=== PATIENT | female | born 1975 | race Two or more races ===

== ENCOUNTER 2020-07-09 15:04 | Outpatient (REF) | payer OTHER, SELFPAY ==
[2020-07-10 10:19] LABS: CT PCR NOT DETECTED (Not Detect.); NG PCR NOT DETECTED (Not Detect.)
[2020-07-10 13:56] LABS: BV Int Neg Control Negative (Negative); BV Int Pos Control Positive (Positive)
== END 2020-07-09 15:05 | disposition home or self-care (01) ==
LOC: HO.LAB 15:04
PROVIDERS: Visit Provider Advanced Practice Midwife
DX: Z01.419 Encounter for gynecological examination (general) (routine) without abnormal findings (principal); N89.8 Other specified noninflammatory disorders of vagina; Z20.2 Contact with and (suspected) exposure to infections with a predominantly sexual mode of transmission; N92.0 Excessive and frequent menstruation with regular cycle; R10.2 Pelvic and perineal pain
CPT/HCPCS: 87480; 87491; 87510; 87591; 87660

== ENCOUNTER 2020-07-10 17:04 | Outpatient (REF) | payer OTHER, SELFPAY ==
[2020-07-11 08:01] LABS: HBc Num1 0.08 S/CO (0.00-0.79); HIV AB/AG Nonreactive (Nonreactive); HIV Num 1 0.08 S/CO (0.00-0.99); Hepatitis B Core Antibody Nonreactive (Nonreactive); ~HepC Num1 0.09 S/CO (0.00-0.79); ~Hepatitis C Antibody Nonreactive (Nonreactive)
[2020-07-11 08:38] LABS: Syphilis Screen Nonreactive (Nonreactive)
== END 2020-07-10 17:05 | disposition home or self-care (01) ==
LOC: HO.LAB 17:04
PROVIDERS: PCP Internal Medicine; Visit Provider Advanced Practice Midwife
DX: Z20.2 Contact with and (suspected) exposure to infections with a predominantly sexual mode of transmission (principal)
CPT/HCPCS: 86704; 86780; 86803; 87389

== ENCOUNTER 2020-08-02 12:37 | Outpatient (REF) | payer OTHER, SELFPAY ==
--- NOTE | 2020-08-02 12:41 | XR_ITS ---
EXAMINATION: XR CHEST CLINICAL INFORMATION: 44-year-old female with history of other infectious and parasitic disease. COMPARISON: None TECHNIQUE: 2 views of the chest were obtained. FINDINGS: Lungs are well-inflated and clear. Trachea is midline in position. No evidence of interstitial disease, consolidation or pulmonary nodule. No pleural effusion or pneumothorax. Cardiac silhouette and pulmonary vessels are normal in size. The mediastinum and rafael have normal contour. The visualized bones, and upper abdomen, are unremarkable. XR/XR chest 2V IMPRESSION: Normal chest. No acute cardiopulmonary abnormality.
== END 2020-08-02 12:38 | disposition home or self-care (01) ==
LOC: HO.XRAY 12:37
PROVIDERS: PCP Internal Medicine; Visit Provider Hospitalist
DX: Z86.19 Personal history of other infectious and parasitic diseases (principal)
CPT/HCPCS: 71046

== ENCOUNTER 2020-09-13 15:42 | Outpatient (REF) | payer OTHER, SELFPAY ==
--- NOTE | 2020-09-13 15:45 | US_ITS ---
EXAMINATION: US PELVIC COMPLETE CLINICAL INFORMATION: Pelvic and perineal pain. COMPARISON: Pelvic ultrasound 03/19/2010. TECHNIQUE: Transabdominal and transvaginal ultrasound pelvis is performed FINDINGS: The uterus is retroverted and retroflexed measuring 7.9 cm in length, 3.9 cm in AP and 4.6 cm in transverse dimension. There is a hypoechoic lesion in the anterior body of the uterus measuring 0.6 x 0.9 x 0.6 cm. It is likely a fibroid. No additional lesions seen. Endometrial thickness is 1.0 cm. Right ovary measures 3.1 x 1.5 x 1.2 cm and volume 2.9 mL. There is an echogenic corpus luteal cyst measuring 1.7 x 0.8 x 1.3 cm. Previously right ovary measured 2.2 x 2.9 x 1.8 cm. Left ovary measures 2.6 x 1.7 x 1.4 cm and volume 3.2 mL. There is an anechoic cyst measuring 1.4 x 1.1 x 1.2 cm. Previously left ovary measured 1.9 x 2.9 x 0.8 cm. There is no free fluid in the cul-de-sac. US/US transvaginal IMPRESSION: There is retroverted and retroflexed uterus with a small uterine fibroid. There is a corpus luteal cyst right ovary and a simple cyst left ovary. No free fluid seen in the cul-de-sac.
--- NOTE | 2020-09-13 15:45 | US_ITS ---
EXAMINATION: US PELVIC COMPLETE CLINICAL INFORMATION: Pelvic and perineal pain. COMPARISON: Pelvic ultrasound 03/19/2010. TECHNIQUE: Transabdominal and transvaginal ultrasound pelvis is performed FINDINGS: The uterus is retroverted and retroflexed measuring 7.9 cm in length, 3.9 cm in AP and 4.6 cm in transverse dimension. There is a hypoechoic lesion in the anterior body of the uterus measuring 0.6 x 0.9 x 0.6 cm. It is likely a fibroid. No additional lesions seen. Endometrial thickness is 1.0 cm. Right ovary measures 3.1 x 1.5 x 1.2 cm and volume 2.9 mL. There is an echogenic corpus luteal cyst measuring 1.7 x 0.8 x 1.3 cm. Previously right ovary measured 2.2 x 2.9 x 1.8 cm. Left ovary measures 2.6 x 1.7 x 1.4 cm and volume 3.2 mL. There is an anechoic cyst measuring 1.4 x 1.1 x 1.2 cm. Previously left ovary measured 1.9 x 2.9 x 0.8 cm. There is no free fluid in the cul-de-sac. US/US pelvic complete IMPRESSION: There is retroverted and retroflexed uterus with a small uterine fibroid. There is a corpus luteal cyst right ovary and a simple cyst left ovary. No free fluid seen in the cul-de-sac.
== END 2020-09-13 15:43 | disposition home or self-care (01) ==
LOC: HO.US 15:42
PROVIDERS: Visit Provider Advanced Practice Midwife
DX: R10.2 Pelvic and perineal pain (principal)
CPT/HCPCS: 76830; 76856

== ENCOUNTER → 2020-09-24 11:58 | Outpatient (BNVA) | payer OTHER, SELFPAY | PROVIDERS: Visit Provider Advanced Practice Midwife ==

== ENCOUNTER 2020-09-28 08:41 | Outpatient (REF) | payer OTHER, SELFPAY ==
[2020-09-28 09:00] LABS: COVID-19 Test Negative (Negative); IDNOW Serial# 55D5AD1C
== END 2020-09-28 08:42 | disposition home or self-care (01) ==
LOC: HO.EMPCOV 08:41
PROVIDERS: Visit Provider Internal Medicine
DX: Z20.822 Contact with and (suspected) exposure to COVID-19 (principal)
CPT/HCPCS: 36415; 87635; C9803

== ENCOUNTER 2020-10-18 07:47 | Outpatient (REF) | payer OTHER, SELFPAY ==
[2020-10-19 08:58] LABS: BV Int Neg Control Negative (Negative); BV Int Pos Control Positive (Positive)
[2020-10-19 14:01] LABS: C. trachomatis RNA TMA NOT DETECTED (NOT DETECTED); N. gonorrhoeae RNA TMA NOT DETECTED (NOT DETECTED)
== END 2020-10-18 07:48 | disposition home or self-care (01) ==
LOC: HO.LAB 07:47
PROVIDERS: PCP Internal Medicine; Visit Provider Advanced Practice Midwife
DX: N76.0 Acute vaginitis (principal); R10.2 Pelvic and perineal pain; B96.89 Other specified bacterial agents as the cause of diseases classified elsewhere; Z20.2 Contact with and (suspected) exposure to infections with a predominantly sexual mode of transmission; Z30.09 Encounter for other general counseling and advice on contraception
CPT/HCPCS: 36415; 81003; 87480; 87491; 87510; 87591; 87660

== ENCOUNTER 2020-11-16 17:05 | Outpatient (REF) | payer OTHER, SELFPAY ==
[2020-11-18 05:53] LABS: Rubella IgG Antibody 3.89 Index; Rubeola IgG (Measles) <13.50 AU/mL
[2020-11-19 08:17] LABS: HBS Num1 > 1000.00 mIU/mL (0-7.99); ~Hepatitis B Surface Antibody REACTIVE (Nonreactive)
== END 2020-11-16 17:06 | disposition home or self-care (01) ==
LOC: HO.LAB 17:05
PROVIDERS: PCP Internal Medicine; Visit Provider Internal Medicine
DX: Z01.84 Encounter for antibody response examination (principal)
CPT/HCPCS: 36415; 86706; 86735; 86762; 86765; 86787

== ENCOUNTER 2020-12-01 10:54 | Outpatient (REF) | payer OTHER, SELFPAY ==
--- NOTE | ~2020-12-01 | MM_ITS ---
EXAMINATION: MM SCREENING DIGITAL BREAST TOMOSYNTHESIS, BILATERAL CLINICAL INFORMATION: Screening. Asymptomatic. The lifetime risk of breast cancer based on the Tyrer-Cuzick Model is 7%. COMPARISON: Mammography: 04/01/2019, 01/01/2018 TECHNIQUE: Digital breast tomosynthesis is performed in both the craniocaudal and mediolateral oblique views along with computer-aided detection (CAD). Synthesized 2D images are generated from the tomosynthesis. FINDINGS: There are scattered areas of fibroglandular density (ACR BI-RADS breast composition Category b). There are no significant masses, abnormal calcifications, or other abnormalities. Parenchymal pattern is similar to prior studies. The axilla and skin contours are unremarkable. MM/MM tomosynthesis screening BI IMPRESSION: No mammographic evidence of malignancy. ASSESSMENT: BI-RADS 1: Negative RECOMMENDATION: Routine annual mammography screening. This patient's information was entered into a reminder system with a target due date for their next mammogram.
== END 2020-12-01 10:55 | disposition home or self-care (01) ==
LOC: HO.MAMMO 10:54
PROVIDERS: Visit Provider Advanced Practice Midwife
DX: Z12.31 Encounter for screening mammogram for malignant neoplasm of breast (principal)
CPT/HCPCS: 77063; 77067

== ENCOUNTER 2021-04-18 18:19 | Outpatient (REF) | payer OTHER, SELFPAY ==
--- NOTE | ~2021-04-18 | MR_ITS ---
EXAMINATION: MRI SHOULDER WITHOUT CONTRAST, LEFT CLINICAL INFORMATION: Shoulder pain. COMPARISON: None. TECHNIQUE: MRI of the shoulder without contrast is performed in a 1.5 Nalini high-field scanner. FINDINGS: CORACOACROMIAL ARCH: Mild acromioclavicular arthritis. Trace edema/ fluid in the subacromial-subdeltoid space. Undersurface of the acromion is flat. ROTATOR CUFF: Mild supraspinatus tendinosis. There is a low T1/T2 signal focus in the posterior fibers measuring approximately 0.8 x 0.6 cm (AP, ML), raising concern for calcific tendinitis. Recommend correlation x-ray. There is additional relative low signal in the supraspinatus fibers, which could be related to fibers spared from the tendinosis versus additional areas of calcific tendinitis. No measurable tear. Mild infraspinatus tendinosis. Teres minor is intact. Mild subscapularis tendinosis. ROTATOR CUFF MUSCLES: No muscle atrophy or fatty infiltration. BICEPS TENDON: Intact. LABRUM/CAPSULE: No focal labral tear is seen. Inferior capsule is intact. GLENOHUMERAL JOINT/MARROW: There is a 1 cm T2 bright focus with scattered foci of internal low signal, well-defined margins in the posterior aspect of the lateral humeral head/greater tuberosity. This has a nonaggressive appearance. This could represent degenerative changes or a low-grade chondroid lesion. No evidence of fracture. No significant effusion. MR/MR shoulder LT wo con IMPRESSION: 1. Mild supraspinatus tendinosis. Findings suggest focus of calcific tendinitis measuring 0.8 x 0.6 cm. Additional areas of low signal could be related to fibers spared from tendinosis versus additional calcific tendinitis. Recommend correlation with x-ray. No measurable tear of full-thickness defect is seen. 2. Mild infraspinatus and subscapularis tendinosis. 3. Mild acromioclavicular arthritis. 4. There is a 1 cm focus in the posterolateral humeral head/greater tuberosity has a nonaggressive appearance, could be related to degenerative changes, low-grade chondroid lesion.
== END 2021-04-18 18:20 | disposition home or self-care (01) ==
LOC: HO.MRI 18:19
PROVIDERS: PCP Internal Medicine; Visit Provider Nurse Practitioner Family
DX: M25.512 Pain in left shoulder (principal)
CPT/HCPCS: 73221

== ENCOUNTER 2021-11-07 11:55 | Outpatient (REF) | payer OTHER, SELFPAY ==
[2021-11-08 09:18] LABS: CT PCR NOT DETECTED (Not Detect.); NG PCR NOT DETECTED (Not Detect.)
[2021-11-08 09:43] LABS: BV Int Neg Control Negative (Negative); BV Int Pos Control Positive (Positive)
== END 2021-11-07 11:56 | disposition home or self-care (01) ==
LOC: HO.LNP 11:55
PROVIDERS: Visit Provider Internal Medicine
DX: N89.8 Other specified noninflammatory disorders of vagina (principal)
CPT/HCPCS: 87480; 87491; 87510; 87591; 87660

== ENCOUNTER 2023-01-29 13:08 | Outpatient (REF) | payer OTHER, SELFPAY ==
[2023-01-30 10:26] LABS: CT PCR NOT DETECTED (Not Detect.); NG PCR NOT DETECTED (Not Detect.)
[2023-01-30 11:13] LABS: BV Int Neg Control Negative (Negative); BV Int Pos Control Positive (Positive)
== END 2023-01-29 13:09 | disposition home or self-care (01) ==
LOC: HO.LAB 13:08
PROVIDERS: PCP Internal Medicine; Visit Provider Advanced Practice Midwife
DX: Z01.419 Encounter for gynecological examination (general) (routine) without abnormal findings (principal); N92.1 Excessive and frequent menstruation with irregular cycle; Z20.2 Contact with and (suspected) exposure to infections with a predominantly sexual mode of transmission
CPT/HCPCS: 0353U; 81025; 87480; 87510; 87660

== ENCOUNTER 2023-01-29 13:51 | Outpatient (REF) | payer OTHER, SELFPAY ==
[2023-02-03 22:08] LABS: HPV mRNA E6/E7 rflx Not Detected (Not Detected)
== END 2023-01-29 13:52 | disposition home or self-care (01) ==
LOC: HO.LNP 13:51
PROVIDERS: Visit Provider Advanced Practice Midwife
DX: Z01.419 Encounter for gynecological examination (general) (routine) without abnormal findings (principal); N92.1 Excessive and frequent menstruation with irregular cycle; Z20.2 Contact with and (suspected) exposure to infections with a predominantly sexual mode of transmission
CPT/HCPCS: 87624; 88142

== ENCOUNTER 2023-03-13 12:41 | Outpatient (REF) | payer OTHER, SELFPAY ==
--- NOTE | ~2023-03-13 | US_ITS ---
EXAMINATION: US PELVIS CLINICAL INFORMATION: Excessive and frequent menstruation. Last menstrual period 03/09/2023. COMPARISON: Pelvic ultrasound 09/13/2020, 03/19/2010. TECHNIQUE: Transabdominal and transvaginal ultrasound pelvis is performed. FINDINGS: The uterus is retroverted, retroflexed, heterogeneous and measures 9.5 x 4.9 x 6.9 cm, volume 168.18 mL. There is a 0.9 x 1.0 x 1.1 cm echogenic mass at the junction of the uterus and endometrium, previously measured 0.6 x 0.9 x 0.6 cm. Differential considerations include submucosal fibroid and less likely polyp. Endometrial thickness is 0.4 cm. Right ovary measures 2.8 x 1.2 x 1.0 cm, volume 1.8 mL, and was seen only on transvaginal ultrasound. Right ovary is grossly unremarkable. Left ovary measures 2.9 x 1.6 x 2.2 cm, volume 5.3 mL. Left ovarian 1.9 x 1.2 x 1.8 cm simple cyst is likely physiologic. There is no indication at this time for further followup. There is no significant free fluid. Prominent vasculature in the bilateral adnexal regions raises the possibility of pelvic congestion syndrome. US/US pelvic and transvaginal IMPRESSION: 1.1 cm echogenic mass at the junction of the uterus and endometrium, has increased in size. Differential considerations include submucosal fibroid and less likely polyp. Gynecologic consultation recommended to determine further management for this patient with abnormal uterine bleeding. Endometrial thickness is 0.4 cm. Unremarkable bilateral ovaries. Prominent vasculature in the bilateral adnexal regions raises the possibility of pelvic congestion syndrome.
== END 2023-03-13 12:42 | disposition home or self-care (01) ==
LOC: HO.US 12:41
PROVIDERS: Visit Provider Advanced Practice Midwife
DX: N92.0 Excessive and frequent menstruation with regular cycle (principal)
CPT/HCPCS: 76830; 76856

== ENCOUNTER 2023-03-25 11:33 | Outpatient (AMB) | payer OTHER, SELFPAY ==
--- NOTE | 2023-03-25 11:34 | MHC.OFFVIS ---
Intake Vital Signs 03/25/23 11:35 Height 5 ft 3.5 in Weight 148 lb BMI 25.8 BP 96/60 Intake Visit Reasons: US follow up Intake Note: The patient agreed to use of a emergency medical technician/driver during this encounter. Scribed for RAJAN Mcdonough by Angélica Zamora emergency medical technician/driver, on 03/25/2023 at 11:46 am EST. Allergies diphenhydramine [From Benadryl] Adverse Reaction (Verified 03/25/23 11:35) Anxiety, legs getting numb Is last menstrual period known: Yes Last menstrual period: 03/09/23 HPI HPI Comments History of Present Illness Details She is here to discuss US results regarding heavy menstrual bleeding. Reports she has uncomfortable intimacy due to her retroverted uterus. [facility] Medical History Anemia Endometrial polyp Hx of anxiety disorder Hx of breast lump Hx of gastroesophageal reflux (GERD) Hx of migraine headaches Hx of seasonal allergies Migraine without aura Surgical History History of surgical removal of ganglion cyst Hx of tubal ligation Family History Father Hx of anxiety disorder Hx of human immunodeficiency virus I infection Mother Diabetes mellitus Hypertension Maternal Grandfather Diabetes mellitus Hypertension CVD (cardiovascular disease) Paternal Grandmother Hx of glaucoma Hx of acute arthritis Paternal Grandfather Myocardial infarction Social History Housing: Apartment Alcohol intake: current Alcohol intake frequency: a few times a month Patient Tobacco Use Status: Never used Tobacco e-Cigarette/Vaping Use: Never Used Second Hand Smoke Exposure: No Current occupational status: employed Sexual orientation: Straight/Heterosexual Gender identity: Female Female Reproductive History Menstrual Age of Menarche: 13 Date of last menstrual period: 03/09/23 Physical Exam Vital Signs: Last Vital Signs BP 96/60 03/25/23 11:35 BMI result Body Mass Index 25.8 Const General: cooperative, healthy appearing, comfortable, no acute distress, well developed, alert and awake Results Reviewed Results Reviewed: EXAMINATION:? US PELVIS CLINICAL INFORMATION:? Excessive and frequent menstruation. Last menstrual period 03/09/2023. COMPARISON: Pelvic ultrasound 09/13/2020, 03/19/2010. TECHNIQUE: Transabdominal and transvaginal ultrasound pelvis is performed.? FINDINGS: The uterus is retroverted, retroflexed, heterogeneous and measures 9.5 x 4.9 x 6.9 cm, volume 168.18 mL. There is a 0.9 x 1.0 x 1.1 cm echogenic mass at the junction of the uterus and endometrium, previously measured 0.6 x 0.9 x 0.6 cm. Differential considerations include submucosal fibroid and less likely polyp. Endometrial thickness is 0.4 cm. Right ovary measures 2.8 x 1.2 x 1.0 cm, volume 1.8 mL, and was seen only on transvaginal ultrasound. Right ovary is grossly unremarkable. Left ovary measures 2.9 x 1.6 x 2.2 cm, volume 5.3 mL. Left ovarian 1.9 x 1.2 x 1.8 cm simple cyst is likely physiologic. There is no indication at this time for further followup. There is no significant free fluid. Prominent vasculature in the bilateral adnexal regions raises the possibility of pelvic congestion syndrome. US/US pelvic and transvaginal IMPRESSION: 1.1 cm echogenic mass at the junction of the uterus and endometrium, has increased in size. Differential considerations include submucosal fibroid and less likely polyp. ? Gynecologic consultation recommended to determine further management for this patient with abnormal uterine bleeding. ? Endometrial thickness is 0.4 cm. ? Unremarkable bilateral ovaries. ? Prominent vasculature in the bilateral adnexal regions raises the possibility of pelvic congestion syndrome. Assessment & Plan Assessment & Plan (1) Heavy menstrual bleeding: Code(s): N92.0 - Excessive and frequent menstruation with regular cycle Plan: Discussed: US findings of: 1.1 cm echogenic mass at the junction of the uterus and endometrium, has increased in size. Differential considerations include submucosal fibroid and less likely polyp. Gynecologic consultation recommended to determine further management for this patient with abnormal uterine bleeding. Endometrial thickness is 0.4 cm. Unremarkable bilateral ovaries. Prominent vasculature in the bilateral adnexal regions raises the possibility of pelvic congestion syndrome. Repositioning for intimacy and depth of penetration, self help measures. Schedule consult with Dr. Levy regarding endometrial ?polyp/fibroid mass for hysteropscopy evaluation. Encouraged labs today as she forgot to have them done. Reviewed different BC options for cycle control including IUD in the future. Encouraged patient to sign up for patient portal. All of her questions and concerns were addressed to the best of my ability and shared decision making. She is agreeable to plan of care. (2) Encounter to discuss test results: Code(s): Z71.2 - Person consulting for explanation of examination or test findings (3) Endometrial polyp: Code(s): N84.0 - Polyp of corpus uteri Coding Level of Care Code Est Pt Level 3 (64239) Diagnoses Heavy menstrual bleeding N92.0 Encounter to discuss test results Z71.2 Endometrial polyp N84.0
[2023-03-25 11:35] VITALS: BP 96/60; BMI 25.8
== END 2023-03-25 11:52 | disposition home or self-care (01) ==
LOC: HO.HWS 11:33
PROVIDERS: PCP Internal Medicine; Visit Provider Advanced Practice Midwife
DX: N92.0 Excessive and frequent menstruation with regular cycle (principal); Z71.2 Person consulting for explanation of examination or test findings; N84.0 Polyp of corpus uteri
CPT/HCPCS: 99213

== ENCOUNTER → 2023-03-25 11:33 | Outpatient (BNVA) | payer OTHER, SELFPAY | PROVIDERS: PCP Internal Medicine; Visit Provider Advanced Practice Midwife ==

== ENCOUNTER 2023-03-25 12:01 | Outpatient (REF) | payer OTHER, SELFPAY ==
[2023-03-25 13:36] LABS: Hematocrit 39.3 % (37.0-47.0); Hemoglobin 12.5 g/dl (12.0-16.0); Mean Corpuscular HGB Conc 31.8 g/dl (31.0-35.0); Mean Corpuscular Hemoglobin 28.2 pg (27.0-33.0); Mean Corpuscular Volume 88.7 fL (80.0-98.0); Mean Platelet Volume 12.1 fL (9.4-12.3); Platelet Count 281 X10*3/uL (160-400); Red Blood Count 4.43 X10*6/uL (4.20-5.50); Red Cell Distribution Width 13.8 % (11.0-16.0); White Blood Count 4.8 X10*3/uL (4.8-10.8)
[2023-03-25 14:16] LABS: Thyroid Stimulating Hormone 0.61 uIU/mL (0.32-4.0)
[2023-03-25 14:48] LABS: Syphilis Screen Nonreactive (Nonreactive)
[2023-03-26 05:47] LABS: HIV AB/AG Nonreactive (Nonreactive); HIV Num 1 0.06 S/CO (0.00-0.99); Hepatitis B Core Antibody Nonreactive (Nonreactive); ~HepC Num1 0.08 S/CO (0.00-0.79); ~Hepatitis C Antibody Nonreactive (Nonreactive)
== END 2023-03-25 12:02 | disposition home or self-care (01) ==
LOC: HO.10HDL 12:01
PROVIDERS: Visit Provider Advanced Practice Midwife
DX: Z11.4 Encounter for screening for human immunodeficiency virus [HIV] (principal); N92.1 Excessive and frequent menstruation with irregular cycle; Z20.2 Contact with and (suspected) exposure to infections with a predominantly sexual mode of transmission
CPT/HCPCS: 36415; 84443; 85027; 86704; 86780; 86803; 87389

== ENCOUNTER 2023-04-02 11:31 | Outpatient (AMB) | payer OTHER, SELFPAY ==
[2023-04-02 11:34] VITALS: BP 110/76; BMI 25.8
--- NOTE | 2023-04-02 11:34 | MHC.OFFVIS ---
Intake Vital Signs 04/02/23 11:34 Height 5 ft 3.5 in Weight 148 lb BMI 25.8 BP 110/76 Intake Visit Reasons: pre op Calibration Specialist Required: No Machine Programmer: Machine Programmer Present Allergies diphenhydramine [From Benadryl] Adverse Reaction (Verified 04/02/23 11:34) Anxiety, legs getting numb Is last menstrual period known: Yes Last menstrual period: 06/21/20 Post menopausal: No Patient : No Do you need a note to return to daycare/school/sports/work: Yes (for surgery on thursday) HPI HPI Comments History of Present Illness Details Presenting referred from them Precious Olivera CNM regarding abnormal pelvic ultrasound. The patient was seen for abnormal uterine bleeding , the following workup was done.: H&H= 12.5/39.3 TSH, GC and chlamydia were negative. Co testing was done was negative. Last Mammogram was done in 02/11 was BI-RADS 1 Pelvic ultrasound showed the following: The uterus is retroverted, retroflexed, heterogeneous and measures 9.5 x 4.9 x 6.9 cm, volume 168.18 mL. There is a 0.9 x 1.0 x 1.1 cm echogenic mass at the junction of the uterus and endometrium, previously measured 0.6 x 0.9 x 0.6 cm. Differential considerations include submucosal fibroid and less likely polyp. Endometrial thickness is 0.4 cm. Right ovary measures 2.8 x 1.2 x 1.0 cm, volume 1.8 mL, and was seen only on transvaginal ultrasound. Right ovary is grossly unremarkable. Left ovary measures 2.9 x 1.6 x 2.2 cm, volume 5.3 mL. Left ovarian 1.9 x 1.2 x 1.8 cm simple cyst is likely physiologic. There is no indication at this time for further followup. There is no significant free fluid. Prominent vasculature in the bilateral adnexal regions raises the possibility of pelvic congestion syndrome. PFSH Medical History Anemia Endometrial polyp Hx of anxiety disorder Hx of breast lump Hx of gastroesophageal reflux (GERD) Hx of migraine headaches Hx of seasonal allergies Migraine without aura Surgical History History of surgical removal of ganglion cyst Hx of tubal ligation Family History Father Hx of anxiety disorder Hx of human immunodeficiency virus I infection Mother Diabetes mellitus Hypertension Maternal Grandfather Diabetes mellitus Hypertension CVD (cardiovascular disease) Paternal Grandmother Hx of glaucoma Hx of acute arthritis Paternal Grandfather Myocardial infarction Social History Housing: Apartment Alcohol intake: current Alcohol intake frequency: a few times a month Patient Tobacco Use Status: Never used Tobacco e-Cigarette/Vaping Use: Never Used Second Hand Smoke Exposure: No Current occupational status: employed Sexual orientation: Straight/Heterosexual Gender identity: Female Female Reproductive History Menstrual Age of Menarche: 13 Date of last menstrual period: 06/21/20 Total pregnancies: 2 Full term: 2 Date of last pap smear: 02/02/23 (negative) Review of Systems Card Reports as per HPI and Reports no additional complaints Resp Reports as per HPI and Reports no additional complaints GI Reports as per HPI and Reports no additional complaints Reports as per HPI Physical Exam Vital Signs: Last Vital Signs BP 110/76 04/02/23 11:34 BMI result Body Mass Index 25.8 Const General: cooperative, healthy appearing and comfortable Chest Chest palpation & inspection: normal inspection of the chest and normal palpation of entire chest wall Breast/axilla inspection: normal inspection of the breasts and normal inspection of the axillae Breast/axilla palpation: normal palpation of the breasts, normal palpation of the axillae and no axillary lymphadenopathy Resp Effort & Inspection: normal respiratory effort Auscultation: clear to auscultation bilaterally Percussion: percussion normal Cardio Palpation: normal PMI Rate: regular rate Rhythm: regular rhythm Heart sounds: no murmurs and no rubs Peripheral pulses: Peripheral pulses 2+ throughout GI Inspection: Yes normal to inspection Palpation (GI): Soft to palpation, nontender, no guarding, not rigid and No hepatosplenomegaly present Percussion: Yes normal to percussion Auscultation: normal bowel sounds Rectal Exam - Female: deferred Assessment & Plan Assessment & Plan (1) Abnormal ultrasound of endometrium: Comment: Submucosal myoma versus polyp Code(s): R93.5 - Abnormal findings on diagnostic imaging of other abdominal regions, including retroperitoneum Plan: Mammogram ordered. Discussed with the patient the finding on ultrasound showing possible submucosal myoma versus polyp. Recommended hysteroscopy D&C possible polypectomy/myomectomy. Discussed with the patient the procedure , all benefits and risks including but not limited to inability to complete the procedure , bleeding, infection, possible need for blood transfusion with all its risk ( HIV,syphilis, Hepatitis, anaphylaxis shock, others..), injury to bladder, rectum, possible need for laparoscopy/laparotomy or hysterectomy. The patient verbalized understanding and signed the consent. Instructions given the patient to schedule a 2 week postoperative appointment Orders: Orders MM screening mammo BI Today Z12.31 - Encounter for screening mammogram for malignant neoplasm of breast Coding Level of Care Code Est Pt Level 3 (11914) Diagnoses Abnormal ultrasound of endometrium R93.5
== END 2023-04-02 13:38 | disposition home or self-care (01) ==
LOC: HO.HWS 11:31
PROVIDERS: PCP Internal Medicine; Visit Provider Obstetrics & Gynecology
DX: R93.5 Abnormal findings on diagnostic imaging of other abdominal regions, including retroperitoneum (principal)
CPT/HCPCS: 99213

== ENCOUNTER → 2023-04-02 11:31 | Outpatient (BNVA) | payer OTHER, SELFPAY | PROVIDERS: PCP Internal Medicine; Visit Provider Obstetrics & Gynecology ==

== ENCOUNTER 2023-05-01 06:03 | Day surgery (SDC) | payer OTHER, SELFPAY ==
[2023-04-29 10:03] VITALS: BMI 25.8
--- NOTE | 2023-04-30 08:47 | P.CONAN_ITS ---
Documented by User: Ana Baird NP 04/30/23 08:48 HPI - Anesthesia Eval Consult details Narrative: 47yo F for D&C Hysteroscopy poss myomectomy/polypectomy s/p tubal PMFSH Active Problems Active Problems: All Active Problems (Updated 04/02/23 @ 11:39 by Srinivasa Levy MD) Abnormal ultrasound of endometrium (Acute) Endometrial polyp (Acute) Migraine without aura (Acute) Left shoulder pain (Acute) IBS (irritable bowel syndrome) (Acute) Abdominal pain (Acute) Dyslipidemia (Acute) Vaginal candidiasis (Acute) History of 2019 novel coronavirus disease (COVID-19) (Acute) Pelvic pain in female (Acute) Vaginal odor (Acute) Heavy menstrual bleeding (Acute) Past Medical History Medical History (Updated 05/01/23 @ 06:13 by Kanwal Alston RN) Borderline high cholesterol IBS (irritable bowel syndrome) Endometrial polyp Migraine without aura Anemia Hx of breast lump Hx of anxiety disorder Hx of seasonal allergies Hx of migraine headaches Hx of gastroesophageal reflux (GERD) Family History Family History Father Hx of anxiety disorder Hx of human immunodeficiency virus I infection Mother Diabetes mellitus Hypertension Maternal Grandfather Diabetes mellitus Hypertension CVD (cardiovascular disease) Paternal Grandmother Hx of glaucoma Hx of acute arthritis Paternal Grandfather Myocardial infarction Surgical History Surgical History (Updated 05/01/23 @ 06:14 by Kanwal Alston RN) History of lumpectomy of right breast Hx of tubal ligation History of surgical removal of ganglion cyst Social History Social History Housing: Apartment Alcohol intake: current Alcohol intake frequency: a few times a month Patient Tobacco Use Status: Never used Tobacco e-Cigarette/Vaping Use: Never Used Second Hand Smoke Exposure: No Current occupational status: employed Sexual orientation: Straight/Heterosexual Gender identity: Female Meds Allergies Allergy/AdvReac Type Severity Reaction Status Date / Time diphenhydramine AdvReac Anxiety, Verified 05/01/23 06:14 [From Benadryl] legs getting numb Home Medications Medication Instructions Recorded Confirmed Last Taken Type eletriptan 40 mg tablet (Relpax) 40 mg PO BID PRN Migraine Headache 07/09/20 05/01/23 Unknown History topiramate 25 mg tablet (Topamax) 25 mg PO DAILY 07/09/20 05/01/23 Unknown Histo ry cetirizine 10 mg tablet (Zyrtec) 10 mg PO DAILY 01/29/21 05/01/23 Unknown History Exam Exam Date and Time: April 30, 2023 0847 Height,Weight and Vital Signs: Height 5 ft 3.5 in Weight 67.132 kg Assessment and Plan Assessment Anesthesia Assessment: Chart Reviewed Documented by User: Daljit Grimes MD 05/01/23 07:29 [facility] Past Medical History Medical History (Updated 05/01/23 @ 06:13 by Kanwal Alston RN) Borderline high cholesterol IBS (irritable bowel syndrome) Endometrial polyp Migraine without aura Anemia Hx of breast lump Hx of anxiety disorder Hx of seasonal allergies Hx of migraine headaches Hx of gastroesophageal reflux (GERD) Patient : No Family History Family History Father Hx of anxiety disorder Hx of human immunodeficiency virus I infection Mother Diabetes mellitus Hypertension Maternal Grandfather Diabetes mellitus Hypertension CVD (cardiovascular disease) Paternal Grandmother Hx of glaucoma Hx of acute arthritis Paternal Grandfather Myocardial infarction Family history of problems with anesthesia: No Surgical History Surgical History (Updated 05/01/23 @ 06:14 by Kanwal Alston RN) History of lumpectomy of right breast Hx of tubal ligation History of surgical removal of ganglion cyst History of Problems with Anesthesia: No Social History Social History Housing: Apartment Alcohol intake: current Alcohol intake frequency: a few times a month Patient Tobacco Use Status: Never used Tobacco e-Cigarette/Vaping Use: Never Used Second Hand Smoke Exposure: No Current occupational status: employed Sexual orientation: Straight/Heterosexual Gender identity: Female Meds Allergies Allergy/AdvReac Type Severity Reaction Status Date / Time diphenhydramine AdvReac Anxiety, Verified 05/01/23 06:14 [From Arben] legs getting numb Home Medications Medication Instructions Recorded Confirmed Last Taken Type eletriptan 40 mg tablet (Relpax) 40 mg PO BID PRN Migraine Headache 07/09/20 05/01/23 Unknown History topiramate 25 mg tablet (Topamax) 25 mg PO DAILY 07/09/20 05/01/23 Unknown History cetirizine 10 mg tablet (Zyrtec) 10 mg PO DAILY 01/29/21 05/01/23 Unknown History Exam Airway Mallampati Class: II TM Dist: >3cm Neck ROM: Full Loose/Missing/Broken Teeth: No Heart: ok Lungs: ok Assessment and Plan Assessment Anesthesia Assessment: Anesthesia Plan Discussed Final Anesthetic Review Family History of Problems with Anesthesia: No History of Problems with Anesthesia: No NPO: Yes ASA Class: II Final Preanesthetic Review: No Changes in Pt Med Stat, Meds/Allgs Chart Reviewed, Consent Obtained/Reviewed and Anes Risks/Benef Reviewed Patient Risk: Low Procedure Risk: Low Anesthetic Plan Anesthetic Plan: GA and Agree w/ Assess. and Plan Disposition: Standard PACU
[2023-05-01 06:20] VITALS: BP 108/71; PULSE 69; RESP 15; TEMP 36.4; O2SAT 100
[2023-05-01 06:22] LABS: UPreg QC Valid YES; Urine Pregnancy NEGATIVE (NEGATIVE)
[2023-05-01] MEDS: Lactated Ringers 1,000 ML 100 ML IVCONT (06:34)
--- NOTE | 2023-05-01 07:33 | MHC.SHP ---
Pre-Procedural Eval Section A Date of Service: 05/01/23 The patient is an INPATIENT: No Changes since office visit: No Cold of Flu in the past 2 weeks, No New Medical Problems, No Changes in Medication and No Patient answered all questions The History & Physical has been completed within 30 days and I have reviewed it.: Yes Section B Chief Complaint: Abnormal findings on diagnostic imaging of other a Allergies: Allergies Allergy/AdvReac Type Severity Reaction Status Date / Time diphenhydramine AdvReac Anxiety, Verified 05/01/23 06:14 [From Benadryl] legs getting numb Plan Diagnosis/Plan: Unchanged I have reviewed the history and physical and performed a pertinent physical examination on my patient. No changes have occurred unless specified. Time Spent With Patient Time: Total time managing care of this patient today ____ minutes.
--- NOTE | 2023-05-01 08:08 | PM.OP ---
Brief Operative Note Date of Service: 05/01/23 Pre-op diagnosis: AUB, abnormal endometrium by US Post-op diagnosis: same (normal endometrial cavity no evidence of pathology) Procedure: Hysteroscopy D&C Surgeon: Srinivasa Levy MD Anesthesia: GLMA Was an Elevator Installer used for this Procedure?: No Estimated blood loss (mL): 0 Pathology: other (Endometrial Scrapping.) Condition: stable Disposition: PACU
[2023-05-01 08:12] VITALS: BP 109/73; PULSE 77; RESP 16; TEMP 36.5; O2SAT 96
[2023-05-01 08:17] VITALS: BP 110/72; PULSE 72; RESP 16; O2SAT 99
--- NOTE | 2023-05-01 08:17 | PM.OP ---
Brief Operative Note Surgeon: Srinivasa Levy MD Was an Wet Crown Blocking Operator used for this Procedure?: No
--- NOTE | 2023-05-01 08:19 | W.PM.OPN ---
Operative Note Operative Note Date of Service: 05/01/23 Narrative: Preop Diagnosis: Abnormal uterine bleeding, abnormal endometrium by US Operation: Diagnostic Hysteroscopy, Dilataion & Curettage Post Op Diagnosis: Normal endometrial cavity with no evidence of pathology QBL: Minimal Anesthesia: GLMA Surgeon: Srinivasa Levy MD Building Equipment Operator: None Complication: None Pathology: Endometrial Scrapings Procedure: The patient was put in the dorsal lithotomy position, scrubbed, and draped in the usual manner. A sterile speculum was inserted in the patient's vagina. The anterior lip of the cervix was grasped with a single tooth tenaculum. The cervix was dilated up to 5 mm, then the scope was inserted in the patient's uterus. Inspection revealed normal endometrial cavity with no evidence of pathology. The scope was then taken out from the uterine cavity, sharp curettings was carried on with minimal to moderate amount of tissues retrieved. At the end of the procedure, all instruments were taken out of the patient uterine and vaginal cavity. The single tooth tenaculum was removed and homeostasis was assured using pressure and Monsel solution. The patient tolerated the procedure well and was transferred to the PACU in a stable condition.
[2023-05-01 08:27] VITALS: BP 110/72; PULSE 64; RESP 16; O2SAT 100
[2023-05-01 08:42] VITALS: BP 109/73; PULSE 61; RESP 16; O2SAT 100
[2023-05-01 08:54] VITALS: BP 102/67; PULSE 63; RESP 16; TEMP 36.6; O2SAT 100
== END 2023-05-01 09:30 | disposition home or self-care (01) ==
PROVIDERS: PCP Internal Medicine; Visit Provider Obstetrics & Gynecology
PROC: 0UDB8ZZ Extraction of Endometrium, Via Natural or Artificial Opening Endoscopic (ICD-10-PCS; CPT 58558; principal; 2023-05-01 07:30)
DX: N93.9 Abnormal uterine and vaginal bleeding, unspecified (principal); D64.9 Anemia, unspecified; G43.009 Migraine without aura, not intractable, without status migrainosus; Z98.51 Tubal ligation status; Z79.899 Other long term (current) drug therapy; Z88.1 Allergy status to other antibiotic agents
CPT/HCPCS: 58558; 81025; 88305; J1885; J2405; J3010

== ENCOUNTER → 2023-05-01 06:03 | Outpatient (BNV) | payer OTHER, SELFPAY | PROVIDERS: PCP Internal Medicine; Visit Provider Obstetrics & Gynecology | DX: R93.5 Abnormal findings on diagnostic imaging of other abdominal regions, including retroperitoneum (principal) | CPT/HCPCS: 58558 ==

== ENCOUNTER → 2023-05-08 11:14 | Outpatient (BNVA) | payer OTHER, SELFPAY | PROVIDERS: PCP Internal Medicine | DX: Z13.89 Encounter for screening for other disorder (principal) | CPT/HCPCS: 99204 ==

== ENCOUNTER 2023-05-10 12:52 | Emergency (ER) | payer OTHER, SELFPAY ==
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
--- NOTE | ~2023-05-10 | XR_ITS ---
EXAMINATION: XR LUMBOSACRAL SPINE CLINICAL INFORMATION: Back pain COMPARISON: 11/10/2017 TECHNIQUE: Three views of the lumbosacral spine. FINDINGS: The vertebral bodies and posterior elements are normal. The disc spaces are preserved and the vertebral alignment is normal. The paraspinal soft tissues are normal. Bowel gas pattern is unremarkable. XR/XR lumbar spine 2-3V IMPRESSION: Unremarkable examination.
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
[2023-05-10 13:48] VITALS: BP 121/80; PULSE 80; RESP 18; TEMP 36.6; O2SAT 100; BMI 27.1
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
[2023-05-10] MEDS: 0.9 % Sodium Chloride 1,000 ML 999 ML IV (15:33)
[2023-05-10] MEDS: Ketorolac Tromethamine 15 MG/ML VIAL IVPUSH (15:33)
[2023-05-10 15:47] VITALS: BP 116/80; RESP 14; O2SAT 100
[2023-05-10 15:53] LABS: MANUAL DIFF FLAG NO
[2023-05-10 15:56] LABS: Basophils Percent Auto 0.7 % (0-2); Eosinophils Absolute Auto 0.3 X10*3/uL (0.0-0.4); Eosinophils Percent Auto 5.5 % (0-4); Hematocrit 34.6 % (37.0-47.0); Hemoglobin 11.3 g/dl (12.0-16.0); Imm Gran Abs Auto 0.02 X10*3/uL (0.00-0.03); Imm Gran Pct Auto 0.4 % (0.0-0.4); Lymphocytes Absolute Auto 1.5 X10*3/uL (1.2-4.9); Lymphocytes Percent Auto 26.1 % (20-40); Mean Corpuscular HGB Conc 32.7 g/dl (31.0-35.0); Mean Corpuscular Hemoglobin 28.9 pg (27.0-33.0); Mean Corpuscular Volume 88.5 fL (80.0-98.0); Mean Platelet Volume 10.5 fL (9.4-12.3); Monocytes Absolute Auto 0.5 X10*3/uL (0.1-1.2); Monocytes Percent Auto 9.2 % (2-11); Neutrophils Absolute Auto 3.3 x10*3/uL (2.0-8.3); Neutrophils Percent Auto 58.1 % (45-73); Platelet Count 238 X10*3/uL (160-400); Red Blood Count 3.91 X10*6/uL (4.20-5.50); Red Cell Distribution Width 14.1 % (11.0-16.0); White Blood Count 5.6 X10*3/uL (4.8-10.8)
[2023-05-10 16:29] LABS: Alanine Aminotransferase 10 U/L (0-31); Albumin Level 3.8 g/dL (3.5-5.0); Alkaline Phosphatase 54 U/L (39-117); Anion Gap 10 (12-20); Aspartate Amino Transferase 14 U/L (5-31); Bilirubin Total 0.4 mg/dL (0.0-1.0); Blood Urea Nitrogen 13 mg/dL (9-16); Calcium 8.1 mg/dL (8.4-10.2); Carbon Dioxide 21 mmol/L (22-29); Chloride 111 mmol/L (96-108); Creatinine Clr Calc Pharmacy 95.2; Estimated Glomerular Filt Rate > 60; Glucose Random 91 mg/dL (60-115); HCG Quantitative < 2 mIU/mL; Potassium 3.7 mmol/L (3.3-5.1); Sodium 138 mmol/L (135-145); Total Protein 6.8 g/dL (6.5-8.0)
--- NOTE | 2023-05-10 16:49 | PC.NURSE ---
pt requesting to leave after CT scan and get called with results. pt sts she gets anxious in hospitals and hasn't eaten all day.
[2023-05-10] MEDS: iohexoL 350 MG/ML 100 ML INFUS..BTL 85 ML IV (17:11)
== END 2023-05-10 17:55 | disposition left against medical advice (07) ==
PROVIDERS: Nurse Practitioner Family; Emergency Provider Student in an Organized Health Care Education/Training Program; PCP Internal Medicine
DX: S16.1XXA Strain of muscle, fascia and tendon at neck level, initial encounter (principal); M54.50 Low back pain, unspecified; R51.9 Headache, unspecified; M54.6 Pain in thoracic spine; R10.2 Pelvic and perineal pain; X58.XXXA Exposure to other specified factors, initial encounter; Y93.9 Activity, unspecified; Y92.9 Unspecified place or not applicable; Y99.9 Unspecified external cause status; Z79.899 Other long term (current) drug therapy
CPT/HCPCS: 36415; 70450; 71260; 72100; 72125; 74177; 80053; 84702; 85025; 99284; 99285; J1885; Q9967

== ENCOUNTER 2023-05-11 14:55 | Outpatient (AMB) | payer OTHER, SELFPAY ==
[2023-05-11 15:17] VITALS: BP 116/70; PULSE 85; TEMP 36.7; O2SAT 98; BMI 27.8
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
== END 2023-05-11 16:21 | disposition home or self-care (01) ==
PROVIDERS: PCP Internal Medicine; Visit Provider Physician Assistant
DX: M54.6 Pain in thoracic spine (principal); M54.2 Cervicalgia; R10.2 Pelvic and perineal pain
CPT/HCPCS: 99213

== ENCOUNTER 2023-05-13 10:31 | Outpatient (AMB) | payer OTHER, SELFPAY ==
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
[2023-05-13 10:36] VITALS: BP 110/64; PULSE 80; O2SAT 97; BMI 27.2
== END 2023-05-13 12:06 | disposition home or self-care (01) ==
PROVIDERS: PCP Internal Medicine; Visit Provider Internal Medicine
DX: S13.4XXA Sprain of ligaments of cervical spine, initial encounter (principal); M54.50 Low back pain, unspecified; Z87.828 Personal history of other (healed) physical injury and trauma
CPT/HCPCS: 99213

== ENCOUNTER 2023-05-14 12:01 | Outpatient (AMB) | payer OTHER, SELFPAY ==
--- NOTE | 2023-05-14 12:10 | MHC.OFFVIS ---
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 The pathology showed the following: Endometrium, curettage: Early secretory endometrium with stromal breakdown; negative for atypia, hyperplasia or malignancy. The following workup was done for AUB: H&H= 12.5/39.3 TSH, GC and chlamydia were negative. Co testing was done was negative. Last Mammogram was done in 02/11 was BI-RADS 1 Pelvic ultrasound showed the following: The uterus is retroverted, retroflexed, heterogeneous and measures 9.5 x 4.9 x 6.9 cm, volume 168.18 mL. There is a 0.9 x 1.0 x 1.1 cm echogenic mass at the junction of the uterus and endometrium, previously measured 0.6 x 0.9 x 0.6 cm. Differential considerations include submucosal fibroid and less likely polyp. Endometrial thickness is 0.4 cm. Right ovary measures 2.8 x 1.2 x 1.0 cm, volume 1.8 mL, and was seen only on transvaginal ultrasound. Right ovary is grossly unremarkable. Left ovary measures 2.9 x 1.6 x 2.2 cm, volume 5.3 mL. Left ovarian 1.9 x 1.2 x 1.8 cm simple cyst is likely physiologic. There is no indication at this time for further followup. There is no significant free fluid. Prominent vasculature in the bilateral adnexal regions raises the possibility of pelvic congestion syndrome. [facility] Medical History Borderline high cholesterol IBS (irritable bowel syndrome) Endometrial polyp Migraine without aura Anemia Hx of breast lump Hx of anxiety disorder Hx of seasonal allergies Hx of migraine headaches Hx of gastroesophageal reflux (GERD) Surgical History History of lumpectomy of right breast Hx of tubal ligation History of surgical removal of ganglion cyst Family History Father Hx of anxiety disorder Hx of human immunodeficiency virus I infection Mother Diabetes mellitus Hypertension Maternal Grandfather Diabetes mellitus Hypertension CVD (cardiovascular disease) Paternal Grandmother Hx of glaucoma Hx of acute arthritis Paternal Grandfather Myocardial infarction Social History Housing: Apartment Alcohol intake: current Alcohol intake frequency: a few times a week Patient Tobacco Use Status: Never used Tobacco e-Cigarette/Vaping Use: Never Used Second Hand Smoke Exposure: No Current occupational status: employed Sexual orientation: Straight/Heterosexual Gender identity: Female Cognitive needs: No Hearing needs: No Vision needs: Yes Female Reproductive History Menstrual Age of Menarche: 13 Review of Systems Const All systems reviewed & are unremarkable except as noted in HPI and below Reports as per HPI and Reports no additional complaints GI Reports no additional complaints Reports no additional complaints Physical Exam Vital Signs: Last Vital Signs BP 114/66 05/14/23 12:13 BMI result Body Mass Index 27.0 Assessment & Plan Assessment & Plan (1) Abnormal ultrasound of endometrium: Comment: Submucosal myoma versus polyp Code(s): R93.5 - Abnormal findings on diagnostic imaging of other abdominal regions, including retroperitoneum Plan: Discussed with the patient the results of the work up done and options of treatment including Lysteda, control pills, Mirena IUD, endometrial ablation and hysterectomy. All pros, cons, risks and benefits if each option was discussed with the patient and the patient decided to go ahead with Mirena IUD so a more detailed discussion about it was conducted including mechanism of action, risks (uterine perforation, infection, injury to bladder, bowel, displacement, and others) benefits (hypo menorrhea, amenorrhea, ...). GC/CT were taken and the patient was instructed to The patient was instructed to schedule Mirena IUD insertion on day 1-5 of next cycle . Coding Level of Care Code Est Pt Level 3 (88659) Diagnoses Abnormal ultrasound of endometrium R93.5
[2023-05-14 12:13] VITALS: BP 114/66; BMI 27.0
== END 2023-05-14 12:39 | disposition home or self-care (01) ==
PROVIDERS: PCP Internal Medicine; Visit Provider Obstetrics & Gynecology
DX: R93.5 Abnormal findings on diagnostic imaging of other abdominal regions, including retroperitoneum (principal)
CPT/HCPCS: 99213

== ENCOUNTER → 2023-05-14 12:01 | Outpatient (BNVA) | payer OTHER, SELFPAY | PROVIDERS: PCP Internal Medicine; Visit Provider Obstetrics & Gynecology ==

== ENCOUNTER 2023-06-11 11:10 | Outpatient (REF) | payer OTHER, SELFPAY ==
[2023-06-11 16:51] LABS: CT PCR NOT DETECTED (Not Detect.); NG PCR NOT DETECTED (Not Detect.)
[2023-06-12 11:14] LABS: BV Int Neg Control Negative (Negative); BV Int Pos Control Positive (Positive)
== END 2023-06-11 11:11 | disposition home or self-care (01) ==
LOC: HO.LNP 11:10
PROVIDERS: PCP Internal Medicine; Visit Provider Obstetrics & Gynecology
DX: N76.0 Acute vaginitis (principal); B96.89 Other specified bacterial agents as the cause of diseases classified elsewhere
CPT/HCPCS: 0353U; 87480; 87510; 87660

== ENCOUNTER 2023-06-11 11:10 | Outpatient (AMB) | payer OTHER, SELFPAY ==
--- NOTE | 2023-06-11 11:17 | MHC.OFFVIS ---
Intake Vital Signs 06/11/23 11:21 Height 5 ft 2 in Weight 147 lb 11.355 oz BMI 27.0 BP 116/70 Intake Visit Reasons: ? 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 Information Interpreted: non-clinical & clinical Elevator Operator Service: Elevator Operator Service Present (Sylvia PRESCOTT) Accompanied by: Self / Same As Patient Allergies diphenhydramine [From Benadryl] Adverse Reaction (Verified 06/11/23 11:24) Anxiety, legs getting numb HPI HPI Comments History of Present Illness Details The patient is presenting complaining of vaginal discharge associated with foul odor, no other associated symptoms, vaginal itching or any other complaint PFSH Medical History Borderline high cholesterol IBS (irritable bowel syndrome) Endometrial polyp Migraine without aura Anemia Hx of breast lump Hx of anxiety disorder Hx of seasonal allergies Hx of migraine headaches Hx of gastroesophageal reflux (GERD) Surgical History History of lumpectomy of right breast Hx of tubal ligation History of surgical removal of ganglion cyst Family History Father Hx of anxiety disorder Hx of human immunodeficiency virus I infection Mother Diabetes mellitus Hypertension Maternal Grandfather Diabetes mellitus Hypertension CVD (cardiovascular disease) Paternal Grandmother Hx of glaucoma Hx of acute arthritis Paternal Grandfather Myocardial infarction Social History Housing: Apartment Alcohol intake: current Alcohol intake frequency: a few times a week Patient Tobacco Use Status: Never used Tobacco e-Cigarette/Vaping Use: Never Used Second Hand Smoke Exposure: No Current occupational status: employed Sexual orientation: Straight/Heterosexual Gender identity: Female Cognitive needs: No Hearing needs: No Vision needs: Yes Female Reproductive History Menstrual Age of Menarche: 13 Review of Systems Const All systems reviewed & are unremarkable except as noted in HPI and below Physical Exam General: Yes no CVA tenderness External Female Exam: normal external appearance and normal appearance of the urethra Speculum Exam - Vagina: normal appearance of the vagina, normal palpation, no lesions and no masses Speculum Exam - Cervix: normal appearance of the cervix, normal palpation, no lesions, no masses and nontender Bimanual exam- vagina & uterus: normal bimanual exam, normal palpation, uterine size normal, normal palpation, uterine shape normal, No Cervical tenderness present and non-tender Bimanual Exam- Adnexa, other: normal adnexae Back/Spine/Pelvis Back: no CVA tenderness Assessment & Plan Assessment & Plan (1) Bacterial vaginosis: Code(s): N76.0 - Acute vaginitis; B96.89 - Other specified bacterial agents as the cause of diseases classified elsewhere Plan: GC and chlamydia cultures with BV panel taken. Per CDC recommendation, will screen for STI, HepBs Ag, HIV, RPR, Hep C Ab ordered. Will treat with Flagyl 500 mg p.o. b.i.d. x 7 days, Instructions given to the patient to refrain from sexual activity or to use condoms consistently and correctly during the BV treatment regimen, not to douch, it might increase the risk for relapse, and to call if symptoms persist or recur. Orders: Orders Hepatitis C Antibody Today Z20.2 - Contact with and (suspected) exposure to infections with a predominantly sexual mode of transmission Hepatitis B Surface Antigen Today Z20.2 - Contact with and (suspected) exposure to infections with a predominantly sexual mode of transmission HIV Ab/Ag Today Z20.2 - Contact with and (suspected) exposure to infections with a predominantly sexual mode of transmission Syphilis Screen Today Z20.2 - Contact with and (suspected) exposure to infections with a predominantly sexual mode of transmission Medications: New metronidazole 500 mg PO BID 14 tabs 0RF 7 days Coding Level of Care Code Est Pt Level 3 (83600) Diagnoses Bacterial vaginosis N76.0; B96.89
[2023-06-11 11:21] VITALS: BP 116/70; BMI 27.0
== END 2023-06-11 13:01 | disposition home or self-care (01) ==
PROVIDERS: PCP Internal Medicine; Visit Provider Obstetrics & Gynecology
DX: N76.0 Acute vaginitis (principal); B96.89 Other specified bacterial agents as the cause of diseases classified elsewhere
CPT/HCPCS: 99213

== ENCOUNTER 2023-08-21 12:32 | Outpatient (AMB) | payer OTHER, SELFPAY ==
--- NOTE | 2023-08-21 12:48 | MHC.OFFVIS ---
Intake Vital Signs 08/21/23 12:57 Height 5 ft 2 in Weight 147 lb 11.355 oz BMI 27.0 BP 118/66 Intake Visit Reasons: IUD Insertion/OK per David Advertising Sales Associate Required: No Information Interpreted: non-clinical & clinical Vessel Traffic Officer: Vessel Traffic Officer Present (Sylvia Hassan GENIE) Accompanied by: Self / Same As Patient Allergies diphenhydramine [From Benadryl] Adverse Reaction (Verified 08/21/23 12:58) Anxiety, legs getting numb Is last menstrual period known: Yes Last menstrual period: 08/20/23 HPI HPI Comments History of Present Illness Details Patient is here for an Mirena IUD insertion for HMB. She currently started her menstrual cycle yesterday. Additionally has a history of a tubal ligation. [facility] Medical History Borderline high cholesterol IBS (irritable bowel syndrome) Endometrial polyp Migraine without aura Anemia Hx of breast lump Hx of anxiety disorder Hx of seasonal allergies Hx of migraine headaches Hx of gastroesophageal reflux (GERD) Surgical History History of lumpectomy of right breast Hx of tubal ligation History of surgical removal of ganglion cyst Family History Father Hx of anxiety disorder Hx of human immunodeficiency virus I infection Mother Diabetes mellitus Hypertension Maternal Grandfather Diabetes mellitus Hypertension CVD (cardiovascular disease) Paternal Grandmother Hx of glaucoma Hx of acute arthritis Paternal Grandfather Myocardial infarction Social History Housing: Apartment Alcohol intake: current Alcohol intake frequency: a few times a week Patient Tobacco Use Status: Never used Tobacco e-Cigarette/Vaping Use: Never Used Second Hand Smoke Exposure: No Current occupational status: employed Sexual orientation: Straight/Heterosexual Gender identity: Female Cognitive needs: No Hearing needs: No Vision needs: Yes Female Reproductive History Menstrual Age of Menarche: 13 Date of last menstrual period: 08/20/23 control method: progestin IUCD (Mirena 08/21/23) Physical Exam Vital Signs: Last Vital Signs BP 118/66 08/21/23 12:57 BMI result Body Mass Index 27.0 Office Procedures Contraception Insert/Removal Details Details: The patient is here today for a Mirena IUD insertion. She was counseled on the side effects including: menstrual cycle changes, pain, infection, bleeding, or expulsion. Risks of injury to the vagina, cervix, uterus, tubes, ovaries, bowel, bladder, and any adjacent tissue, resulting in nerve damage, scarring, and pain. Risks complications for the procedure that may require other test including ultrasounds, Xray, CT or MRI scan, surgery, anesthesia, blood transfusion. A urine test was completed and was negative. She was consented for the IUD insertion and has signed the consent form. All questions were answered. IUD Insertion: The patient was placed in the dorsal lithotomy position and a sterile speculum was inserted. The procedure was completed under aseptic technique. The cervix was cleansed with a Betadine solution x 3 swabs. A single toothed tenaculum was applied to the cervix for stabilization, and the uterus was sounded to 7.5cm. The device was inserted and released with a gentle motion. Bleeding from the tenaculum sites and the procedure were minimal. The strings were trimmed to 3cm. All of the equipment was removed and the bimanual was normal, no tip was palpable at the cervical os. The patient tolerated the procedure well and left the office in good condition. Post IUD Insertion Care: There may be some post insertion bleeding for several days that is usually light and can turn to a light brown or pink in color. Mild cramping may occur. Nothing in the vagina including: tampons, douching or intimacy for several days. You may take an over the counter mild analgesia like Tylenol or Advil (if no allergies), per the manufacturers recommendations on dosing and frequency. Follow the directions completely. Call the office if any: fever (over 100.4), flu like symptoms, abdominal pain, worsening cramping not resolved with over the counter medications, foul smelling vaginal odor, signs of infected appearing discharge, or heavy bleeding. Use a condom for a back up method if indicated for 7 days. Always use a condom for STI prevention; IUD's are not protective against STD's. Return to the office in 4-6 weeks for IUD recheck. This note is constructed using voice recognition software. While every effort has been made to ensure accuracy, livestock nutrition territory manager errors may have been included. Assessment & Plan Assessment & Plan (1) Encounter for insertion of mirena IUD: Code(s): Z30.430 - Encounter for insertion of intrauterine contraceptive device Plan See procedure notes. Additionally discussed retroverted position of her uterus and she was interested in the reason for discomfort with intimacy. Encouraged her to try different positions to alleviate discomfort. Coding Level of Care Code Procedure Only Diagnoses Encounter for insertion of mirena IUD Z30.333
[2023-08-21 12:57] VITALS: BP 118/66; BMI 27.0
== END 2023-08-21 14:32 | disposition home or self-care (01) ==
LOC: HO.HWS 12:32
PROVIDERS: PCP Internal Medicine; Visit Provider Advanced Practice Midwife
DX: Z30.430 Encounter for insertion of intrauterine contraceptive device (principal); Z32.02 Encounter for pregnancy test, result negative
CPT/HCPCS: 58300

== ENCOUNTER → 2023-08-21 12:32 | Outpatient (BNVA) | payer OTHER, SELFPAY | PROVIDERS: PCP Internal Medicine; Visit Provider Advanced Practice Midwife | DX: Z30.430 Encounter for insertion of intrauterine contraceptive device (principal) | CPT/HCPCS: 58300; 81025; J7298 ==

== ENCOUNTER 2023-09-08 12:41 | Outpatient (AMB) | payer OTHER, SELFPAY ==
--- NOTE | 2023-09-08 12:44 | MHC.OFFVIS ---
Intake Vital Signs 09/08/23 12:47 Height 5 ft 2 in Weight 152 lb BMI 27.8 Intake Visit Reasons: cramping pain Intake Note: c/o of cramping x 1 week after IUD insertion Brim Curler Required: No Information Interpreted: non-clinical & clinical National Accounts Sales: National Accounts Sales Present (Sylvia PRESCOTT) Accompanied by: Self / Same As Patient Allergies diphenhydramine [From Benadryl] Adverse Reaction (Verified 09/08/23 12:49) Anxiety, legs getting numb HPI HPI Comments History of Present Illness Details Patient is here with complaints of pelvic pain change she reports the onset about a week to a week and a half after her IUD was inserted on 08/21/2023. She reports most daily light spotting bleeding dark brown in color. She denies any fever, flu-like symptoms, chills, nausea, vomiting, diarrhea, or constipation. She denies any urinary symptoms. [facility] Medical History Borderline high cholesterol IBS (irritable bowel syndrome) Endometrial polyp Migraine without aura Anemia Hx of breast lump Hx of anxiety disorder Hx of seasonal allergies Hx of migraine headaches Hx of gastroesophageal reflux (GERD) Surgical History History of lumpectomy of right breast Hx of tubal ligation History of surgical removal of ganglion cyst Family History Father Hx of anxiety disorder Hx of human immunodeficiency virus I infection Mother Diabetes mellitus Hypertension Maternal Grandfather Diabetes mellitus Hypertension CVD (cardiovascular disease) Paternal Grandmother Hx of glaucoma Hx of acute arthritis Paternal Grandfather Myocardial infarction Social History Housing: Apartment Alcohol intake: current Alcohol intake frequency: a few times a week Patient Tobacco Use Status: Never used Tobacco e-Cigarette/Vaping Use: Never Used Second Hand Smoke Exposure: No Current occupational status: employed Sexual orientation: Straight/Heterosexual Gender identity: Female Cognitive needs: No Hearing needs: No Vision needs: Yes Female Reproductive History Menstrual Age of Menarche: 13 Review of Systems Const All systems reviewed & are unremarkable except as noted in HPI and below Physical Exam Vital Signs: BMI result Body Mass Index 27.8 Const General: cooperative, healthy appearing and no acute distress Orientation/consciousness: patient oriented x3 GI Inspection: Yes normal to inspection Palpation (GI): Soft to palpation and Other GI palpation findings present (Nontender) Rectal Exam - Female: visual inspection normal General: Yes bladder normal to palpation External Female Exam: normal appearance of the urethra Speculum Exam - Vagina: normal appearance of the vagina, normal palpation, normal vaginal discharge and vaginal bleeding (Small amount dark brown) Speculum Exam - Cervix: normal appearance of the cervix, normal palpation and Other cervical findings present (IUD strings present) Bimanual exam- vagina & uterus: normal bimanual exam, normal palpation, uterine size normal, bladder normal to palpation, normal palpation, uterine shape normal and Uterine tenderness Bimanual Exam- Adnexa, other: normal adnexae OB/external & speculum: vaginal bleeding (Small amount dark brown) Neuro General: patient oriented x3 Office Meds ceftriaxone 500 mg solution for injection Performing Provider: Precious Olivera CNM Performing Location: [facility] [place] [facility] Administered by: Alicja Gallegos LPN on 09/08/23 14:50 Dose Route Admin Location Dispensed Lot Number Expiration Date [facility] Shop Coordinator 500 mg IM rt. gluteus 500 mg [id number] 12/21/24 7403-1044-12 [facility] Results AMB Test Urine AMB Test Urine Negative Last Edit by GENIE Schaeffer on 09/08/23 13:24 AMB Urinalysis, Automated UA Leukoctes 0 Deshawn/uL Last Edit by GENIE Schaeffer on 09/08/23 13:24 UA Nitrite Negative Last Edit by GENIE Schaeffer on 09/08/23 13:24 UA Urobilinogen 0 mg/dL Last Edit by GENIE Schaeffer on 09/08/23 13:24 UA Protein 0 mg/dL Last Edit by GENIE Schaeffer on 09/08/23 13:24 UA pH 8.0 Last Edit by GENIE Schaeffer on 09/08/23 13:24 UA Blood 0 Dawood/uL Last Edit by GENIE Schaeffer on 09/08/23 13:24 UA Specific [place] 1.015 Last Edit by GENIE Schaeffer on 09/08/23 13:24 UA Ketone Negative Last Edit by GENIE Schaeffer on 09/08/23 13:24 UA Bilirubin 0 mg/dL Last Edit by GENIE Schaeffer on 09/08/23 13:24 UA Glucose 0 mg/dL Last Edit by GENIE Schaeffer on 09/08/23 13:24 Results Reviewed Results Reviewed: Laboratory Last Values Urine pH (Auto) 8.0 09/08/23 13:05 Specific [place] (Auto) 1.015 09/08/23 13:05 Urine Protein (Auto) 0 mg/dL 09/08/23 13:05 Glucose (UA)(Auto) 0 mg/dL 09/08/23 13:05 Urine Ketones (Auto) Negative 09/08/23 13:05 Urine Blood (Auto) 0 Dawood/uL 09/08/23 13:05 Urine Nitrite (Auto) Negative 09/08/23 13:05 Urine Bilirubin (Auto) 0 mg/dL 09/08/23 13:05 Urine Urobilinogen (Auto) 0 mg/dL 09/08/23 13:05 Leukocyte Esterase (Auto) 0 Deshawn/uL 09/08/23 13:05 Tst Clinic Negative 09/08/23 13:05 Assessment & Plan Assessment & Plan (1) Pelvic pain: Code(s): R10.2 - Pelvic and perineal pain (2) IUD surveillance: Code(s): Z30.431 - Encounter for routine checking of intrauterine contraceptive device (3) Pelvic inflammatory disease (PID): Code(s): N73.9 - Female pelvic inflammatory disease, unspecified Plan Discussed: Plan of care/treatment. Cultures obtained. CBC. Ultrasound findings including possible low-lying IUD discussed keeping the IUD in place until we reassess in 2 days, then in 2 weeks. If replacement needs to be done at that point will consider it. IUD currently is used for cycle control not contraception. Treatment protocol for Pelvic Inflammatory Disease (PID) per CC guidelines including; Ceftriaxone IM in office and additional oral meds: Doxycycline and Flagyl for two week. Or alternative if allergies. Advised to call if any worsening symptoms, increased pain, fever over 100.4, flu like symptoms, chills, lightheadedness, dizziness, report immediately to the ED. Medication instructions reviewed, take as directed and complete all medications. Flagyl med use and warnings provided. Pelvic Rest: nothing in the vagina, no intimacy. You may take OTC mild analgesic as directed for discomforts. Pelvic recheck appointment 2-3 days. All questions and concerns answered to the best of my ability. She is agreeable to the plan of care. This note is constructed using voice recognition software. While every effort has been made to ensure accuracy, first calender worker errors may have been included. Orders: Orders US pelvic and transvaginal Today R10.2 - Pelvic and perineal pain, Z30.431 - Encounter for routine checking of intrauterine contraceptive device Bacterial Vaginosis Panel Today N73.9 - Female pelvic inflammatory disease, unspecified, R10.2 - Pelvic and perineal pain CT NG by PCR Today N73.9 - Female pelvic inflammatory disease, unspecified, R10.2 - Pelvic and perineal pain Complete Blood Count Auto Diff Today R10.2 - Pelvic and perineal pain AMB HCG Urine Test Today R10.2 - Pelvic and perineal pain AMB Urinalysis Automated Today R10.2 - Pelvic and perineal pain AMB Ceftriaxone Injection Today N73.9 - Female pelvic inflammatory disease, unspecified Medications: New metronidazole 500 mg PO BID 28 tabs 0RF 14 days doxycycline hyclate 100 mg PO BID 28 caps 0RF 14 days Coding Level of Care Code Est Pt Level 4 (94750) Diagnoses Pelvic pain R10.2 IUD surveillance Z30.431 Pelvic inflammatory disease (PID) N73.9
[2023-09-08 12:47] VITALS: BMI 27.8
== END 2023-09-08 13:20 | disposition home or self-care (01) ==
LOC: HO.HWS 12:41
PROVIDERS: PCP Internal Medicine; Visit Provider Advanced Practice Midwife
DX: R10.2 Pelvic and perineal pain (principal); Z30.431 Encounter for routine checking of intrauterine contraceptive device; N73.9 Female pelvic inflammatory disease, unspecified
CPT/HCPCS: 99214

== ENCOUNTER 2023-09-08 12:41 | Outpatient (REF) | payer OTHER, SELFPAY | END 2023-09-08 12:42 | disposition home or self-care (01) | LOC: HO.LAB 12:41 | PROVIDERS: PCP Internal Medicine; Visit Provider Advanced Practice Midwife | DX: Z30.431 Encounter for routine checking of intrauterine contraceptive device (principal); R10.2 Pelvic and perineal pain; N73.9 Female pelvic inflammatory disease, unspecified | CPT/HCPCS: 81003; 81025; 96372; J0696 ==

== ENCOUNTER 2023-09-08 13:05 | Outpatient (REF) | payer OTHER, SELFPAY ==
[2023-09-08 18:28] LABS: CT PCR NOT DETECTED (Not Detect.); NG PCR NOT DETECTED (Not Detect.)
[2023-09-09 13:23] LABS: BV Int Neg Control Negative (Negative); BV Int Pos Control Positive (Positive)
== END 2023-09-08 13:06 | disposition home or self-care (01) ==
LOC: HO.LNP 13:05
PROVIDERS: Visit Provider Advanced Practice Midwife
DX: R10.2 Pelvic and perineal pain (principal); N73.9 Female pelvic inflammatory disease, unspecified
CPT/HCPCS: 0353U; 87480; 87510; 87660

== ENCOUNTER 2023-09-08 13:13 | Outpatient (REF) | payer OTHER, SELFPAY ==
--- NOTE | ~2023-09-08 | US_ITS ---
EXAMINATION: US PELVIS CLINICAL INFORMATION: Pelvic and perineal pain. IUD placed 08/21/2023 LMP 08/20/2023 COMPARISON: Pelvic ultrasound sound 03/13/2023, CT scan abdomen and pelvis 05/10/2023 TECHNIQUE: Ultrasound of the pelvis is performed using both transabdominal and transvaginal transducers along with Doppler. Transvaginal imaging is performed due to inadequate visualization transabdominally. FINDINGS: Uterus: The uterus is retroverted and measures 8.7 x 4.2 x 5.2 cm. 1.3 x 1.1 x 1.2 cm submucosal fibroid is seen at the junction of the fundus and body of the uterus. The endometrial thickness is 0.2 cm The IUD appears low, 1.2 cm from the fundus,? Unable to advance IUD due to submucosal fibroid Adnexa: Both ovaries are visualized. There is normal color flow to the adnexa. There is no ovarian torsion. Right ovary measures 3.4 x 1.0 x 1.7 cm. Volume 3.0 mL. The right ovary is normal in appearance. Left ovary measures 4.6 x 1.5 x 2.4 cm. Volume 8.7 mL. There is question of a 2.6 x 2.0 x 2.4 cm multicystic versus septated cyst. There is a small amount of free fluid within the cul-de-sac. US/US pelvic and transvaginal IMPRESSION: 1. The IUD appears low, 1.2 cm from the fundus,? Unable to advance IUD due to submucosal fibroid. 2. Retroverted uterus with 1.3 cm submucosal fibroid at the junction of the body of the uterus. 3. Normal right ovary. 4. 2.6 cm multicystic versus septated cyst in the left ovary is of doubtful clinical significance.
== END 2023-09-08 13:14 | disposition home or self-care (01) ==
LOC: HO.US 13:13
PROVIDERS: Visit Provider Advanced Practice Midwife
DX: Z30.431 Encounter for routine checking of intrauterine contraceptive device (principal); R10.2 Pelvic and perineal pain
CPT/HCPCS: 76830; 76856

== ENCOUNTER 2023-09-08 13:44 | Outpatient (REF) | payer OTHER, SELFPAY ==
[2023-09-08 13:58] LABS: MANUAL DIFF FLAG NO
[2023-09-08 14:16] LABS: Basophils Percent Auto 0.5 % (0-2); Eosinophils Absolute Auto 0.3 X10*3/uL (0.0-0.4); Eosinophils Percent Auto 4.4 % (0-4); Hematocrit 38.1 % (37.0-47.0); Hemoglobin 12.2 g/dl (12.0-16.0); Imm Gran Abs Auto 0.02 X10*3/uL (0.00-0.03); Imm Gran Pct Auto 0.3 % (0.0-0.4); Lymphocytes Absolute Auto 1.8 X10*3/uL (1.2-4.9); Lymphocytes Percent Auto 29.9 % (20-40); Mean Corpuscular Hemoglobin 28.1 pg (27.0-33.0); Mean Corpuscular Volume 87.8 fL (80.0-98.0); Mean Platelet Volume 10.7 fL (9.4-12.3); Monocytes Absolute Auto 0.5 X10*3/uL (0.1-1.2); Monocytes Percent Auto 8.5 % (2-11); Neutrophils Absolute Auto 3.3 x10*3/uL (2.0-8.3); Neutrophils Percent Auto 56.4 % (45-73); Platelet Count 304 X10*3/uL (160-400); Red Blood Count 4.34 X10*6/uL (4.20-5.50); Red Cell Distribution Width 13.2 % (11.0-16.0); White Blood Count 5.9 X10*3/uL (4.8-10.8)
== END 2023-09-08 13:45 | disposition home or self-care (01) ==
LOC: HO.LAB 13:44
PROVIDERS: PCP Internal Medicine; Visit Provider Advanced Practice Midwife
DX: R10.2 Pelvic and perineal pain (principal)
CPT/HCPCS: 85025

== ENCOUNTER 2023-09-10 11:46 | Outpatient (AMB) | payer OTHER, SELFPAY ==
[2023-09-10 11:48] VITALS: BP 100/60
--- NOTE | 2023-09-10 11:48 | MHC.OFFVIS ---
Intake Vital Signs 09/10/23 11:48 BP 100/60 Intake Visit Reasons: Pelvic re check Blueprint Reader: Blueprint Reader Present (Claudia) Allergies diphenhydramine [From Benadryl] Adverse Reaction (Verified 09/10/23 11:51) Anxiety, legs getting numb HPI HPI Comments History of Present Illness Details Patient is here for a pelvic recheck after initial treatment this week for PID with ceftriaxone. It is feeling well and the pelvic pain is resolved. She is continuing to take her antibiotics. And she is strongly considering removing the IUD. [facility] Medical History Borderline high cholesterol IBS (irritable bowel syndrome) Endometrial polyp Migraine without aura Anemia Hx of breast lump Hx of anxiety disorder Hx of seasonal allergies Hx of migraine headaches Hx of gastroesophageal reflux (GERD) Surgical History History of lumpectomy of right breast Hx of tubal ligation History of surgical removal of ganglion cyst Family History Father Hx of anxiety disorder Hx of human immunodeficiency virus I infection Mother Diabetes mellitus Hypertension Maternal Grandfather Diabetes mellitus Hypertension CVD (cardiovascular disease) Paternal Grandmother Hx of glaucoma Hx of acute arthritis Paternal Grandfather Myocardial infarction Social History Housing: Apartment Alcohol intake: current Alcohol intake frequency: a few times a week Patient Tobacco Use Status: Never used Tobacco e-Cigarette/Vaping Use: Never Used Second Hand Smoke Exposure: No Current occupational status: employed Sexual orientation: Straight/Heterosexual Gender identity: Female Cognitive needs: No Hearing needs: No Vision needs: Yes Female Reproductive History Menstrual Age of Menarche: 13 Review of Systems Const All systems reviewed & are unremarkable except as noted in HPI and below Physical Exam Vital Signs: Last Vital Signs BP 100/60 09/10/23 11:48 Const General: cooperative, healthy appearing and no acute distress Orientation/consciousness: patient oriented x3 GI Inspection: Yes normal to inspection Palpation (GI): Soft to palpation and Other GI palpation findings present (Nontender) Rectal Exam - Female: visual inspection normal General: Yes bladder normal to palpation External Female Exam: normal appearance of the urethra Speculum Exam - Vagina: normal appearance of the vagina, normal palpation, normal vaginal discharge and vaginal bleeding (Small amount of dark red/brown blood) Speculum Exam - Cervix: normal appearance of the cervix, normal palpation and Other cervical findings present (IUD strings present) Bimanual exam- vagina & uterus: normal bimanual exam, normal palpation, uterine size normal, bladder normal to palpation, normal palpation, uterine shape normal and non-tender Bimanual Exam- Adnexa, other: normal adnexae OB/external & speculum: vaginal bleeding (Small amount of dark red/brown blood) Neuro General: patient oriented x3 Assessment & Plan Assessment & Plan (1) PID (pelvic inflammatory disease) contact, treated: Code(s): Z20.2 - Contact with and (suspected) exposure to infections with a predominantly sexual mode of transmission Plan Discussed: The risks benefits of keeping the IUD in at this point. Anticipatory guidance for improvement of reduction of menstrual bleeding and cycle control. The goal of very light to no periods. If there was an indication to remove the IUD at this point we would consider it otherwise since she is doing overall really well I have encouraged her to keep it in at least for 2 more weeks unless there is any other changes, with the goal of seeing the benefits from the use of the IUD. All of her questions and concerns were addressed to the best of my ability and shared decision making. She is agreeable to the plan of care. Return to the office in a week and a half or p.r.n. plan discussion of the IUD removal at that point as she agrees to keep it in for now because of the benefits and the overall improvement. Coding Level of Care Code Est Pt Level 3 (04762) Diagnoses PID (pelvic inflammatory disease) contact, treated Z20.2
== END 2023-09-10 12:03 | disposition home or self-care (01) ==
PROVIDERS: PCP Internal Medicine; Visit Provider Advanced Practice Midwife
DX: Z20.2 Contact with and (suspected) exposure to infections with a predominantly sexual mode of transmission (principal)
CPT/HCPCS: 99213

== ENCOUNTER → 2023-09-10 11:46 | Outpatient (BNVA) | payer OTHER, SELFPAY | PROVIDERS: PCP Internal Medicine; Visit Provider Advanced Practice Midwife ==

== ENCOUNTER 2023-09-23 11:28 | Outpatient (AMB) | payer OTHER, SELFPAY ==
--- NOTE | 2023-09-23 11:30 | MHC.OFFVIS ---
Intake Vital Signs 09/23/23 11:31 Height 5 ft 2 in Weight 152 lb BMI 27.8 BP 96/60 Intake Visit Reasons: pelvic recheck per David Chemistry Manager: Chemistry Manager Present (Claudia) Allergies diphenhydramine [From Benadryl] Adverse Reaction (Verified 09/10/23 11:51) Anxiety, legs getting numb HPI HPI Comments History of Present Illness Details Patient is here today for 2 week follow-up after treatment for PID. She reports she is starting to have pains in the lower pelvic area, and admit she never started her Flagyl or doxycycline because she saw her reports and they were all negative for cultures. She denies any fever flu-like symptoms or chills, admits to having a low dull headache not her typical migraine. She also reports intermittent bleeding seems to be increasing and request her IUD to be removed today. Previous ultrasound revealed a low lying position. [facility] Medical History Borderline high cholesterol IBS (irritable bowel syndrome) Endometrial polyp Migraine without aura Anemia Hx of breast lump Hx of anxiety disorder Hx of seasonal allergies Hx of migraine headaches Hx of gastroesophageal reflux (GERD) Surgical History History of lumpectomy of right breast Hx of tubal ligation History of surgical removal of ganglion cyst Family History Father Hx of anxiety disorder Hx of human immunodeficiency virus I infection Mother Diabetes mellitus Hypertension Maternal Grandfather Diabetes mellitus Hypertension CVD (cardiovascular disease) Paternal Grandmother Hx of glaucoma Hx of acute arthritis Paternal Grandfather Myocardial infarction Social History Housing: Apartment Alcohol intake: current Alcohol intake frequency: a few times a week Patient Tobacco Use Status: Never used Tobacco e-Cigarette/Vaping Use: Never Used Second Hand Smoke Exposure: No Current occupational status: employed Sexual orientation: Straight/Heterosexual Gender identity: Female Cognitive needs: No Hearing needs: No Vision needs: Yes Female Reproductive History Menstrual Age of Menarche: 13 Review of Systems Const All systems reviewed & are unremarkable except as noted in HPI and below Physical Exam Vital Signs: Last Vital Signs BP 96/60 09/23/23 11:31 BMI result Body Mass Index 27.8 Const General: cooperative, healthy appearing and no acute distress Orientation/consciousness: patient oriented x3 GI Inspection: Yes normal to inspection Palpation (GI): Soft to palpation and Other GI palpation findings present (Nontender) Rectal Exam - Female: visual inspection normal General: Yes bladder normal to palpation External Female Exam: normal appearance of the urethra Speculum Exam - Vagina: normal appearance of the vagina, normal palpation, normal vaginal discharge and vaginal bleeding Speculum Exam - Cervix: normal appearance of the cervix, normal palpation and Other cervical findings present (IUD strings present) Bimanual exam- vagina & uterus: normal bimanual exam, normal palpation, uterine size normal, bladder normal to palpation, normal palpation, uterine shape normal and Uterine tenderness Bimanual Exam- Adnexa, other: normal adnexae OB/external & speculum: vaginal bleeding Neuro General: patient oriented x3 Office Procedures Contraception Insert/Removal Details Details: IUD Removal Procedure: The patient was placed in the dorsal lithotomy position. A speculum was inserted vaginally and the cervix and strings were visualized at the os. A ring forcep was utilized, and the strings were grasped and gently tugged out, tip was close to the external os, removing the IUD device intact. Minimal bleeding was observed. All of the equipment was removed. The patient tolerated the procedure well and left the office in good condition. [address]4490 - Removal Office Meds ceftriaxone 500 mg solution for injection Performing Provider: Precious Olivera CNM Performing Location: [facility] Administered by: Julia Barron on 09/23/23 15:29 Dose Route Admin Location Dispensed Lot Number Expiration Date [facility] [place] [employer] 500 mg IM RGM 500 mg [id number] 08/23/25 4732-6794-42 HOSPIRA/PFIZER Results Reviewed Results Reviewed: [address] [address] Ultrasound Report Signed Patient: Mary Ann Serrano MR#: [id number] : 1975 Acct:[id number] Age/Sex: 48 / F ADM Date: 09/23/23 Loc: HO.US Attending Dr: Precious Olivera CNM Ordering Physician: Precious Olivera CNM Date of Service: 09/23/23 Procedure(s): US pelvic and transvaginal Accession Number(s): [id number] cc: Precious Olivera CNRonit~ EXAMINATION: US PELVIS CLINICAL INFORMATION: Pelvic inflammatory disease. COMPARISON: 09/08/2023 and 03/13/2023 TECHNIQUE: Ultrasound of the pelvis is performed using both transabdominal and transvaginal transducers along with Doppler. Transvaginal imaging is performed due to inadequate visualization transabdominally. FINDINGS: Uterus: The uterus is retroverted. Uterine echotexture is heterogeneous. The uterus measures 7.2 x 4.1 x 5.8 cm. Echogenic rounded lesion centered within the endometrium measures 1.0 x 1.3 x 1.4 cm with possible color Doppler flow. The endometrial stripe measures 4 mm in thickness. Adnexa: The left ovary measures 1.1 x 2.0 x 0.9 cm for a volume of 1.0 mL. The right ovary measures 2.4 x 1.8 x 1.4 cm for a volume of 3.2 mL. There is no pelvic ascites or fluid collection. US/US pelvic and transvaginal IMPRESSION: No significant interval change in submucosal fibroid measuring 1.0 x 1.3 x 1.4 cm. Dictated By: Delonte Ac MD Signed By: <Electronically signed by Delonte Ac MD in OV> 09/23/23 1441 DD/ 1430 TD/TT: Top Cutter: Assessment & Plan Assessment & Plan (1) Pelvic inflammatory disease (PID): Code(s): N73.9 - Female pelvic inflammatory disease, unspecified (2) Encounter for IUD removal: Code(s): Z30.432 - Encounter for removal of intrauterine contraceptive device Plan Discussed: Stat ultrasound now. Plan of care/treatment. BV panel obtained. Treatment protocol for Pelvic Inflammatory Disease (PID) per CC guidelines including; Ceftriaxone IM in office and additional oral meds: Doxycycline and Flagyl for two week. Or alternative if allergies. Advised to call if any worsening symptoms, increased pain, fever over 100.4, flu like symptoms, chills, lightheadedness, dizziness, report immediately to the ED. Medication instructions reviewed, take as directed and complete all medications was emphasize on importance to complete all meds, and if any vomiting to notify the office so that additional medications could be administered to help. Flagyl med use and warnings provided. Pelvic Rest: nothing in the vagina, no intimacy. You may take OTC mild analgesic as directed for discomforts. Pelvic recheck appointment 2-3 days. All questions and concerns answered to the best of my ability. She is agreeable to the plan of care. This note is constructed using voice recognition software. While every effort has been made to ensure accuracy, commissioned sales associate errors may have been included. Orders: Orders Bacterial Vaginosis Panel Today N73.9 - Female pelvic inflammatory disease, unspecified, N89.8 - Other specified noninflammatory disorders of vagina US pelvic and transvaginal Today N73.9 - Female pelvic inflammatory disease, unspecified, R10.2 - Pelvic and perineal pain AMB Ceftriaxone Injection Today N73.9 - Female pelvic inflammatory disease, unspecified Coding Level of Care Code Est Pt Level 4 (94237) Procedure Only Diagnoses Pelvic inflammatory disease (PID) N73.9 Encounter for IUD removal Z30.432 CPT Codes Details - Contraception: 43317 - Removal ([id number]) Comment PID diagnosis in additional IUD removal added modify
[2023-09-23 11:31] VITALS: BP 96/60; BMI 27.8
== END 2023-09-23 16:23 | disposition home or self-care (01) ==
LOC: HO.HWS 11:29
PROVIDERS: PCP Internal Medicine; Visit Provider Advanced Practice Midwife
DX: N73.9 Female pelvic inflammatory disease, unspecified (principal); Z30.432 Encounter for removal of intrauterine contraceptive device
CPT/HCPCS: 11982; 99214

== ENCOUNTER 2023-09-23 11:28 | Outpatient (REF) | payer OTHER, SELFPAY ==
[2023-09-24 14:07] LABS: BV Int Neg Control Negative (Negative); BV Int Pos Control Positive (Positive)
== END 2023-09-23 11:29 | disposition home or self-care (01) ==
LOC: HO.LAB 11:28
PROVIDERS: PCP Internal Medicine; Visit Provider Advanced Practice Midwife
DX: Z30.432 Encounter for removal of intrauterine contraceptive device (principal); N73.9 Female pelvic inflammatory disease, unspecified; N89.8 Other specified noninflammatory disorders of vagina
CPT/HCPCS: 11982; 87480; 87510; 87660; 96372; J0696

== ENCOUNTER 2023-09-23 13:21 | Outpatient (REF) | payer OTHER, SELFPAY ==
--- NOTE | ~2023-09-23 | US_ITS ---
EXAMINATION: US PELVIS CLINICAL INFORMATION: Pelvic inflammatory disease. COMPARISON: 09/08/2023 and 03/13/2023 TECHNIQUE: Ultrasound of the pelvis is performed using both transabdominal and transvaginal transducers along with Doppler. Transvaginal imaging is performed due to inadequate visualization transabdominally. FINDINGS: Uterus: The uterus is retroverted. Uterine echotexture is heterogeneous. The uterus measures 7.2 x 4.1 x 5.8 cm. Echogenic rounded lesion centered within the endometrium measures 1.0 x 1.3 x 1.4 cm with possible color Doppler flow. The endometrial stripe measures 4 mm in thickness. Adnexa: The left ovary measures 1.1 x 2.0 x 0.9 cm for a volume of 1.0 mL. The right ovary measures 2.4 x 1.8 x 1.4 cm for a volume of 3.2 mL. There is no pelvic ascites or fluid collection. US/US pelvic and transvaginal IMPRESSION: No significant interval change in submucosal fibroid measuring 1.0 x 1.3 x 1.4 cm.
== END 2023-09-23 13:22 | disposition home or self-care (01) ==
LOC: HO.US 13:21
PROVIDERS: Visit Provider Advanced Practice Midwife
DX: R10.2 Pelvic and perineal pain (principal); N73.9 Female pelvic inflammatory disease, unspecified
CPT/HCPCS: 76830; 76856

== ENCOUNTER 2023-12-29 12:11 | Outpatient (REF) | payer OTHER, SELFPAY ==
[2023-12-30 05:29] LABS: CT PCR NOT DETECTED (Not Detect.); NG PCR NOT DETECTED (Not Detect.)
[2023-12-30 09:27] LABS: BV Int Neg Control Negative (Negative); BV Int Pos Control Positive (Positive)
== END 2023-12-29 12:12 | disposition home or self-care (01) ==
LOC: HO.LNP 12:11
PROVIDERS: PCP Internal Medicine; Visit Provider Obstetrics & Gynecology
DX: N76.0 Acute vaginitis (principal); B96.89 Other specified bacterial agents as the cause of diseases classified elsewhere
CPT/HCPCS: 0353U; 87480; 87510; 87660

== ENCOUNTER 2023-12-29 12:11 | Outpatient (AMB) | payer OTHER, SELFPAY ==
[2023-12-29 12:18] VITALS: BP 96/70; BMI 27.8
--- NOTE | 2023-12-29 12:18 | MHC.OFFVIS ---
Vital Signs 12/29/23 12:18 Height 5 ft 2 in Weight 152 lb BMI 27.8 BP 96/70 Intake Visit Reasons: ? yeast infection Club Manager Required: No Information Interpreted: non-clinical & clinical Second Hand Paper Machine: Second Hand Paper Machine Present (Aidyn) Allergies diphenhydramine [From Benadryl] Adverse Reaction (Verified 12/29/23 12:22) Anxiety, legs getting numb Is last menstrual period known: Yes Last menstrual period: 12/13/23 Post menopausal: No HPI Comments Details: Presenting complaining of vaginal discharge associated with foul odor and vulvovaginal itching PFSH Medical History Borderline high cholesterol IBS (irritable bowel syndrome) Endometrial polyp Migraine without aura Anemia Hx of breast lump Hx of anxiety disorder Hx of seasonal allergies Hx of migraine headaches Hx of gastroesophageal reflux (GERD) Surgical History History of lumpectomy of right breast Hx of tubal ligation History of surgical removal of ganglion cyst Family History Father Hx of anxiety disorder Hx of human immunodeficiency virus I infection Mother Diabetes mellitus Hypertension Maternal Grandfather Diabetes mellitus Hypertension CVD (cardiovascular disease) Paternal Grandmother Hx of glaucoma Hx of acute arthritis Paternal Grandfather Myocardial infarction Social History Housing: Apartment Alcohol intake: current Alcohol intake frequency: a few times a week Patient Tobacco Use Status: Never used Tobacco e-Cigarette/Vaping Use: Never Used Second Hand Smoke Exposure: No Current occupational status: employed Sexual orientation: Straight/Heterosexual Gender identity: Female Cognitive needs: No Hearing needs: No Vision needs: Yes Female Reproductive History Menstrual Age of Menarche: 13 Date of last menstrual period: 12/13/23 control method: permanent sterilization Date of last pap smear: 02/02/23 (negative) Review of Systems Const All systems reviewed & are unremarkable except as noted in HPI and below Physical Exam Vital Signs: Last Vital Signs BP 96/70 12/29/23 12:18 BMI result Body Mass Index 27.8 General: Yes no CVA tenderness External Female Exam: normal external appearance and normal appearance of the urethra Speculum Exam - Vagina: normal appearance of the vagina, normal palpation, no lesions and no masses Speculum Exam - Cervix: normal appearance of the cervix, normal palpation, no lesions, no masses and nontender Bimanual exam- vagina & uterus: normal bimanual exam, normal palpation, uterine size normal, normal palpation, uterine shape normal, No Cervical tenderness present and non-tender Bimanual Exam- Adnexa, other: normal adnexae Back/Spine/Pelvis Back: no CVA tenderness Assessment & Plan Assessment & Plan (1) Vulvovaginitis: Comment: Mixed VVC +BV Code(s): N76.0 - Acute vaginitis Category: Medical Plan: GC and chlamydia cultures with BV panel taken. Terconazole 0.8% q.h.s. for 3 days sent to patient's pharmacy. Per CDC recommendation, will screen for STI, HepBs Ag, HIV, RPR, Hep C Ab ordered. Will treat with Flagyl 500 mg p.o. b.i.d. x 7 days, Instructions given to the patient to refrain from sexual activity or to use condoms consistently and correctly during the BV treatment regimen, not to douch, it might increase the risk for relapse, and to call if symptoms persist or recur. Orders: Orders Hepatitis B Surface Antigen Today B96.89 - Other specified bacterial agents as the cause of diseases classified elsewhere, N76.0 - Acute vaginitis HIV Ab/Ag Today B96.89 - Other specified bacterial agents as the cause of diseases classified elsewhere, N76.0 - Acute vaginitis Syphilis Screen Today B96.89 - Other specified bacterial agents as the cause of diseases classified elsewhere, N76.0 - Acute vaginitis Medications: New metronidazole 500 mg PO BID 7 days 14 tabs 0RF terconazole 0.8% 1 appful vaginal BEDTIME 3 days 20 grams 0RF Coding Level of Care Code Est Pt Level 3 (52965) Diagnoses Vulvovaginitis N76.0
== END 2023-12-29 13:52 | disposition home or self-care (01) ==
LOC: HO.HWS 12:11
PROVIDERS: PCP Internal Medicine; Visit Provider Obstetrics & Gynecology
DX: N76.0 Acute vaginitis (principal)
CPT/HCPCS: 99213

== ENCOUNTER 2024-07-15 13:02 | Outpatient (AMB) | payer OTHER, SELFPAY ==
[2024-07-15 13:09] VITALS: BP 124/80; O2SAT 98
--- NOTE | 2024-07-15 13:09 | A.OFFPC_ITS ---
Vital Signs 07/15/24 13:09 BP 124/80 Blood Pressure Location Rt brachial Position Sitting Pulse Oximetry (%) 98 Oxygen Delivery Method Room Air Intake Visit Reasons: Sinus infection Allergies diphenhydramine [From Benadryl] Adverse Reaction (Verified 12/29/23 12:22) Anxiety, legs getting numb Medication List - Last Reconciled 07/15/24 by Meme Santos PA-C cetirizine (Zyrtec) 10 mg PO DAILY eletriptan (Relpax) 40 mg PO BID PRN fluconazole Take PO once, then repeat dose in 72 hours 1 dose levonorgestrel (Mirena) intrauterine methocarbamol 750 mg PO Q8H naproxen (Naprosyn) 500 mg PO BID scopolamine base 1 patch transdermal Q3D PRN topiramate (Topamax) 25 mg PO DAILY Tobacco use date assessed: 05/13/23 Dental Screening Dental Screen Date: 05/13/23 HPI Sinus infection HPI Details 48-year-old female with past medical his tory of IBS and migraine coming to the office for acute concern. Patient states her symptoms began primarily this week however she did have a runny nose and stuffy nose last week. Over the last week she has been having worsening cough, chills and fatigue. She has been using Afrin as well as cold and flu medications with mild improvement. She does have a cough primarily worse at night. [facility] Medical History Borderline high cholesterol IBS (irritable bowel syndrome) Endometrial polyp Migraine without aura Anemia Hx of breast lump Hx of anxiety disorder Hx of seasonal allergies Hx of migraine headaches Hx of gastroesophageal reflux (GERD) Surgical History History of lumpectomy of right breast Hx of tubal ligation History of surgical removal of ganglion cyst Family History Father Hx of anxiety disorder Hx of human immunodeficiency virus I infection Mother Diabetes mellitus Hypertension Maternal Grandfather Diabetes mellitus Hypertension CVD (cardiovascular disease) Paternal Grandmother Hx of glaucoma Hx of acute arthritis Paternal Grandfather Myocardial infarction Social History Housing: Apartment Alcohol intake: current Alcohol intake frequency: a few times a week Patient Tobacco Use Status: Never used Tobacco e-Cigarette/Vaping Use: Never Used Second Hand Smoke Exposure: No Current occupational status: employed Sexual orientation: Straight/Heterosexual Gender identity: Female Cognitive needs: No Hearing needs: No Vision needs: Yes Female Reproductive History Menstrual Age of Menarche: 13 Questionnaire Thrive Questionnaire Date Thrive assessed: 04/09/21 Review of Systems Const Reports body aches, Reports chills, Reports fatigue, Reports fever(s), Denies headache(s) and Denies poor appetite Eyes Reports no additional complaints ENT Denies dysphagia, Denies dizziness, Denies otalgia, Reports facial pain, Denies headache(s), Reports nasal congestion, Reports nasal discharge, Denies odynophagia, Reports sinus pain and Denies sore throat Card Denies chest pain and Denies dyspnea Resp Reports cough, Denies hemoptysis, Denies excessive phlegm production and Denies dyspnea GI Denies abdominal pain, Denies constipation, Denies dysphagia, Denies diarrhea, Denies nausea, Denies odynophagia and Denies vomiting Reports no additional complaints Musc Reports no additional complaints and Denies abnormal gait Skin/Breast Reports system reviewed and no additional complaints, except as documented Neuro Denies abnormal gait, Denies dizziness and Denies headache(s) Psych Reports no additional complaints Endo Reports fatigue Physical exam (Primary Care) Tobacco/Smoking Status: Tobacco use Status Tobacco use date assessed 05/13/23 07/15/24 10:19 Patient Tobacco Use Status Never used Tobacco 07/15/24 10:19 e-Cigarette/Vaping Use Never Used 07/15/24 10:19 Thrive Assessment: Date of Thrive Assessment Date Thrive assessed 04/09/21 07/15/24 10:19 Const General: cooperative, healthy appearing, comfortable and no acute distress Orientation/consciousness: patient oriented x3 HENMT Head: Yes normocephalic Ears: hearing grossly normal bilaterally, TM's normal bilaterally and EAC's normal General nose exam: Normal external nose present Face and sinus: Yes sinus tenderness Eyes General: appearance normal, both eyes and all related structures Conjunctivae: conjunctivae normal Neck Neck: Yes full ROM and Yes no lymphadenopathy Resp Effort & Inspection: normal respiratory effort Auscultation: clear to auscultation bilaterally, no crackles, no rales, no rhonchi and no wheezes Cardio Rate: regular rate Rhythm: regular rhythm Skin General skin exam: no rashes or lesions noted Neuro General: patient oriented x3 Gait exam (Neuro): Normal gait present Extrem General: Yes normal to inspection, Yes full ROM and No edema Psych Affect: normal affect Attitude: cooperative Insight: Good insight present (Psych) Judgement: Good judgement present (Psych) Coding Level of Care Code Est Pt Level 3 (65089) Diagnoses Sinusitis J32.9 Assessment & Plan Assessment & Plan (1) Sinusitis: Code(s): J32.9 - Chronic sinusitis, unspecified Category: Medical Plan: Patient complaining of runny nose starting last week and symptoms worsening over this week. Patient has been having chills, sinus pressure and pain and thick nasal discharge. We will trial azithromycin 500 mg for 3 days for treatment of acute sinusitis. Advised patient to continue with conservative measures such as Mucinex for productive cough, fluids and Tylenol as needed for fever. If symptoms persist or worsen please reach out to the office. Plan This note was constructed using voice recognition software. While every effort has been made to ensure accuracy and electromatic typist, still areas may have been included sometimes these areas may affect the content or meeting of the given symptoms. Total time spent caring for the patient today was 20 minutes. This includes time spent before the visit reviewing the chart, time spent during the visit, and time spent after the visit and documentation. Medications: New azithromycin For 500 mg dose pack: take 500 mg once daily for 3 days PO. Do not take with fluconazole 3 tabs 0RF
== END 2024-07-15 13:22 | disposition home or self-care (01) ==
PROVIDERS: PCP Internal Medicine
DX: J32.9 Chronic sinusitis, unspecified (principal)

== ENCOUNTER → 2024-07-15 13:02 | Outpatient (BNVA) | payer OTHER, SELFPAY | PROVIDERS: PCP Internal Medicine ==

== ENCOUNTER 2024-09-08 13:37 | Outpatient (REF) | payer OTHER, SELFPAY ==
--- NOTE | ~2024-09-08 | XR_ITS ---
CLINICAL HISTORY: RIGHT HIP PAIN. 2 view, pelvis and right hip Comparison: None Findings: No acute fracture or dislocation. No significant arthritic change. The soft tissues are unremarkable. IMPRESSION: No acute findings. This document has been electronically signed by: Kerry Rodrigues MD on 09/10/2024 05:49:24
--- NOTE | ~2024-09-08 | XR_ITS ---
CLINICAL HISTORY: Left hip pain. 2 view left hip Comparison: None Findings: No acute fracture or dislocation. No significant arthritic change. The soft tissues are unremarkable. IMPRESSION: No acute findings. This document has been electronically signed by: Kerry Rodrigues MD on 09/10/2024 05:48:22
[2024-09-08 16:32] LABS: Rheumatoid Factor < 13.0 IU/mL (<15.0)
[2024-09-08 16:48] LABS: Erythrocyte Sedimentation Rate 12 MM/HR (0-20)
[2024-09-09 18:43] LABS: CRP High Sensitivity 1.2 mg/L
== END 2024-09-08 13:38 | disposition home or self-care (01) ==
LOC: HO.HMGCX 13:37
PROVIDERS: PCP Internal Medicine; Visit Provider Internal Medicine
DX: M25.559 Pain in unspecified hip (principal); G89.29 Other chronic pain; M25.50 Pain in unspecified joint
CPT/HCPCS: 36415; 73502; 85652; 86141; 86431

== ENCOUNTER → 2024-09-08 13:37 | Outpatient (AMB) | payer OTHER, SELFPAY ==
[2024-09-08 13:46] VITALS: BP 100/72; PULSE 78; O2SAT 97; BMI 27.2
--- NOTE | 2024-09-08 13:46 | MHC.PC.OV ---
Vital Signs 09/08/24 13:46 Height 5 ft 2 in Weight 149 lb BMI 27.2 BP 100/72 Blood Pressure Location Lt brachial Position Sitting Pulse 78 Pulse Source Pulse Oximeter Pulse Oximetry (%) 97 Oxygen Delivery Method Room Air Intake Visit Reasons: Left hip pain Intake Note: Pt is here today c/o Lt hip pain Allergies diphenhydramine [From Benadryl] Adverse Reaction (Verified 09/08/24 14:25) Anxiety, legs getting numb Medication List - Last Reconciled 09/08/24 by Mandi Haines MD celecoxib 200 mg PO DAILY PRN eletriptan (Relpax) 40 mg PO BID PRN naproxen (Naprosyn) 500 mg PO BID topiramate (Topamax) 25 mg PO DAILY Tobacco use date assessed: 09/08/24 Dental Screening Dental Screen Date: 09/08/24 Did you have a dental visit in the last 12 months?: Yes Did you have a dental problem in the last 6 months where you did not have access to dental care?: No Was dental information given to patient?: Patient has dentist HPI Left hip pain HPI Details 48-year-old lady here today complaining of progressive pain in her left hip joint. Patient states that it feels like there is a stabbing sensation inside her left hip and left groin area whenever she twists or trunk ordered tries to get up from lying or sitting position. This has been present now for the last 8 days. No history of trauma has had on and off hip pain in the past, for which he takes ibuprofen affording only temporary relief. Denies any numbness tingling going down extremities, no leg weakness associated. Patient states she has tried taking naproxen which has not helped and has taken an 800 mg ibuprofen tablet which affords only temporary relief. [facility] Medical History Hip pain, chronic Borderline high cholesterol IBS (irritable bowel syndrome) Endometrial polyp Migraine without aura Anemia Hx of breast lump Hx of anxiety disorder Hx of seasonal allergies Hx of migraine headaches Hx of gastroesophageal reflux (GERD) Surgical History History of lumpectomy of right breast Hx of tubal ligation History of surgical removal of ganglion cyst Family History Father Hx of anxiety disorder Hx of human immunodeficiency virus I infection Mother Diabetes mellitus Hypertension Maternal Grandfather Diabetes mellitus Hypertension CVD (cardiovascular disease) Paternal Grandmother Hx of glaucoma Hx of acute arthritis Paternal Grandfather Myocardial infarction Social History Housing: Apartment Alcohol intake: current Alcohol intake frequency: a few times a week Patient Tobacco Use Status: Never used Tobacco e-Cigarette/Vaping Use: Never Used Second Hand Smoke Exposure: No Current occupational status: employed Sexual orientation: Straight/Heterosexual Gender identity: Female Cognitive needs: No Hearing needs: No Vision needs: Yes Female Reproductive History Menstrual Age of Menarche: 13 Questionnaire Thrive Questionnaire Date Thrive assessed: 09/08/24 I am a: Patient What is your living situation today?: I have a steady place to live Within the past 12 months, did the food you bought not last and you didn't have the money to get more?: Never true Within the past 12 months, did you worry whether your food would run out before you got money to buy more?: Never true Do you have trouble paying for medicines?: No Do you have trouble getting transportation to medical appointments?: No Do you have trouble paying your heating and electricity bill?: No Do you have trouble taking care of your child, family member or friend?: No Do you have trouble with day-to-day activities such as bathing, preparing meals, shopping, managing finances, etc.?: No Are you currently unemployed and looking for a job?: No Are you interested in more education?: No Please select the resources that you would like help with: None Currently or been in a relationship where the following occur: No concerns reported THRIVE Score: 0 AUDIT C Alcohol Use Questionnaire (AUDIT-C) 1. How often do you have a drink containing alcohol?: Monthly or less 2. How many drinks containing alcohol do you have on a typical day when you are drinking?: 1 or 2 3. How often do you have six or more drinks on one occasion?: Less than monthly Total Score: 2 LEONARD-7 AMB Questionnaire LEONARD-7 Date LEONARD - 7 assessed: 09/08/24 Feeling nervous, anxious, or on edge: 1 = Several days Not being able to stop or control worryin = Several days Worrying too much about different things: 1 = Several days Trouble relaxin = Several days Being so restless that it is hard to sit still: 0 = Not at all Becoming easily annoyed or irritable: 0 = Not at all Feeling afraid as if something awful might happen: 0 = Not at all Total LEONARD-7 score (0-4 normal; 5-9 mild; 10-14 moderate; 15-21 severe): 4 Source: Developed by Drs. Jeff Coker, Rae Jorgensen, Marco Antonio Guadarrama and colleagues, with an educational darby from [employer]. Review of Systems Const Reports no additional complaints GI Reports no additional complaints Reports no additional complaints Musc Reports as per HPI and Denies abnormal gait Neuro Reports no additional complaints and Denies abnormal gait Physical exam (Primary Care) Vital Signs: Last Vital Signs Pulse 78 09/08/24 13:46 BP 100/72 09/08/24 13:46 Pulse Ox 97 09/08/24 13:46 Oxygen Delivery Method Room Air 09/08/24 13:46 BMI result Body Mass Index 27.2 Tobacco/Smoking Status: Tobacco use Status Tobacco use date assessed 09/08/24 09/08/24 13:53 Patient Tobacco Use Status Never used Tobacco 09/08/24 13:53 e-Cigarette/Vaping Use Never Used 09/08/24 13:53 Thrive Assessment: Date of Thrive Assessment Date Thrive assessed 09/08/24 09/08/24 13:53 Currently or been in a relationship where the following occur: No concerns reported Const Other: Alert oriented x3, no acute distress noted slight limping gait seen favoring left leg Nutritional Appearance: average body habitus Orientation/consciousness: patient oriented x3 Neck Neck: Yes full ROM, Yes no lymphadenopathy and Yes supple General: Yes no CVA tenderness Back/Spine/Pelvis Other: Tenderness on palpation over left inguinal area and left greater trochanter, no inguinal lymphadenopathy Back: no CVA tenderness and back tenderness (Slight tenderness over lumbosacral area) Skin General skin exam: no rashes or lesions noted Neuro General: patient oriented x3, moves all extremities, Normal light touch and pain sensation and no focal motor deficits Extrem Other: Pain elicited on flexion abduction of left hip joint General: Yes full ROM Coding Level of Care Code Est Pt Level 4 (23768) Diagnoses Hip pain, chronic M25.559; G89.29 Assessment & Plan Assessment & Plan (1) Hip pain, chronic: Code(s): M25.559 - Pain in unspecified hip; G89.29 - Other chronic pain Category: Medical Plan: X-ray of bilateral hip joint ordered, referred for physical therapy. Will check sed rate, CRP, rheumatoid factor. Prescription sent for celecoxib 200 mg per capsule to take 1 or 2 capsules once a day as needed for pain. Alternate with Tylenol arthritis 650 mg daily. Call if no improvement of symptoms after physical therapy Orders: Orders CRP High Sensitivity Today G89.29 - Other chronic pain, M25.50 - Pain in unspecified joint, M25.559 - Pain in unspecified hip Rheumatoid Factor Today G89.29 - Other chronic pain, M25.50 - Pain in unspecified joint, M25.559 - Pain in unspecified hip PT Evaluation and Treatment Today G89.29 - Other chronic pain, M25.559 - Pain in unspecified hip XR hip CLAUDIA min 3V Today G89.29 - Other chronic pain, M25.559 - Pain in unspecified hip Erythrocyte Sedimentation Rate Today G89.29 - Other chronic pain, M25.50 - Pain in unspecified joint, M25.559 - Pain in unspecified hip Medications: New celecoxib 200 mg PO DAILY PRN 30 caps 0RF pain
== END ==
PROVIDERS: PCP Internal Medicine; Visit Provider Internal Medicine
DX: M25.559 Pain in unspecified hip (principal); G89.29 Other chronic pain

== ENCOUNTER → 2024-09-08 14:32 | Outpatient (BNV) | payer OTHER, SELFPAY | PROVIDERS: PCP Internal Medicine; Visit Provider Radiology Diagnostic Radiology | DX: M25.552 Pain in left hip (principal); M25.551 Pain in right hip | CPT/HCPCS: 73502 ==

== ENCOUNTER 2024-09-15 08:30 | Outpatient (AMB) | payer OTHER, SELFPAY ==
--- NOTE | 2024-09-15 08:32 | A.OFFVIS_ITS ---
Vital Signs 09/15/24 08:36 Height 5 ft 2 in Weight 148 lb 8 oz BMI 27.2 BP 119/67 Blood Pressure Location Rt brachial Position Sitting Pulse 74 Pulse Source Pulse Oximeter Intake Visit Reasons: Pain in unspecified hip Intake Note: Pain today 8/10 Silver Lap Machine Tender Required: No Accompanied by: Self / Same As Patient Allergies diphenhydramine [From Benadryl] Adverse Reaction (Verified 09/15/24 08:37) Anxiety, legs getting numb HPI Comments Details: Mary Ann is a very pleasant 48-year-old female who presents to the office today for evaluation and management of her left hip pain Endorses 3 weeks of pain over left anterior lateral iliac crest. Worse with walking, movement and slightly tender to palpation Denies fall, injury, trauma. Denies radiation of the pain down either lower extremity Denies numbness, tingling, weakness of either lower extremity Bilateral hip imaging recently performed, results as per below She has been evaluated by PCP, PT is starting 09/28/24 Denies previous attempts at chiropractor, acupuncture, massage or injections She has been taking nonsteroidal anti-inflammatory medications with no improvement. PCP recently prescribed Celebrex but patient has yet to start it. She states she is nervous so continues taking naproxen. Pain today is rated as an 8/10, constant throughout the day and night Denies red flag symptoms including new loss of bowel, bladder or saddle anesthesia In terms of muscle damage condition is described as burning, aching Pain is negatively impacting patient's enjoyment of life, general activity, sleep, ability to function normally, work Denies current use of anticoagulants Denies implantable device, pacemaker or defibrillator Denies current use of nicotine, tobacco or illicit substances. Endorses social EtOH use Status post tubal ligation [facility] Medical History (Updated 09/15/24 @ 12:42 by Elina Kiran, FITNESS MANAGER, AVIATION WARFARE SYSTEMS OPERATOR) History of 2019 novel coronavirus disease (COVID-19) Hip pain, chronic Borderline high cholesterol IBS (irritable bowel syndrome) Endometrial polyp Migraine without aura Anemia Hx of breast lump Hx of anxiety disorder Hx of seasonal allergies Hx of migraine headaches Hx of gastroesophageal reflux (GERD) Surgical History History of lumpectomy of right breast Hx of tubal ligation History of surgical removal of ganglion cyst Family History Father Hx of anxiety disorder Hx of human immunodeficiency virus I infection Mother Diabetes mellitus Hypertension Maternal Grandfather Diabetes mellitus Hypertension CVD (cardiovascular disease) Paternal Grandmother Hx of glaucoma Hx of acute arthritis Paternal Grandfather Myocardial infarction Social History Housing: Apartment Alcohol intake: current Alcohol intake frequency: a few times a week Patient Tobacco Use Status: Never used Tobacco e-Cigarette/Vaping Use: Never Used Second Hand Smoke Exposure: No Current occupational status: employed Sexual orientation: Straight/Heterosexual Gender identity: Female Cognitive needs: No Hearing needs: No Vision needs: Yes Female Reproductive History Menstrual Age of Menarche: 13 Review of Systems Const All systems reviewed & are unremarkable except as noted in HPI and below Physical Exam Vital Signs: Last Vital Signs Pulse 74 09/15/24 08:36 BP 119/67 09/15/24 08:36 BMI result Body Mass Index 27.2 General: awake, alert, oriented. Answers questions appropriately. Fully engaged in examination. Skin: warm, dry, intact HEENT: Normocephalic. Hearing intact. Cardiac: External chest normal in appearance. Respiratory: No cough, audible wheezing or stridor. Abdomen: without gross distension. MS: No obvious swelling or deformities. Able to transition from sit to stand unassisted. Tenderness over left anterior lateral iliac crest. No pain with internal/external rotation of the left hip Nontender over midline lumbar vertebrae and lumbar paraspinal muscles Lumbar range of motion intact Bilateral lower extremity strength 5/5 SLR negative bilaterally Neurological: Oriented to person, place, time and situation. Thought process intact. Antalgic gait Psychiatric: Appropriate mood and affect. Good judgment and insight. Results Reviewed Results Reviewed: 09/10/24 2 view left hip Findings: No acute fracture or dislocation. No significant arthritic change. The soft tissues are unremarkable. IMPRESSION: No acute findings. 09/10/24 2 view, pelvis and right hip Findings: No acute fracture or dislocation. No significant arthritic change. The soft tissues are unremarkable. IMPRESSION: No acute findings. Assessment & Plan Assessment & Plan (1) Hip pain, chronic: Code(s): M25.559 - Pain in unspecified hip; G89.29 - Other chronic pain Category: Medical (2) Left hip pain: Code(s): M25.552 - Pain in left hip Category: Medical (3) Iliac crest bone pain: Code(s): M89.8X8 - Other specified disorders of bone, other site Category: Medical Plan Order placed for PT eval and treat No prescription for tizanidine 2 mg p.o. twice daily as needed. Patient advised on cautions for use X-ray reviewed, results as per above Continue with NSAIDs as needed All questions and concerns were answered, patient agrees with the plan. Follow up after PT, sooner if needed Orders: Orders PT Evaluation and Treatment Today M25.552 - Pain in left hip, M89.8X8 - Other specified disorders of bone, other site Medications: New tizanidine May cause drowsiness, no driving while taking this medication. 2 mg PO BID PRN 60 tabs 3RF muscle spasticity Coding Level of Care Code New Pt Level 4 (12558) Complex EM visit Add On G2211 Diagnoses Hip pain, chronic M25.559; G89.29 Left hip pain M25.552 Iliac crest bone pain M89.8X8
[2024-09-15 08:36] VITALS: BP 119/67; PULSE 74; BMI 27.2
--- OUTSIDE RECORDS SUMMARY | 2024-09-15 08:58 | XMS_ITS | Clinical Summary ---
Author Organization [facility] Address [address] [place] [address] Care Team Providers Care Physical Biochemist Name Role Phone Unknown Primary Care Provider [phone] Allergies No known active allergies Medications No known medications Social History Tobacco Use Types Packs/Day Years Used Date Smoking Tobacco: Some Days Alcohol Use Standard Drinks/Week Comments Yes 0 (1 standard drink = 0.6 oz pur e alcohol) Sex and Gender Information Value Date Recorded Sex Assigned at Not on file Gender Identity Not on file Sexual Orientation Not on file Last Filed Vital Signs Vital Sign Reading Time Taken Comments Blood Pressure 117/55 09/19/2017 12:49 PM EST Pulse 109 09/19/2017 12:49 PM EST Temperature 35 ??C (95 ??F) 09/19/2017 12:49 PM EST Respiratory Rate 20 09/19/2017 12:49 PM EST Oxygen Saturation 99% 09/19/2017 12:49 PM EST Inhaled Oxygen Concentration - - Weight - - Height - - Body Mass Index - - Plan of Treatment Health Maintenance Due Date Last Done Comments Hepatitis C Virus Screening 1977 HIV Screening 1990 DTaP/Tdap/Td Vaccines (1 - Tdap) 1996 Hepatitis B Vaccines (1 of 3 - 19+ 3-dose series) 1996 Pap Smear (Ages 21-65) 1998 Mammogram 2017 Colonoscopy 2022 Influenza Vaccine 03/24/2024 COVID-19 Vaccine ( - 2023-2 5 season) 2024 Pneumococcal Vaccine: Pediat bob (0-5 Years) and At-Risk Patients (6 to 49 Years) Aged Out No longer eligible b ased on patient's age to complete this topic Insurance Payer Benefit Plan / Group Subscriber ID Effective Dates Phone Address [facility] [id number] [place] [address] Care Teams Physical Biochemist Relationship Specialty Start Date End Date Unknown Unknow Provider Address PCP - General 09/19/17
== END 2024-09-15 08:56 | disposition home or self-care (01) ==
PROVIDERS: PCP Internal Medicine; Referring Provider Internal Medicine; Visit Provider Registered Nurse Emergency
DX: M25.559 Pain in unspecified hip (principal); G89.29 Other chronic pain; M25.552 Pain in left hip; M89.8X8 Other specified disorders of bone, other site
CPT/HCPCS: 99204

== ENCOUNTER → 2024-09-15 08:30 | Outpatient (BNVA) | payer OTHER, SELFPAY | PROVIDERS: PCP Internal Medicine; Referring Provider Internal Medicine; Visit Provider Registered Nurse Emergency ==

== ENCOUNTER 2024-09-22 12:40 | Outpatient (REF) | payer OTHER, SELFPAY ==
--- OUTSIDE RECORDS SUMMARY | 2024-09-22 16:50 | XMS_ITS | Clinical Summary ---
Author Organization [facility] Address [address] [place] [address] Care Team Providers Care Front Desk Manager Name Role Phone Unknown Primary Care Provider [phone] Allergies No known active allergies Medications No [...] Group Subscriber ID Effective Dates Phone Address [facility] [id number] [place] [address] Care Teams Front Desk Manager Relationship Specialty Start Date End Date Unknown Unknow Provider Address PCP - General 09/19/17
[2024-09-23 05:38] LABS: CT PCR NOT DETECTED (Not Detect.); NG PCR NOT DETECTED (Not Detect.)
[2024-09-23 10:26] LABS: Bacterial Vaginosis PCR POSITIVE (Negative); Candida Group PCR NOT DETECTED (Not Detect); Candida glab krusei PCR NOT DETECTED (Not Detect); Trichomonas vaginalis PCR NOT DETECTED (Not Detect)
== END 2024-09-22 12:41 | disposition home or self-care (01) ==
LOC: HO.LAB 12:40
PROVIDERS: PCP Internal Medicine; Visit Provider Obstetrics & Gynecology
DX: N76.0 Acute vaginitis (principal); B96.89 Other specified bacterial agents as the cause of diseases classified elsewhere
CPT/HCPCS: 81515; 87491; 87591

== ENCOUNTER 2024-09-22 12:40 | Outpatient (AMB) | payer OTHER, SELFPAY ==
--- NOTE | 2024-09-22 12:43 | MHC.OFFVIS ---
Intake Visit Reasons: vaginal odor, discharge Allergies diphenhydramine [From Benadryl] Adverse Reaction (Verified 09/22/24 12:43) Anxiety, legs getting numb HPI Comments Details: The patient is presenting complaining of vaginal discharge associated with foul odor, no other associated symptoms, vaginal itching or any other complaint [facility] Medical History History of 2019 novel coronavirus disease (COVID-19) Hip pain, chronic Borderline high cholesterol IBS (irritable bowel syndrome) Endometrial polyp Migraine without aura Anemia Hx of breast lump Hx of anxiety disorder Hx of seasonal allergies Hx of migraine headaches Hx of gastroesophageal reflux (GERD) Surgical History History of lumpectomy of right breast Hx of tubal ligation History of surgical removal of ganglion cyst Family History Father Hx of anxiety disorder Hx of human immunodeficiency virus I infection Mother Diabetes mellitus Hypertension Maternal Grandfather Diabetes mellitus Hypertension CVD (cardiovascular disease) Paternal Grandmother Hx of glaucoma Hx of acute arthritis Paternal Grandfather Myocardial infarction Social History Housing: Apartment Alcohol intake: current Alcohol intake frequency: a few times a week Patient Tobacco Use Status: Never used Tobacco e-Cigarette/Vaping Use: Never Used Second Hand Smoke Exposure: No Current occupational status: employed Sexual orientation: Straight/Heterosexual Gender identity: Female Cognitive needs: No Hearing needs: No Vision needs: Yes Female Reproductive History Menstrual Age of Menarche: 13 Review of Systems Const All systems reviewed & are unremarkable except as noted in HPI and below Physical Exam General: Yes no CVA tenderness External Female Exam: normal external appearance and normal appearance of the urethra Speculum Exam - Vagina: normal appearance of the vagina, normal palpation, no lesions and no masses Speculum Exam - Cervix: normal appearance of the cervix, normal palpation, no lesions, no masses and nontender Bimanual exam- vagina & uterus: normal bimanual exam, normal palpation, uterine size normal, normal palpation, uterine shape normal, No Cervical tenderness present and non-tender Bimanual Exam- Adnexa, other: normal adnexae Back/Spine/Pelvis Back: no CVA tenderness Assessment & Plan Assessment & Plan (1) Bacterial vaginosis: Code(s): N76.0 - Acute vaginitis; B96.89 - Other specified bacterial agents as the cause of diseases classified elsewhere Category: Medical Plan: GC and chlamydia cultures with BV panel taken. Per CDC recommendation, will screen for STI, HepBs Ag, HIV, RPR, Hep C Ab ordered. Will treat with Flagyl 500 mg p.o. b.i.d. x 7 days, Instructions given to the patient to refrain from sexual activity or to use condoms consistently and correctly during the BV treatment regimen, not to douch, it might increase the risk for relapse, and to call if symptoms persist or recur. Orders: Orders Hepatitis B Surface Antigen Today B96.89 - Other specified bacterial agents as the cause of diseases classified elsewhere, N76.0 - Acute vaginitis Syphilis Screen Today B96.89 - Other specified bacterial agents as the cause of diseases classified elsewhere, N76.0 - Acute vaginitis Hepatitis C Antibody Today B96.89 - Other specified bacterial agents as the cause of diseases classified elsewhere, N76.0 - Acute vaginitis HIV Ab/Ag Today B96.89 - Other specified bacterial agents as the cause of diseases classified elsewhere, N76.0 - Acute vaginitis Medications: New metronidazole 500 mg PO BID 7 days 14 tabs 0RF Coding Level of Care Code Est Pt Level 3 (20701) Diagnoses Bacterial vaginosis N76.0; B96.89
--- OUTSIDE RECORDS SUMMARY | 2024-09-22 16:28 | XMS_ITS | Clinical Summary ---
Author Organization [facility] Address [address] [place] [address] Care Team Providers Care Double Corner Cutter Name Role Phone Unknown Primary Care Provider [phone] Allergies No known active allergies Medications No [...] Group Subscriber ID Effective Dates Phone Address [facility] [id number] [place] [address] Care Teams Double Corner Cutter Relationship Specialty Start Date End Date Unknown Unknow Provider Address PCP - General 09/19/17
== END 2024-09-22 13:01 | disposition home or self-care (01) ==
LOC: HO.HWS 12:40
PROVIDERS: PCP Internal Medicine; Visit Provider Obstetrics & Gynecology
DX: N76.0 Acute vaginitis (principal); B96.89 Other specified bacterial agents as the cause of diseases classified elsewhere
CPT/HCPCS: 99213

== ENCOUNTER 2024-09-22 13:01 | Outpatient (REF) | payer OTHER, SELFPAY | END 2024-09-22 13:02 | disposition home or self-care (01) | LOC: HO.LNP 13:01 | PROVIDERS: Visit Provider Obstetrics & Gynecology | DX: Z13.89 Encounter for screening for other disorder (principal) ==

== ENCOUNTER 2024-09-27 07:04 | Outpatient (RCR) | payer OTHER, SELFPAY ==
--- NOTE | 2024-09-27 13:02 | MHC.PT.EP ---
[facility] [place] [facility] [place] Office [address] Shaina Christianson [address] [phone] F: [phone] F: [phone] F: [phone] F: [phone] Physical Therapy Plan of Care Date of Evaluation: 09/27/24 Date of Surgery: Diagnosis: CHRONIC HIP PAIN Assessment: 49 YO FEMALE REF TO PT FOR 1 MONTH H/O LEFT HIP COMPLEX PAIN, H/O LBP. 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 Lt HIP XR (-). OBJECTIVE FINDINGS: (+) LUMBOPELVIC ASYMM, TTP Lt ILIAC CREST/ QL/ INCT TISSUE TENSION IN CLAUDIA LUMBAR PS MM, (-) TTP Lt HIP, BUT (+) LEFT MICHELLE AND SACRAL SQUISH TESTS, DECR FLEXIB IN CLAUDIA HIPS, DECR TRUNK AROM, AND LIMITED SQUAT MECH/ LIFTING TAMARA/ STANDING/ TRANSITIONAL MVMTS/ UNABLE TO PERF REGULAR EXER/ HOPPING/RUNNING, AND FLUCTUATING PAIN. SHE DENIES RADIC SXS. SHE IS MOTIVATED FOR PT, ADDRESSING THE ABOVE FINDINGS, ULTIMATELY ADDRESSING PAIN/SX MGMT AND RESUMING HER FITNESS ROUTINE. Frequency and Duration: The patient will be seen 2 x WK x 4 WKS Short Term Goals: *IMPROVE LUMBOPELVIC STABILITY/ SYMMETRY TO REDUCE MECH STRESS Lt HIP COMPLEX *Pt'S LEFT HIP/ LS PAIN DECR TO 2-3/10 *INCR FLEXIB IN PSOAS/HIP IR/ CALF MM TO IMPROVE EFFICIENCY OF GAIT, TRANSITIONAL MVMTS ON LEVEL AND STAIRS *INITIATE HEP-> IMPROVE FUNCT SQUAT MECH Custodial Goals: *Pt WILL IMPROVE LUMBOPELVIC/ Lt LE STRENGTH TO AT LEAST 5-/5 *Pt INDEP W PROGR HEP AND SELF-SX MGMT TECHN *Pt RESUME REG ADLs / GYM WORKOUTS/ WALKING , EVIDENT W IMPROVED OSWESTRY SCORE (AT EVAL 40/80 ) Treatment Plan: Modalities to reduce pain, spasms and effusion. Manual therapy to restore motion and function. Therapeutic exercise to improve strength and flexibility. Neuromuscular re-education for posture and balance. Therapeutic activities to return to functional activities of daily living. Electronically signed by: FLETCHER MOHR PT Please sign and return to therapist. Thank you for your referral.
== END 2024-10-11 07:45 | disposition home or self-care (01) ==
LOC: HO.PT 07:04
PROVIDERS: PCP Internal Medicine; Visit Provider Internal Medicine
DX: M25.552 Pain in left hip (principal); M89.8X8 Other specified disorders of bone, other site
CPT/HCPCS: 97110; 97162

== ENCOUNTER 2024-09-30 09:00 | Outpatient (REF) | payer OTHER, SELFPAY ==
--- OUTSIDE RECORDS SUMMARY | 2024-09-30 09:21 | XMS_ITS | Clinical Summary ---
Author Organization [facility] Address [address] [place] [address] Care Team Providers Care Scrapper Name Role Phone Unknown Primary Care Provider [phone] Allergies No known active allergies Medications No [...] Group Subscriber ID Effective Dates Phone Address [facility] [id number] [place] [address] Care Teams Scrapper Relationship Specialty Start Date End Date Unknown Unknow Provider Address PCP - General 09/19/17
[2024-09-30 10:34] LABS: Alanine Aminotransferase 16 U/L (0-31); Anion Gap 7 (12-20); Aspartate Amino Transferase 16 U/L (5-31); Blood Urea Nitrogen 15 mg/dL (9-16); Calcium 8.6 mg/dL (8.4-10.2); Carbon Dioxide 21 mmol/L (22-29); Chloride 112 mmol/L (96-108); Cholesterol 223 mg/dL (<200); Estimated Glomerular Filt Rate > 60; Glucose Fasting 93 mg/dL (60-99); HDL Cholesterol 51 mg/dL (>40); LDL Cholesterol Calculated 132 mg/dL (<100); Sodium 136 mmol/L (135-145); Triglycerides 203 mg/dL (<150)
[2024-09-30 10:47] LABS: Syphilis Screen Nonreactive (Nonreactive)
[2024-09-30 10:49] LABS: HIV AB/AG Nonreactive (Nonreactive); HIV Num 1 0.05 S/CO (0.00-0.99); Hepatitis B Surface Antigen Negative (Negative); ~HepC Num1 0.12 S/CO (0.00-0.79); ~Hepatitis C Antibody Nonreactive (Nonreactive)
== END 2024-09-30 09:01 | disposition home or self-care (01) ==
LOC: HO.LAB 09:00
PROVIDERS: Absent Provider Internal Medicine; PCP Internal Medicine; Visit Provider Obstetrics & Gynecology
DX: E78.5 Hyperlipidemia, unspecified (principal); Z13.1 Encounter for screening for diabetes mellitus; N76.0 Acute vaginitis; B96.89 Other specified bacterial agents as the cause of diseases classified elsewhere
CPT/HCPCS: 36415; 80048; 80061; 84450; 84460; 86780; 86803; 87340; 87389

== ENCOUNTER 2024-11-11 12:01 | Outpatient (REF) | payer OTHER, SELFPAY ==
[2024-11-13 12:19] LABS: Bacterial Vaginosis PCR POSITIVE (Negative); Candida Group PCR NOT DETECTED (Not Detect); Candida glab krusei PCR NOT DETECTED (Not Detect); Trichomonas vaginalis PCR NOT DETECTED (Not Detect)
[2024-11-13 12:52] LABS: CT PCR NOT DETECTED (Not Detect.); NG PCR NOT DETECTED (Not Detect.)
== END 2024-11-11 12:02 | disposition home or self-care (01) ==
LOC: HO.LNP 12:01
PROVIDERS: PCP Internal Medicine; Visit Provider Obstetrics & Gynecology
DX: N76.0 Acute vaginitis (principal); B96.89 Other specified bacterial agents as the cause of diseases classified elsewhere
CPT/HCPCS: 81515; 87491; 87591

== ENCOUNTER 2024-11-11 12:01 | Outpatient (AMB) | payer OTHER, SELFPAY ==
--- NOTE | 2024-11-11 12:27 | MHC.OFFVIS ---
Intake Visit Reasons: vaginal discharge Supervisory Investigative Specialist: Supervisory Investigative Specialist Present (Analy) Accompanied by: Self / Same As Patient Allergies diphenhydramine [From Benadryl] Adverse Reaction (Verified 11/11/24 12:27) Anxiety, legs getting numb HPI Comments Details: The patient is presenting complaining of vaginal discharge associated with foul odor, no other associated symptoms, vaginal itching or any other complaint [facility] Medical History History of 2019 novel coronavirus disease (COVID-19) Hip pain, chronic Borderline high cholesterol IBS (irritable bowel syndrome) Endometrial polyp Migraine without aura Anemia Hx of breast lump Hx of anxiety disorder Hx of seasonal allergies Hx of migraine headaches Hx of gastroesophageal reflux (GERD) Surgical History History of lumpectomy of right breast Hx of tubal ligation History of surgical removal of ganglion cyst Family History Father Hx of anxiety disorder Hx of human immunodeficiency virus I infection Mother Diabetes mellitus Hypertension Maternal Grandfather Diabetes mellitus Hypertension CVD (cardiovascular disease) Paternal Grandmother Hx of glaucoma Hx of acute arthritis Paternal Grandfather Myocardial infarction Social History Housing: Apartment Alcohol intake: current Alcohol intake frequency: a few times a week Patient Tobacco Use Status: Never used Tobacco e-Cigarette/Vaping Use: Never Used Second Hand Smoke Exposure: No Current occupational status: employed Sexual orientation: Straight/Heterosexual Gender identity: Female Cognitive needs: No Hearing needs: No Vision needs: Yes Female Reproductive History Menstrual Age of Menarche: 13 Review of Systems Const All systems reviewed & are unremarkable except as noted in HPI and below Physical Exam General: Yes no CVA tenderness External Female Exam: normal external appearance and normal appearance of the urethra Speculum Exam - Vagina: normal appearance of the vagina, normal palpation, no lesions and no masses Speculum Exam - Cervix: normal appearance of the cervix, normal palpation, no lesions, no masses and nontender Bimanual exam- vagina & uterus: normal bimanual exam, normal palpation, uterine size normal, normal palpation, uterine shape normal, No Cervical tenderness present and non-tender Bimanual Exam- Adnexa, other: normal adnexae Back/Spine/Pelvis Back: no CVA tenderness Assessment & Plan Assessment & Plan (1) Bacterial vaginosis: Code(s): N76.0 - Acute vaginitis; B96.89 - Other specified bacterial agents as the cause of diseases classified elsewhere Category: Medical Plan: GC and chlamydia cultures with BV panel taken. Will treat with Flagyl 500 mg p.o. b.i.d. x 7 days, Instructions given to the patient to refrain from sexual activity or to use condoms consistently and correctly during the BV treatment regimen, not to douch, it might increase the risk for relapse, and to call if symptoms persist or recur. Medications: Refilled metronidazole 500 mg PO BID 7 days 14 tabs 0RF Coding Level of Care Code Est Pt Level 3 (79117) Diagnoses Bacterial vaginosis N76.0; B96.89
--- OUTSIDE RECORDS SUMMARY | 2024-11-11 14:37 | XMS_ITS | Clinical Summary ---
Author Organization [facility] Address [address] [place] [address] Care Team Providers Care Pile Driving Technician Name Role Phone Unknown Primary Care Provider [phone] Allergies No known active allergies Medications No [...] Group Subscriber ID Effective Dates Phone Address [facility] [id number] [place] [address] Care Teams Pile Driving Technician Relationship Specialty Start Date End Date Unknown Unknow Provider Address PCP - General 09/19/17
== END 2024-11-11 12:36 | disposition home or self-care (01) ==
LOC: HO.HWS 12:01
PROVIDERS: PCP Internal Medicine; Visit Provider Obstetrics & Gynecology
DX: N76.0 Acute vaginitis (principal); B96.89 Other specified bacterial agents as the cause of diseases classified elsewhere
CPT/HCPCS: 99213

== ENCOUNTER 2024-11-29 11:45 | Outpatient (AMB) | payer OTHER, SELFPAY ==
--- NOTE | 2024-11-29 12:13 | A.OFFPC_ITS ---
Vital Signs 11/29/24 12:39 Height 5 ft 2 in Weight 151 lb BMI 27.6 BP 100/72 Blood Pressure Location Rt brachial Position Sitting Pulse 70 Pulse Source Pulse Oximeter Temp 98.2 F Temp Source Oral Pulse Oximetry (%) 95 Oxygen Delivery Method Room Air Intake Visit Reasons: PE Intake Note: Pt is here today for her PE: last mammogram 12/01/20, papsmear 02/02/23 Is last menstrual period known: Yes Last menstrual period: 11/27/24 Allergies diphenhydramine [From Benadryl] Adverse Reaction (Verified 11/29/24 13:04) Anxiety, legs getting numb Medication List - Last Reconciled 11/29/24 by Mandi Haines MD eletriptan (Relpax) 40 mg PO BID PRN naproxen (Naprosyn) 500 mg PO BID tizanidine 2 mg PO BID PRN topiramate (Topamax) 25 mg PO DAILY Tobacco use date assessed: 11/29/24 Dental Screening Dental Screen Date: 11/29/24 Did you have a dental visit in the last 12 months?: No Did you have a dental problem in the last 6 months where you did not have access to dental care?: No Was dental information given to patient?: Patient has dentist HPI PE HPI Details 49-year-old lady here today for physical exam. She is up-to-date with her cervical cancer screening, last done in 2022 with benign findings. However she is overdue for her breast cancer screening, last mammogram was done in 2020, and has never had a colonoscopy screening done She sees Neurology for her migraine headache without aura, currently on amitriptyline and topiramate. Complains of sharp pain over left AC joint, no history of trauma, pain worse with abduction of left arm and forward flexion [facility] Medical History (Updated 11/30/24 @ 15:20 by Mandi Haines MD) Vitamin D deficiency Pain in left acromioclavicular joint Mixed dyslipidemia Environmental and seasonal allergies History of 2019 novel coronavirus disease (COVID-19) Hip pain, chronic Borderline high cholesterol IBS (irritable bowel syndrome) Endometrial polyp Migraine without aura Anemia Hx of breast lump Hx of anxiety disorder Hx of seasonal allergies Hx of migraine headaches Hx of gastroesophageal reflux (GERD) Surgical History History of lumpectomy of right breast Hx of tubal ligation History of surgical removal of ganglion cyst Family History Father Hx of anxiety disorder Hx of human immunodeficiency virus I infection Mother Diabetes mellitus Hypertension Maternal Grandfather Diabetes mellitus Hypertension CVD (cardiovascular disease) Paternal Grandmother Hx of glaucoma Hx of acute arthritis Paternal Grandfather Myocardial infarction Social History Housing: Apartment Alcohol intake: current Alcohol intake frequency: a few times a week Patient Tobacco Use Status: Never used Tobacco e-Cigarette/Vaping Use: Never Used Second Hand Smoke Exposure: No Current occupational status: employed Sexual orientation: Straight/Heterosexual Gender identity: Female Cognitive needs: No Hearing needs: No Vision needs: Yes Female Reproductive History Menstrual Age of Menarche: 13 Date of last menstrual period: 11/27/24 Questionnaire PHQ-9 Over the last 2 weeks, how often have you been bothered by any of the following problems? 1. Little interest or pleasure in doing things: nearly every day 2. Feeling down, depressed, or hopeless: more than half the days 3. Trouble falling or staying asleep, or sleeping too much: more than half the days 4. Feeling tired or having little energy: nearly every day 5. Poor appetite or overeating: not at all 6. Feeling bad about yourself - or that you are a failure or have let yourself or your family down: several days 7. Trouble concentrating on things, such as reading the newspaper or watching television: more than half the days 8. Moving or speaking so slowly that other people could have noticed. Or the opposite - being so fidgety or restless that you have been moving around a lot more than usual: not at all 9. Thoughts that you would be better off or of hurting yourself in some way: not at all Total score: 13 Depression Screening Interpretation: Positive Depression Screening Follow-up: Existing condition, In treatment and Community Mental Health Worker F/U (Currently sees her therapist regularly does not want to start any medication) Depression Screening Done: Yes Source: Developed by Phan Dalalet B.W. Jameel, Marco Antonio Guadarrama and colleagues, with an educational darby from [employer]. Thrive Questionnaire Date Thrive assessed: 11/29/24 I am a: Patient What is your living situation today?: I have a steady place to live Within the past 12 months, did the food you bought not last and you didn't have the money to get more?: Never true Within the past 12 months, did you worry whether your food would run out before you got money to buy more?: Never true Do you have trouble paying for medicines?: No Do you have trouble getting transportation to medical appointments?: No Do you have trouble paying your heating and electricity bill?: No Do you have trouble taking care of your child, family member or friend?: No Do you have trouble with day-to-day activities such as bathing, preparing meals, shopping, managing finances, etc.?: No Are you currently unemployed and looking for a job?: No Are you interested in more education?: No Currently or been in a relationship where the following occur: No concerns reported THRIVE Score: 0 AUDIT C Alcohol Use Questionnaire (AUDIT-C) 1. How often do you have a drink containing alcohol?: Monthly or less 2. How many drinks containing alcohol do you have on a typical day when you are drinking?: 1 or 2 3. How often do you have six or more drinks on one occasion?: Never Total Score: 1 LEONARD-7 AMB Questionnaire LEONARD-7 Date LEONARD - 7 assessed: 11/29/24 Feeling nervous, anxious, or on edge: 1 = Several days Not being able to stop or control worryin = More than half the days Worrying too much about different things: 3 = Nearly every day Trouble relaxin = More than half the days Being so restless that it is hard to sit still: 0 = Not at all Becoming easily annoyed or irritable: 3 = Nearly every day Feeling afraid as if something awful might happen: 0 = Not at all Total LEONARD-7 score (0-4 normal; 5-9 mild; 10-14 moderate; 15-21 severe): 11 Source: Developed by Rae Dalal, Marco Antonio Guadarrama and colleagues, with an educational darby from [employer]. LEONARD-7 Assessment Billing LEONARD-7 Assessment Tool: LEONARD-7 Assessment 29821 Review of Systems Const Reports as per HPI and Reports no additional complaints Eyes Denies change in vision ENT Reports no additional complaints Card Reports no additional complaints Resp Reports no additional complaints GI Reports no additional complaints Reports no additional complaints Musc Reports as per HPI and Denies abnormal gait Skin/Breast Denies breast pain, Denies breast mass and Denies rash Neuro Reports no additional complaints and Denies abnormal gait Psych Reports no additional complaints Endo Reports no additional complaints Russell/Lymph Reports no additional complaints Aller/Immun Reports no additional complaints Physical exam (Primary Care) Vital Signs: Last Vital Signs Temp 98.2 F 11/29/24 12:39 Pulse 70 11/29/24 12:39 BP 100/72 11/29/24 12:39 Pulse Ox 95 11/29/24 12:39 Oxygen Delivery Method Room Air 11/29/24 12:39 BMI result Body Mass Index 27.6 Tobacco/Smoking Status: Tobacco use Status Tobacco use date assessed 11/29/24 11/29/24 12:15 Patient Tobacco Use Status Never used Tobacco 11/29/24 12:15 e-Cigarette/Vaping Use Never Used 11/29/24 12:15 PHQ-9: PHQ-9 Score PHQ-9: Total score 13 11/29/24 13:31 Depression Screening Interpretation: Positive Depression Screening Follow-up: Existing condition, In treatment and Community Mental Health Worker F/U (Currently sees her therapist regularly does not want to start any medication) Thrive Assessment: Date of Thrive Assessment Date Thrive assessed 11/29/24 11/29/24 12:46 Currently or been in a relationship where the following occur: No concerns reported Advance Care Planning discussion: Completed/Scanned Date of discussion: 11/29/24 Who was present: Patient Forms completed: Health Care Proxy Time spent: 16-45 minutes Actual minutes spent: 2 Const Nutritional Appearance: average body habitus Orientation/consciousness: patient oriented x3 HENMT Head: Yes normocephalic Ears: external ears normal, TM's normal bilaterally and EAC's normal General nose exam: Normal external nose present Face and sinus: Yes face symmetric Mouth: Normal oral and palatal mucosa present, oropharynx normal and moist mucous membranes Eyes General: appearance normal, both eyes and all related structures Neck Neck: Yes full ROM, Yes no lymphadenopathy and Yes supple Chest Breast/axilla palpation: normal palpation of the breasts Resp Auscultation: clear to auscultation bilaterally Cardio Other: S1-S2 present regular rate and rhythm GI Palpation (GI): Soft to palpation, nontender, no guarding and no masses Auscultation: normal bowel sounds General: Yes no CVA tenderness Back/Spine/Pelvis Back: no CVA tenderness and back tenderness (Slight tenderness over lumbosacral area) Skin General skin exam: no rashes or lesions noted Neuro General: patient oriented x3, moves all extremities, Normal light touch and pain sensation and no focal motor deficits Extrem Other: Tenderness on palpation over left acromioclavicular joint, slightly swollen General: Yes full ROM Psych Appearance: grossly normal and well kempt Mental Status: mental status grossly normal Speech and movement: Normal speech and movement present Affect: normal affect Results Reviewed Results Reviewed: susan: Mary Ann Serrano Age/Sex: 49/F : 1975 Unit#: [id number] Attend Dr: Srinivasa Levy MD Re09/30/24 Status: DEP [facility]F [facility] Disch: SPEC : [id number] THONG: 09/30/24 STATUS: COMP REQ : [id number] RECD: 09/30/[address]: Mandi Haines MD COMP: 09/30/24 ENTERED: 09/30/[address]: Srinivasa Levy MD ORDERED: Met Prof Fast, AST, ALT, Lipid Panel Test Result Flag Reference Sodium 136 135-145 mmol/L Potassium 4.0 3.3-5.1 mmol/L CL 112 H 96-108 mmol/L CO2 21 L 22-29 mmol/L Gap 7 L 12-20 BUN 15 9-16 mg/dL Creat 0.71 0.5-1.4 mg/dL eGFR > 60 Chronic Kidney Disease: Estimated GFR < 60 mL/min/1.73m2 Severe Kidney Disease: Estimated GFR < 15 mL/min/1.73m2 FBS 93 60-99 mg/dL CA 8.6 # 8.4-10.2 mg/dL AST (GOT) 16 5-31 U/L ALT (GPT) 16 0-31 U/L Triglyceride 203 H <150 mg/dL Desirable Triglyceride: less than 150 mg/dL Borderline High Triglyceride 150-199 mg/dL High Triglyceride: 200-499 mg/dL Very High Triglyceride: greater than or equal to 5OO mg/dL Cholesterol 223 H <200 mg/dL Desirable Cholesterol: less than 200 mg/dL Borderline High Cholesterol: 200-239 mg/dL High Cholesterol: greater than 239 mg/dL LDL Calculated 132 H <100 mg/dL Desirable LDL: less than 100 mg/dL Near Optimal/Above Optimal LDL: 110-129 mg/dL Borderline High LDL: 130-159 mg/dL High LDL: 160-189 mg/dL Very High LDL: greater than or equal to 190 mg/dL HDL 51 >40 mg/dL Desirable HDL: greater than 40 mg/dL Note: This HDL assay may give artificially low results in patients with liver disease. Coding Level of Care Code Est Pt Prev Care 40-64y(80675) Diagnoses Annual visit for general adult medical examination with abnormal findings Z00.01 Encounter for screening for malignant neoplasm of colon Z12.11 Fatigue R53.83 Environmental and seasonal allergies J30.89 Heavy menstrual bleeding N92.0 Left shoulder pain M25.512 Migraine without aura G43.009 Mixed dyslipidemia E78.2 Encounter for counseling regarding advance directives Z71.89 Additional Codes Vital Signs *Quality* - Advance Care Planning discussion: Completed/Scanned ([id number]) Vital Signs *Quality* - Time spent: 16-45 minutes ([id number]) LEONARD-7 Assessment Billing - LEONARD-7 Assessment Tool: LEONARD-7 Assessment 88419 ([id number]) Assessment & Plan Assessment & Plan (1) Annual visit for general adult medical examination with abnormal findings: Code(s): Z00.01 - Encounter for general adult medical examination with abnormal findings Plan: Will check appropriate labs. Recommended dental visit every 6 months and r egular eye exams, at least every 2 years. Take adequate calcium in diet and vitamin-D 3 at 2000 IU per cap once a day, in addition to weight-bearing exercises to help maintain good muscle tone and weight control. Instructed to do self-breast exam, and continue with yearly mammograms. , up-to-date with her yearly flu vaccine and Tdap, reminded to get COVID booster. Referred to [facility] Clinic for her initial screening colonoscopy. (2) Encounter for screening for malignant neoplasm of colon: Code(s): Z12.11 - Encounter for screening for malignant neoplasm of colon Plan: Referred to GI Clinic for her screening colonoscopy (3) Fatigue: Code(s): R53.83 - Other fatigue Plan: Ordered CBC, vitamin-D level, and lipid level (4) Environmental and seasonal allergies: Code(s): J30.89 - Other allergic rhinitis Category: Medical Plan: Prescription sent for Azelastine - fluticasone nasal spray, 1-2 sprays per nostril twice a day as needed, and prescription also sent for fexofenadine 180 mg per tablet to take 1 tablet once a day only as needed for nasal congestion and runny nose. (5) Heavy menstrual bleeding: Code(s): N92.0 - Excessive and frequent menstruation with regular cycle Category: Medical Plan: Will check CBC, currently being seen by OBGYN (6) Left shoulder pain: Code(s): M25.512 - Pain in left shoulder Category: Medical Plan: X-ray of left shoulder joint ordered and referral to physical therapy done (7) Migraine without aura: Comment: Followed at [facility] neurology Code(s): G43.009 - Migraine without aura, not intractable, without status migrainosus Category: Medical Plan: Followed by Neurology (8) Mixed dyslipidemia: Code(s): E78.2 - Mixed hyperlipidemia Category: Medical Plan: Continue with adherence to healthy eating habits and regular exercise, but avoid any lifting with left arm. Recheck another fasting lipid panel in six-month (9) Encounter for counseling regarding advance directives: Code(s): Z71.89 - Other specified counseling Plan: Initiated the conversation about Advanced Directives. Advanced Directives help patients prepare for current and future decisions about their medical treatment and place of care. Discussed with patient that it is a process where a patients current condition and prognosis are reviewed, their wishes for information regarding their illness are elicited, and likely medical dilemmas are presented and options discussed. Healthcare proxy form completed today. The form can be amended as needed, reviewed yearly and make changes as needed Orders: Orders XR shoulder LT min 2V 11/29/24 M25.512 - Pain in left shoulder Complete Blood Count Auto Diff 11/29/24 J30.2 - Other seasonal allergic rhinitis, J30.89 - Other allergic rhinitis, R53.83 - Other fatigue, Z86.39 - Personal history of other endocrine, nutritional and metabolic disease Vitamin D 25-OH Total 11/29/24 J30.2 - Other seasonal allergic rhinitis, J30.89 - Other allergic rhinitis, R53.83 - Other fatigue, Z86.39 - Personal history of other endocrine, nutritional and metabolic disease MM tomosynthesis screening BI 11/29/24 Z12.31 - Encounter for screening mammogram for malignant neoplasm of breast Lipid Panel 05/24/25 E78.2 - Mixed hyperlipidemia PT Evaluation and Treatment 11/29/24 M25.512 - Pain in left shoulder Referrals Gastroenterology Referral Z12.11 - Encounter for screening for malignant neoplasm of colon Medications: New azelastine-fluticasone 137-50 mcg/spray administer into each nostril 1 spray intranasal BID 23 grams 1RF J30.89 - Other allergic rhinitis fexofenadine 180 mg PO DAILY 30 tabs 0RF J30.89 - Other allergic rhinitis
[2024-11-29 12:39] VITALS: BP 100/72; PULSE 70; TEMP 36.8; O2SAT 95; BMI 27.6
--- OUTSIDE RECORDS SUMMARY | 2024-11-29 14:34 | XMS_ITS | Clinical Summary ---
Author Organization [facility] Address [address] [place] [address] Care Team Providers Care Fairing Worker Name Role Phone Unknown Primary Care Provider [phone] Allergies No known active allergies Medications No [...] Group Subscriber ID Effective Dates Phone Address [facility] [id number] [place] [address] Care Teams Fairing Worker Relationship Specialty Start Date End Date Unknown Unknow Provider Address PCP - General 09/19/17
== END 2024-11-29 13:31 | disposition home or self-care (01) ==
LOC: HO.HMCC 11:45
PROVIDERS: PCP Internal Medicine; Visit Provider Internal Medicine
DX: Z00.01 Encounter for general adult medical examination with abnormal findings (principal); Z12.11 Encounter for screening for malignant neoplasm of colon; R53.83 Other fatigue; J30.89 Other allergic rhinitis; N92.0 Excessive and frequent menstruation with regular cycle; M25.512 Pain in left shoulder; G43.009 Migraine without aura, not intractable, without status migrainosus; E78.2 Mixed hyperlipidemia; Z71.89 Other specified counseling; Z00.00 Encounter for general adult medical examination without abnormal findings

== ENCOUNTER 2024-11-29 11:45 | Outpatient (REF) | payer OTHER, SELFPAY ==
--- NOTE | ~2024-11-29 | XR_ITS ---
EXAMINATION: XR SHOULDER 2 OR MORE VIEWS LEFT HISTORY: M25.512 - Pain in left shoulder COMPARISON: There are no prior studies available for comparison. FINDINGS: Two views of the left shoulder are submitted. Osseous mineralization is normal. There is no fracture or dislocation. The glenohumeral joint is maintained. There is mild narrowing of the AC joint. There is a soft tissue calcification adjacent to the greater tuberosity of the humerus which is likely related to the rotator cuff. XR/XR shoulder LT min 2V IMPRESSION: Mild narrowing of the AC joint. Probable rotator cuff calcification. Electronically signed by: Jeff Portillo MD 11/29/2024 03:56 PM EDT
[2024-11-29 16:10] LABS: MANUAL DIFF FLAG NO
[2024-11-29 16:14] LABS: Eosinophils Absolute Auto 0.2 X10*3/uL (0.0-0.4); Eosinophils Percent Auto 3.9 % (0-4); Hematocrit 37.1 % (37.0-47.0); Hemoglobin 11.6 g/dl (12.0-16.0); Imm Gran Abs Auto 0.02 X10*3/uL (0.00-0.03); Imm Gran Pct Auto 0.5 % (0.0-0.4); Lymphocytes Absolute Auto 1.4 X10*3/uL (1.2-4.9); Mean Corpuscular HGB Conc 31.3 g/dl (31.0-35.0); Mean Corpuscular Hemoglobin 27.5 pg (27.0-33.0); Mean Corpuscular Volume 87.9 fL (80.0-98.0); Mean Platelet Volume 12.5 fL (9.4-12.3); Monocytes Absolute Auto 0.4 X10*3/uL (0.1-1.2); Monocytes Percent Auto 8.4 % (2-11); Neutrophils Absolute Auto 2.2 x10*3/uL (2.0-8.3); Neutrophils Percent Auto 52.2 % (45-73); Platelet Count 290 X10*3/uL (160-400); Red Blood Count 4.22 X10*6/uL (4.20-5.50); Red Cell Distribution Width 13.7 % (11.0-16.0); White Blood Count 4.2 X10*3/uL (4.8-10.8)
--- OUTSIDE RECORDS SUMMARY | 2024-11-29 16:27 | XMS_ITS | Clinical Summary ---
Author Organization [facility] Address [address] [place] [address] Care Team Providers Care Electric Stop Installer Name Role Phone Unknown Primary Care Provider [phone] Allergies No known active allergies Medications No [...] Group Subscriber ID Effective Dates Phone Address [facility] [id number] [place] [address] Care Teams Electric Stop Installer Relationship Specialty Start Date End Date Unknown Unknow Provider Address PCP - General 09/19/17
[2024-11-29 16:49] LABS: Vitamin D 25-OH Total 13.9 ng/mL (>30)
== END 2024-11-29 11:46 | disposition home or self-care (01) ==
LOC: HO.HMGCX 11:45
PROVIDERS: PCP Internal Medicine; Visit Provider Internal Medicine
DX: Z00.01 Encounter for general adult medical examination with abnormal findings (principal); R53.83 Other fatigue; J30.89 Other allergic rhinitis; N92.0 Excessive and frequent menstruation with regular cycle; M25.512 Pain in left shoulder; G43.009 Migraine without aura, not intractable, without status migrainosus; E78.2 Mixed hyperlipidemia; Z71.89 Other specified counseling; J30.2 Other seasonal allergic rhinitis; Z86.39 Personal history of other endocrine, nutritional and metabolic disease
CPT/HCPCS: 36415; 73030; 82306; 85025; 96127

== ENCOUNTER → 2024-11-29 13:38 | Outpatient (BNV) | payer OTHER, SELFPAY | PROVIDERS: PCP Internal Medicine; Visit Provider Radiology Diagnostic Radiology | DX: M25.512 Pain in left shoulder (principal) | CPT/HCPCS: 73030 ==

== ENCOUNTER 2024-12-15 11:56 | Outpatient (RCR) | payer OTHER, SELFPAY ==
--- NOTE | 2024-12-02 13:31 | MHC.PT.EP ---
[facility] [place] [facility] [place] [facility] [place] Office [address] Shaina Christianson [address] [phone] F: [phone] F: [phone] F: [phone] F: [phone] Physical Therapy Plan of Care Date of Evaluation: 12/02/24 Date of Surgery: N/A Diagnosis: pain in left shoulder (RL) Assessment: pt is a 49 y/o female presenting to physical therapy w/ referring diagnosis of pain in left shoulder. Impairments include pain, decreased range of motion, decreased strength, impaired functional mobility, impaired postural awareness, and altered ambulation mechanics. pt is a good candidate for skilled PT due to age, potential remediation of impairments, typical disease/condition progression and prognosis, comorbidities, and motivation. pt would benefit from skilled PT intervention to provide a tailored strengthening and stretching exercise program, functional training, gait training, postural re-training, neuromuscular re-education, modalities as needed for pain, equipment safety demonstration. Frequency and Duration: The patient will be seen 2x/wk for 4 wks Short Term Goals: pt will be I w/ HEP to promote self-management of condition. pt will improve L shoulder flexion and abduction AROM by at least 15* to promote ease in overhead reaching. Longterm Goals: pt will improve functional IR to at least L4 to promote ease in upper body ADLs. pt will report a statistically significant improvement in self-reported outcome measure, SPADI, to promote return to PLOF. Treatment Plan: Modalities to reduce pain, spasms and effusion. Manual therapy to restore motion and function. Therapeutic exercise to improve strength and flexibility. Neuromuscular re-education for posture and balance. Therapeutic activities to return to functional activities of daily living. Electronically signed by: Vaishali Prasad PT, DPT Please sign and return to therapist. Thank you for your referral.
--- NOTE | 2025-01-03 15:13 | MHC.PT.DC ---
[facility] [place] [facility] [place] [facility] [place] [facility] [address] Shaina Christianson [address] [facility] [phone] F: [phone] F: [phone] F: [phone] F: [phone] Physical Therapy Discharge Report Diagnosis: pain in left shoulder (RL) Date of Surgery: N/A Date of Evaluation: 12/02/24 Date of Discharge: 01/03/25 Treatments to Date: 3 Cancellations to Date: 1 No Shows to Date: 0 Discharge Status: Visit Non-compliance Discharge Summary: The patient attended only 3 of the at least 8 visits recommended. She did not schedule any other follow-ups. She was not reporting much of a change in her shoulder pain at time of last visit. Electronically signed by: Vaishali Prasad PT, DPT Please sign and return to therapist. Thank you for your referral.
== END 2025-01-03 15:13 | disposition home or self-care (01) ==
LOC: HO.PT 11:56
PROVIDERS: PCP Internal Medicine; Visit Provider Internal Medicine
DX: M25.512 Pain in left shoulder (principal)
CPT/HCPCS: 97110; 97140; 97161

== ENCOUNTER → 2025-01-13 11:45 | Outpatient (BNV) | payer OTHER, SELFPAY | PROVIDERS: PCP Internal Medicine; Visit Provider Internal Medicine | DX: Z12.31 Encounter for screening mammogram for malignant neoplasm of breast (principal) | CPT/HCPCS: 77063; 77067 ==

== ENCOUNTER 2025-01-13 11:46 | Outpatient (REF) | payer OTHER, SELFPAY | END 2025-01-13 11:47 | disposition home or self-care (01) | LOC: HO.MAMMO 11:46 | PROVIDERS: PCP Internal Medicine; Visit Provider Internal Medicine | DX: Z12.31 Encounter for screening mammogram for malignant neoplasm of breast (principal) | CPT/HCPCS: 77063; 77067 ==

== ENCOUNTER 2025-02-01 12:10 | Outpatient (AMB) | payer OTHER, SELFPAY ==
[2025-02-01 12:13] VITALS: BP 100/72; BMI 27.4
--- NOTE | 2025-02-01 12:13 | MHC.OFFVIS ---
Vital Signs 02/01/25 12:13 Height 5 ft 2 in Weight 150 lb BMI 27.4 BP 100/72 Intake Visit Reasons: vaginal discharge Allergies diphenhydramine [From Benadryl] Adverse Reaction (Verified 11/29/24 13:04) Anxiety, legs getting numb HPI Comments Details: The patient is presenting complaining of vaginal discharge associated with foul odor, no other associated symptoms, vaginal itching or any other complaint . The patient had 2 previous episodes of BV since 09/17 [facility] Medical History Vitamin D deficiency Pain in left acromioclavicular joint Mixed dyslipidemia Environmental and seasonal allergies History of 2019 novel coronavirus disease (COVID-19) Hip pain, chronic Borderline high cholesterol IBS (irritable bowel syndrome) Endometrial polyp Migraine without aura Anemia Hx of breast lump Hx of anxiety disorder Hx of seasonal allergies Hx of migraine headaches Hx of gastroesophageal reflux (GERD) Surgical History History of lumpectomy of right breast Hx of tubal ligation History of surgical removal of ganglion cyst Family History Father Hx of anxiety disorder Hx of human immunodeficiency virus I infection Mother Diabetes mellitus Hypertension Maternal Grandfather Diabetes mellitus Hypertension CVD (cardiovascular disease) Paternal Grandmother Hx of glaucoma Hx of acute arthritis Paternal Grandfather Myocardial infarction Social History Housing: Apartment Alcohol intake: current Alcohol intake frequency: a few times a week Patient Tobacco Use Status: Never used Tobacco e-Cigarette/Vaping Use: Never Used Second Hand Smoke Exposure: No Current occupational status: employed Sexual orientation: Straight/Heterosexual Gender identity: Female Cognitive needs: No Hearing needs: No Vision needs: Yes Female Reproductive History Menstrual Age of Menarche: 13 Physical Exam Vital Signs: Last Vital Signs BP 100/72 02/01/25 12:13 BMI result Body Mass Index 27.4 Results AMB Test Urine AMB Test Urine Negative Last Edit by Sylvia Hassan CMA on 02/01/25 12:37 Results Reviewed Results Reviewed: Laboratory Last Values [facility] Clinic Negative 02/01/25 12:32 Assessment & Plan Assessment & Plan (1) Bacterial vaginosis: Comment: Recurrent Code(s): N76.0 - Acute vaginitis; B96.89 - Other specified bacterial agents as the cause of diseases classified elsewhere Category: Medical Plan: UPT done in the office was negative. GC/CT with BV panel collected. Discussed with the patient that she fits criteria for recurrent BV, recommended CDC guidelines for recurrent BV treatment with metronidazole vaginal gel 0.75% twice weekly for 3 months, in addition to the use of condoms during the treatment. Explained to the patient that treatment of the nail partner is not recommended. Instructions were given the patient to call in case symptoms persist or recur. All questions answered, the patient verbalized understanding Orders: Orders CT NG by PCR Today N89.8 - Other specified noninflammatory disorders of vagina Bacterial Vaginosis Panel Today N89.8 - Other specified noninflammatory disorders of vagina AMB HCG Urine Test Today Z32.02 - Encounter for test, result negative Coding Level of Care Code Est Pt Level 3 (48056) Diagnoses Bacterial vaginosis N76.0; B96.89
--- OUTSIDE RECORDS SUMMARY | 2025-02-01 13:46 | XMS_ITS | Clinical Summary ---
Author Organization [facility] Address [address] [place] [address] Care Team Providers Care Multiplex Operator Name Role Phone Unknown Primary Care Provider [phone] Allergies No known active allergies Medications No known medications Social History Tobacco Use Types Packs/Day Years Used Date Smoking Tobacco: Some Days Alcohol Use Standard Drinks/Week Comments Yes 0 (1 standard drink = 0.6 oz pur e alcohol) Comments No Sex and Gender Information Value Date Recorded Sex Assigned at Not on file Legal Sex Female 12:38 PM EST Gender Identity Not on file Sexual Orientation [...] (Ages 21-65) 1998 Mammogram 2017 Colonoscopy 2022 COVID-19 Vaccine ( - 2023-2 5 season) 2024 Influenza Vaccine 03/24/2025 Pneumococcal Vaccine: Pediat bob (0-5 Years) and At-Risk Patients (6 to 49 Years) Aged Out No longer eligible b ased on patient's age to complete this topic Insurance [facility] Care Teams Multiplex Operator Relationship Specialty Start Date End Date Unknown Unknow Provider Address PCP - General 09/19/17
== END 2025-02-01 12:37 | disposition home or self-care (01) ==
LOC: HO.HWS 12:10
PROVIDERS: PCP Internal Medicine; Visit Provider Obstetrics & Gynecology
DX: N76.0 Acute vaginitis (principal); B96.89 Other specified bacterial agents as the cause of diseases classified elsewhere; Z32.02 Encounter for pregnancy test, result negative
CPT/HCPCS: 99213

== ENCOUNTER 2025-02-01 12:10 | Outpatient (REF) | payer OTHER, SELFPAY ==
[2025-02-01 16:19] LABS: Bacterial Vaginosis PCR NEGATIVE (Negative); Candida Group PCR NOT DETECTED (Not Detect); Candida glab krusei PCR NOT DETECTED (Not Detect); Trichomonas vaginalis PCR NOT DETECTED (Not Detect)
[2025-02-01 16:52] LABS: CT PCR NOT DETECTED (Not Detect.); NG PCR NOT DETECTED (Not Detect.)
== END 2025-02-01 12:11 | disposition home or self-care (01) ==
LOC: HO.LNP 12:10
PROVIDERS: PCP Internal Medicine; Visit Provider Obstetrics & Gynecology
DX: N89.8 Other specified noninflammatory disorders of vagina (principal)
CPT/HCPCS: 81025; 81515; 87491; 87591

== ENCOUNTER 2025-04-11 08:22 | Outpatient (REF) | payer OTHER, SELFPAY ==
--- OUTSIDE RECORDS SUMMARY | 2025-04-11 09:04 | XMS_ITS | Clinical Summary ---
Author Organization [facility] Address [address] [place] [address] Care Team Providers Care Assistant Branch Manager Name Role Phone Unknown Primary Care Provider [phone] Allergies No known active allergies Medications No [...] 109 09/19/2017 12:49 PM EST Temperature 35 C (95 F) 09/19/2017 12:49 PM EST Respiratory Rate 20 [...] patient's age to complete this topic Insurance [facility] Care Teams Assistant Branch Manager Relationship Specialty Start Date End Date Unknown Unknow Provider Address PCP - General 09/19/17
--- OUTSIDE RECORDS SUMMARY | 2025-04-11 09:04 | XMS_ITS | Clinical Summary ---
Author Organization [facility] Address [address] [facility] [address] [place] [phone] Phone Care Team Providers Care Stonecutter Name Role Phone Pcp, Unknown Primary Care Provider Unavailabl e Allergies No known active allergies Social History Tobacco Use Types Packs/Day Years Used Date Smoking Tobacco: Never Smokeless Tobacco: Never Tobacco Cessation:Counseling Given: Not Answered Alcohol Use Standard Drinks/Week Comments Yes 0 (1 standard drink = 0.6 oz pur e alcohol) Education Answer Date Recorded Are you interested in more education? Not on te e 12/20/2022 Are you concerned about learning? Not on file 12/20/2022 No 12/20/2022 No 12/20/2022 Digital Access Answer Date Recorded No 01/20/2023 No 01/20/2023 Reliable internet access at home? Not on file 01/20/2023 Device with a working camera? Not on file Intimate Partner Violence Answer Date R ecorded Are you denied basic needs s uch as food, clothing, or medical care? No 11/23/2022 In the past 12 months have y ou been in a relationship with a person who hurts, threatens, or tries to control you? No 11/23/2022 Are you denied basic needs s uch as food, clothing, or medical care? No 11/23/2022 In the past 12 months have y ou been in a relationship with a person who hurts, threatens, or tries to control you? No 11/23/2022 Comments Unknown Sex and Gender Information Value Date Recorded Sex Assigned at Female 11/23/2022 3:41 PM EDT Legal Sex Female 3:39 PM EDT Gender Identity Female 11/23/2022 3:41 PM EDT Sexual Orientation Not on file Last Filed Vital Signs Vital Sign Reading Time Taken Comments Blood Pressure 119/82 11/23/2022 6:15 PM EDT Pulse 89 11/23/2022 6:15 PM EDT Temperature 36.3 C (97.4 F) 11/23/2022 6:15 PM EDT Respiratory Rate 16 11/23/2022 6:15 PM EDT Oxygen Saturation 100% 11/23/2022 6:15 PM EDT Inhaled Oxygen Concentration - - Weight 67.1 kg (148 lb) 11/23/2022 3:42 PM EDT Height 160 cm (5' 3 ) 11/23/2022 3:42 PM EDT Body Mass Index 26.22 11/23/2022 3:42 PM EDT Plan of Treatment Not on file Medical Devices Not on file Insurance [facility] * Guarantor: Mary Ann Serrano Account Type Relation to Patient Date of Phone Billing Address Personal/Family Self [address] [place] [address] [facility] * Guarantor: Mary Ann Serrano Account Type Relation to Patient Date of Phone Billing Address Personal/Family Self [address] [place] [address] [facility] Care Teams Stonecutter Relationship Specialty Start Date End Date Pcp, Unknown PCP - General 11/23/22 Additional Source Comments The information contained in this document represents components of the legal health record. It is not the complete legal health record.[facility]
[2025-04-11 10:52] LABS: MANUAL DIFF FLAG NO
[2025-04-11 11:04] LABS: Hematocrit 37.6 % (37.0-47.0); Hemoglobin 11.8 g/dl (12.0-16.0); Mean Corpuscular HGB Conc 31.4 g/dl (31.0-35.0); Mean Corpuscular Hemoglobin 27.6 pg (27.0-33.0); Mean Corpuscular Volume 88.1 fL (80.0-98.0); Red Blood Count 4.27 X10*6/uL (4.20-5.50); White Blood Count 3.8 X10*3/uL (4.8-10.8)
[2025-04-11 11:05] LABS: Imm Gran Abs Auto 0.01 X10*3/uL (0.00-0.03); Imm Gran Pct Auto 0.3 % (0.0-0.4); Lymphocytes Absolute Auto 1.8 X10*3/uL (1.2-4.9); NRBC Abs Auto 0.000 X10*3/uL (0.0-0.012); NRBC Pct Auto 0.0 /100WBC (0.0-0.2); Platelet Count 273 X10*3/uL (160-400)
[2025-04-11 11:21] LABS: Cholesterol 258 mg/dL (<200); HDL Cholesterol 48 mg/dL (>40); Iron 59 mcg/dL (30-160); Percent Iron Saturation 16 % (15-50); Total Iron Binding Capacity 366 mcg/dL (228-428); Triglycerides 330 mg/dL (<150); Unsaturated Iron Binding 307 ug/dL
== END 2025-04-11 08:23 | disposition home or self-care (01) ==
LOC: HO.10HDL 08:22
PROVIDERS: Visit Provider Internal Medicine
DX: E78.2 Mixed hyperlipidemia (principal); E55.9 Vitamin D deficiency, unspecified; N92.0 Excessive and frequent menstruation with regular cycle; D64.9 Anemia, unspecified
CPT/HCPCS: 36415; 80061; 82306; 83540; 85025

== ENCOUNTER 2025-04-18 11:38 | Outpatient (REF) | payer OTHER, SELFPAY ==
[2025-04-18 20:50] LABS: Bacterial Vaginosis PCR POSITIVE (Negative); Candida Group PCR NOT DETECTED (Not Detect); Candida glab krusei PCR NOT DETECTED (Not Detect); Trichomonas vaginalis PCR NOT DETECTED (Not Detect)
[2025-04-18 22:24] LABS: CT PCR NOT DETECTED (Not Detect.); NG PCR NOT DETECTED (Not Detect.)
== END 2025-04-18 11:39 | disposition home or self-care (01) ==
LOC: HO.LNP 11:38
PROVIDERS: PCP Internal Medicine; Visit Provider Obstetrics & Gynecology
DX: N76.0 Acute vaginitis (principal); B96.89 Other specified bacterial agents as the cause of diseases classified elsewhere
CPT/HCPCS: 81515; 87491; 87591

== ENCOUNTER 2025-04-18 11:38 | Outpatient (AMB) | payer OTHER, SELFPAY ==
[2025-04-18 11:46] VITALS: BMI 27.4
--- NOTE | 2025-04-18 11:46 | A.OFFVIS_ITS ---
Vital Signs 04/18/25 11:46 Height 5 ft 2 in Weight 150 lb BMI 27.4 Intake Visit Reasons: vaginal odor Industrial Maintenance Electrician Required: No Information Interpreted: non-clinical & clinical Revolving Field Assembler: Revolving Field Assembler Present (Sylvia PRESCOTT) Accompanied by: Self / Same As Patient Allergies diphenhydramine (From Benadryl) Adverse Reaction (Verified 04/18/25 11:47) Anxiety, legs getting numb HPI Comments Details: The patient is presenting complaining of vaginal discharge associated with foul odor, no other associated symptoms, vaginal itching or any other complaint last BV episode was in 11/15 positive, the patient was treated with metronidazole for 7 days PFSH Medical History Vitamin D deficiency Pain in left acromioclavicular joint Mixed dyslipidemia Environmental and seasonal allergies History of 2019 novel coronavirus disease (COVID-19) Hip pain, chronic Borderline high cholesterol IBS (irritable bowel syndrome) Endometrial polyp Migraine without aura Anemia Hx of breast lump Hx of anxiety disorder Hx of seasonal allergies Hx of migraine headaches Hx of gastroesophageal reflux (GERD) Surgical History History of lumpectomy of right breast Hx of tubal ligation History of surgical removal of ganglion cyst Family History Father Hx of anxiety disorder Hx of human immunodeficiency virus I infection Mother Diabetes mellitus Hypertension Maternal Grandfather Diabetes mellitus Hypertension CVD (cardiovascular disease) Paternal Grandmother Hx of glaucoma Hx of acute arthritis Paternal Grandfather Myocardial infarction Social History Housing: Apartment Alcohol intake: current Alcohol intake frequency: a few times a week Patient Tobacco Use Status: Never used Tobacco e-Cigarette/Vaping Use: Never Used Second Hand Smoke Exposure: No Current occupational status: employed Sexual orientation: Straight/Heterosexual Gender identity: Female Cognitive needs: No Hearing needs: No Vision needs: Yes Female Reproductive History Menstrual Age of Menarche: 13 Review of Systems Const All systems reviewed & are unremarkable except as noted in HPI and below Physical Exam Vital Signs: BMI result Body Mass Index 27.4 General: Yes no CVA tenderness External Female Exam: normal external appearance and normal appearance of the urethra Speculum Exam - Vagina: normal appearance of the vagina, normal palpation, no lesions and no masses Speculum Exam - Cervix: normal appearance of the cervix, normal palpation, no lesions, no masses and nontender Bimanual exam- vagina & uterus: normal bimanual exam, normal palpation, uterine size normal, normal palpation, uterine shape normal, No Cervical tenderness present and non-tender Bimanual Exam- Adnexa, other: normal adnexae Back/Spine/Pelvis Back: no CVA tenderness Assessment & Plan Assessment & Plan (1) Bacterial vaginosis: Comment: Recurrent Code(s): N76.0 - Acute vaginitis; B96.89 - Other specified bacterial agents as the cause of diseases classified elsewhere Category: Medical Plan: GC and chlamydia cultures with BV panel taken. P will treat with clindamycin 2% 5 g dose intravaginally at bedtime for 7 days, Instructions given to the patient to refrain from sexual activity or to use condoms consistently and correctly during the BV treatment regimen, not to douch, it might increase the risk for relapse, and to call if symptoms persist or recur. Medications: New clindamycin phosphate 2% One application full, 5 g, vaginally at bedtime for 7 nights 1 appful vaginal BEDTIME 40 grams 0RF 7 days Coding Level of Care Code Est Pt Level 3 (27633) Diagnoses Bacterial vaginosis N76.0; B96.89
--- OUTSIDE RECORDS SUMMARY | 2025-04-18 12:34 | XMS_ITS | Clinical Summary ---
Author Organization [facility] Address [address] [place] [address] Care Team Providers Care Manager Project Management Name Role Phone Unknown Primary Care Provider [phone] Allergies No known active allergies Medications No [...] 1998 Mammogram 2017 Colonoscopy 2022 COVID-19 Vaccine (1 - 2023-2 5 season) 2024 Influenza Vaccine 03/24/2025 Pneumococcal Vaccine: Pediat bob (0-5 Years) and At-Risk Patients (6 to 49 Years) Aged Out No longer eligible b ased on patient's age to complete this topic Insurance [facility] Care Teams Manager Project Management Relationship Specialty Start Date End Date Unknown Unknow Provider Address PCP - General 09/19/17
--- OUTSIDE RECORDS SUMMARY | 2025-04-18 12:34 | XMS_ITS | Clinical Summary ---
Author Organization [facility] Address [address] [facility] [address] [place] [phone] Phone Care Team Providers Care Poll Clerk Name Role Phone Pcp, Unknown Primary Care [...] file Medical Devices Not on file Insurance [facility] * Guarantor: Mary Ann Serrano Account Type Relation to Patient Date of Phone Billing Address Personal/Family Self [address] [place] [address] [facility] * Guarantor: Mary Ann Serrano Account Type Relation to Patient Date of Phone Billing Address Personal/Family Self [address] [place] [address] [facility] Care Teams Poll Clerk Relationship Specialty Start Date End Date Pcp, Unknown PCP - General 11/23/22 Additional Source Comments The information contained in this document represents components of the legal health record. It is not the complete legal health record.[facility]
== END 2025-04-18 12:12 | disposition home or self-care (01) ==
LOC: HO.HWS 11:38
PROVIDERS: PCP Internal Medicine; Visit Provider Obstetrics & Gynecology
DX: N76.0 Acute vaginitis (principal); B96.89 Other specified bacterial agents as the cause of diseases classified elsewhere
CPT/HCPCS: 99213

== ENCOUNTER 2025-05-03 07:55 | Outpatient (AMB) | payer OTHER, SELFPAY ==
[2025-05-03 07:59] VITALS: BP 112/58; PULSE 72; O2SAT 100; BMI 27.2
--- NOTE | 2025-05-03 07:59 | MHC.OFFVIS ---
Vital Signs 05/03/25 07:59 Height 5 ft 2 in Weight 149 lb BMI 27.2 BP 112/58 L Blood Pressure Location Rt brachial Position Sitting Pulse 72 Pulse Source Pulse Oximeter Pulse Oximetry (%) 100 Oxygen Delivery Method Room Air Intake Visit Reasons: Colonoscopy Screening Intake Note: New pt for initial colo screening. CC: C.O. IBS-D chronic sx. Pt states that she saw [facility] years ago but never went back. Pt also has intermittent GERD but does not take anything at this time. Lavatory Attendant Required: No Accompanied by: Self / Same As Patient Allergies diphenhydramine (From Benadryl) Adverse Reaction (Verified 05/03/25 08:00) Anxiety, legs getting numb Medication List - Last Reconciled 05/03/25 by Nery Barrera, [facility]- azelastine-fluticasone 137-50 mcg/spray 1 spray intranasal BID eletriptan (Relpax) 40 mg PO BID PRN fexofenadine 180 mg PO DAILY fremanezumab-vfrm (Ajovy) mg subcut naproxen (Naprosyn) 500 mg PO BID tizanidine 2 mg PO BID PRN topiramate (Topamax) 25 mg PO DAILY HPI HPI Colonoscopy Screening: Details: 49 year old? with past medical history of dyslipidemia, seasonal allergies, IBS, migraine is female here today for pre colonoscopy screening.? Patient was sent to us by her PCP.? This is her first colonoscopy screening.? Patient was diagnosed years ago with IBS. Postprandial diarrhea frequently. Patient also reports acid reflux few times a week. Patient is taking omeprazole as needed.? Denies any personal or family history of gastrointestinal disease, colon polyps, or CRC.? Denies history of difficulty with sedation or anesthesia in the past.? Negative for history of sleep apnea.? Denies any history of cardiac, renal, pulmonary, or hepatic disease.?? No history of infectious? diseases like hepatitis A, B, C, HIV or tuberculosis.? Patient is not on any anticoagulation [facility] Medical History Vitamin D deficiency Pain in left acromioclavicular joint Mixed dyslipidemia Environmental and seasonal allergies History of 2019 novel coronavirus disease (COVID-19) Hip pain, chronic Borderline high cholesterol IBS (irritable bowel syndrome) Endometrial polyp Migraine without aura Anemia Hx of breast lump Hx of anxiety disorder Hx of seasonal allergies Hx of migraine headaches Hx of gastroesophageal reflux (GERD) Surgical History History of lumpectomy of right breast Hx of tubal ligation History of surgical removal of ganglion cyst Family History Father Hx of anxiety disorder Hx of human immunodeficiency virus I infection Mother Diabetes mellitus Hypertension Maternal Grandfather Diabetes mellitus Hypertension CVD (cardiovascular disease) Paternal Grandmother Hx of glaucoma Hx of acute arthritis Paternal Grandfather Myocardial infarction Social History Housing: Apartment Alcohol intake: current Alcohol intake frequency: a few times a week Patient Tobacco Use Status: Never used Tobacco e-Cigarette/Vaping Use: Never Used Second Hand Smoke Exposure: No Current occupational status: employed Sexual orientation: Straight/Heterosexual Gender identity: Female Cognitive needs: No Hearing needs: No Vision needs: Yes Female Reproductive History Menstrual Age of Menarche: 13 Review of Systems Const Denies weight gain and Denies weight loss ENT Reports no additional complaints, Denies dysphagia and Denies odynophagia Card Reports no additional complaints Resp Reports no additional complaints GI Denies abdominal pain, Denies belching, Denies melena, Denies bloating, Denies change in bowel habits, Denies dysphagia, Denies excessive flatus, Denies dyspepsia, Reports heartburn, Denies diarrhea, Reports loose stools, Denies nausea, Denies odynophagia and Denies vomiting Reports no additional complaints Musc Reports no additional complaints Neuro Reports no additional complaints Psych Reports no additional complaints Endo Reports no additional complaints Physical Exam Vital Signs: Last Vital Signs Pulse 72 05/03/25 07:59 BP 112/58 L 05/03/25 07:59 Pulse Ox 100 05/03/25 07:59 Oxygen Delivery Method Room Air 05/03/25 07:59 BMI result Body Mass Index 27.2 Const General: healthy appearing, no acute distress and well developed Nutritional Appearance: well nourished Orientation/consciousness: patient oriented x3 Resp Effort & Inspection: normal respiratory effort, able to speak in complete sentences, no tracheal deviation and symmetric chest movement Auscultation: clear to auscultation bilaterally Cardio Rate: regular rate GI Inspection: Yes normal to inspection and No distended Palpation (GI): Soft to palpation, not firm, nontender and No hepatosplenomegaly present Auscultation: normal bowel sounds General: Yes no CVA tenderness Back/Spine/Pelvis Back: no CVA tenderness Skin General skin exam: elasticity normal, turgor normal and dry skin Neuro General: patient oriented x3 Psych Appearance: grossly normal Mental Status: mental status grossly normal Assessment & Plan Assessment & Plan (1) IBS (irritable bowel syndrome): Code(s): K58.9 - Irritable bowel syndrome, unspecified Category: Medical (2) Screen for colon cancer: Code(s): Z12.11 - Encounter for screening for malignant neoplasm of colon Plan Patient denies any cardiac or respiratory symptoms. Patient reports IBS. Discussed with patient low FODMAP diet. List of food recommended as well as list of food to avoid given to patient. Patient was encouraged to take fiber supplements to help her bulk her stools. Patient reports acid reflux several times a week. Avoid dietary triggers and late night snacking. Staying upright for minimum 3 hours after meals discussed with patient. Patient will take omeprazole daily. I will send her for upper endoscopy as well.? Denies any issues with anesthesia in the past.? Denies any history of sleep apnea.? No history infectious diseases in the past or present.? Not on any anticoagulation therapy.? No family or personal history of colon cancer or polyps.? Patient denies melena, hematochezia, unintentional weight loss or ribbon like stools.? Discussed at length the pre-procedure,? prep, diet & medications as well as what to expect prior, during and after the procedure.?? Stressed the importance of good bowel prep.? Recommended the use of Vaseline or Calmoseptine OTC & baby wipes with bowel movements to promote comfort.? ?Patient verbalizes understanding and agrees to plan of care.? She was given the opportunity to ask questions and all questions answered.? We will see her after the procedure.? Medications: New polyethylene glycol 3350 (Miralax) As directed by gastroenterology department at [facility] 238 grams PO ONCE 238 grams 0RF Z12.11 - Encounter for screening for malignant neoplasm of colon bisacodyl (Dulcolax (bisacodyl)) take 4 tabs at noon the day before your colonoscopy 20 mg (4 x 5 mg) PO ONCE 4 tabs 0RF constipation 1 day Z12.11 - Encounter for screening for malignant neoplasm of colon omeprazole 20 mg PO DAILY 90 caps 2RF K21.9 - Gastro-esophageal reflux disease without esophagitis Coding Level of Care Code New Pt Level 3 (54798) Diagnoses IBS (irritable bowel syndrome) K58.9 Screen for colon cancer Z12.11 Time Spent (min) 40 Comment 30 minutes spent with patient and additional 10 minutes spent reviewing her records
--- OUTSIDE RECORDS SUMMARY | 2025-05-03 08:01 | XMS_ITS | Clinical Summary ---
Author Organization [facility] Address [address] [place] [address] Care Team Providers Care Siebel Crm Developer Name Role Phone Unknown Primary Care Provider [phone] Allergies No known active allergies Medications No [...] 1998 Mammogram 2017 Colonoscopy 2022 Influenza Vaccine 03/24/2025 COVID-19 Vaccine (1 - 2023-2 5 season) 2025 Pneumococcal Vaccine: Pediat bob (0-5 Years) and At-Risk Patients (6 to 49 Years) Aged Out No longer eligible b ased on patient's age to complete this topic Insurance [facility] Care Teams Siebel Crm Developer Relationship Specialty Start Date End Date Unknown Unknow Provider Address PCP - General 09/19/17
--- OUTSIDE RECORDS SUMMARY | 2025-05-03 08:01 | XMS_ITS | Clinical Summary ---
Author Organization [facility] Address [address] [facility] [address] [place] [address] Phone Care Team Providers Care Political Research Scientist Name Role Phone Pcp, Unknown Primary Care [...] file Medical Devices Not on file Insurance [facility] * Guarantor: Mary Ann Serrano Account Type Relation to Patient Date of Phone Billing Address Personal/Family Self [address] [place] [address] [facility] * Guarantor: Mary Ann Serrano Account Type Relation to Patient Date of Phone Billing Address Personal/Family Self [address] [place] [address] [facility] Care Teams Political Research Scientist Relationship Specialty Start Date End Date Pcp, Unknown PCP - General 11/23/22 Additional Source Comments The information contained in this document represents components of the legal health record. It is not the complete legal health record.[facility]
== END 2025-05-03 09:00 | disposition home or self-care (01) ==
LOC: HO.HGI 07:55
PROVIDERS: PCP Internal Medicine; Visit Provider Nurse Practitioner Family
DX: Z01.818 Encounter for other preprocedural examination (principal); Z12.11 Encounter for screening for malignant neoplasm of colon; K58.9 Irritable bowel syndrome, unspecified
CPT/HCPCS: S0285

== ENCOUNTER 2025-05-31 11:20 | Outpatient (REF) | payer OTHER, SELFPAY ==
[2025-05-31 17:10] LABS: Bacterial Vaginosis PCR NEGATIVE (Negative); Candida Group PCR DETECTED (Not Detect); Candida glab krusei PCR NOT DETECTED (Not Detect); Trichomonas vaginalis PCR NOT DETECTED (Not Detect)
[2025-05-31 17:41] LABS: CT PCR NOT DETECTED (Not Detect.); NG PCR NOT DETECTED (Not Detect.)
== END 2025-05-31 11:21 | disposition home or self-care (01) ==
LOC: HO.LNP 11:20
PROVIDERS: PCP Internal Medicine; Visit Provider Advanced Practice Midwife
DX: N89.8 Other specified noninflammatory disorders of vagina (principal); N90.89 Other specified noninflammatory disorders of vulva and perineum; Z20.2 Contact with and (suspected) exposure to infections with a predominantly sexual mode of transmission; Z98.51 Tubal ligation status; Z79.899 Other long term (current) drug therapy
CPT/HCPCS: 81515; 87491; 87591

== ENCOUNTER 2025-05-31 11:20 | Outpatient (AMB) | payer OTHER, SELFPAY ==
--- NOTE | 2025-05-31 11:40 | MHC.OFFVIS ---
Vital Signs 05/31/25 11:44 Height 5 ft 2 in Weight 150 lb BMI 27.4 BP 102/74 Blood Pressure Location Rt brachial Position Sitting Intake Visit Reasons: vaginal discharge Intake Note: white vaginal discharge for a week and irritation Sterilisation Technician Required: No Information Interpreted: non-clinical & clinical Certified Master Safecracker: Certified Master Safecracker Present (Erica) Accompanied by: Self / Same As Patient Allergies diphenhydramine (From Benadryl) Adverse Reaction (Verified 05/31/25 11:45) Anxiety, legs getting numb Medication List - Last Reconciled 05/31/25 by Vaishali Lopez LPN azelastine-fluticasone 137-50 mcg/spray 1 spray intranasal BID bisacodyl (Dulcolax (bisacodyl)) 20 mg (4 x 5 mg) PO ONCE 1 day eletriptan (Relpax) 40 mg PO BID PRN fexofenadine 180 mg PO DAILY fremanezumab-vfrm (Ajovy) mg subcut metronidazole 500 mg PO BID 7 days naproxen (Naprosyn) 500 mg PO BID omeprazole 20 mg PO DAILY polyethylene glycol 3350 (Miralax) 238 grams PO ONCE tizanidine 2 mg PO BID PRN topiramate (Topamax) 25 mg PO DAILY Is last menstrual period known: Yes Last menstrual period: 05/05/25 Do you need a note to return to daycare/school/sports/work: No HPI Comments Details: Patient is here today with concerns about reoccurring BV symptoms she admits to increased discharge and external irritation. She denies any pelvic pain. She has used creams in the past and felt a irritated her, prefers to have oral dosing. She also reports two skin growth on the right labia that are irritating and occasionally bleeds, she would like to have them removed. [facility] Medical History Vitamin D deficiency Pain in left acromioclavicular joint Mixed dyslipidemia Environmental and seasonal allergies History of 2019 novel coronavirus disease (COVID-19) Hip pain, chronic Borderline high cholesterol IBS (irritable bowel syndrome) Endometrial polyp Migraine without aura Anemia Hx of breast lump Hx of anxiety disorder Hx of seasonal allergies Hx of migraine headaches Hx of gastroesophageal reflux (GERD) Surgical History History of lumpectomy of right breast Hx of tubal ligation History of surgical removal of ganglion cyst Family History Father Hx of anxiety disorder Hx of human immunodeficiency virus I infection Mother Diabetes mellitus Hypertension Maternal Grandfather Diabetes mellitus Hypertension CVD (cardiovascular disease) Paternal Grandmother Hx of glaucoma Hx of acute arthritis Paternal Grandfather Myocardial infarction Social History Housing: Apartment Alcohol intake: current Alcohol intake frequency: a few times a week Patient Tobacco Use Status: Never used Tobacco e-Cigarette/Vaping Use: Never Used Second Hand Smoke Exposure: No Current occupational status: employed Sexual orientation: Straight/Heterosexual Gender identity: Female Cognitive needs: No Hearing needs: No Vision needs: Yes Female Reproductive History Menstrual Age of Menarche: 13 Date of last menstrual period: 05/05/25 control method: permanent sterilization Total pregnancies: 2 Number of Living Children: 3 Date of last pap smear: 02/02/23 History of abnormal pap smear: No Date of Mammogram: 01/13/25 History of abnormal mammogram: No Review of Systems Const All systems reviewed & are unremarkable except as noted in HPI and below Physical Exam Vital Signs: Last Vital Signs BP 102/74 05/31/25 11:44 BMI result Body Mass Index 27.4 Const General: cooperative, healthy appearing and no acute distress Orientation/consciousness: patient oriented x3 GI Inspection: Yes normal to inspection Palpation (GI): Soft to palpation and Other GI palpation findings present (Nontender) Rectal Exam - Female: visual inspection normal Other: Upper right labial- fleshy lesions appear like skin tags General: Yes bladder normal to palpation External Female Exam: normal appearance of the urethra Speculum Exam - Vagina: normal appearance of the vagina, normal palpation and abnormal vaginal discharge frothy Speculum Exam - Cervix: normal appearance of the cervix and normal palpation Bimanual exam- vagina & uterus: normal bimanual exam, normal palpation, uterine size normal, bladder normal to palpation, normal palpation, uterine shape normal and non-tender Bimanual Exam- Adnexa, other: normal adnexae Neuro General: patient oriented x3 Assessment & Plan Assessment & Plan (1) Vaginal discharge: Code(s): N89.8 - Other specified noninflammatory disorders of vagina Plan: BV panel, GC chlamydia obtained, await results for final plan of care. Rx for oral dosing for BV sent to pharmacy. The patient expressed understanding and agreement with the plan of care. All of her questions and concerns were addressed to the best of my ability. (2) Vulvar lesion: Code(s): N90.89 - Other specified noninflammatory disorders of vulva and perineum Plan Discuss findings, recommended she is follow up with the MD for removal consideration. The patient expressed understanding and agreement with the plan of care. All of her questions and concerns were addressed to the best of my ability. This note is constructed using voice recognition software. While every effort has been made to ensure accuracy, silk screen operator errors may have been included. Orders: Orders CT NG by PCR Vag/Cerv Today Z11.3 - Encounter for screening for infections with a predominantly sexual mode of transmission Bacterial Vaginosis Panel Today Z11.3 - Encounter for screening for infections with a predominantly sexual mode of transmission Medications: Refilled metronidazole 500 mg PO BID 14 tabs 1RF 7 days Coding Level of Care Code Est Pt Level 3 (98954) Diagnoses Vaginal discharge N89.8 Vulvar lesion N90.89
[2025-05-31 11:44] VITALS: BP 102/74; BMI 27.4
== END 2025-05-31 12:13 | disposition home or self-care (01) ==
PROVIDERS: PCP Internal Medicine; Visit Provider Advanced Practice Midwife
DX: N89.8 Other specified noninflammatory disorders of vagina (principal); N90.89 Other specified noninflammatory disorders of vulva and perineum
CPT/HCPCS: 99213

== ENCOUNTER 2025-06-19 08:12 | Day surgery (SDC) | payer OTHER, SELFPAY ==
--- OUTSIDE RECORDS SUMMARY | 2025-05-17 17:06 | XMS_ITS | Clinical Summary ---
Author Organization [facility] Address [address] [place] [phone] Phone Care Team Providers Care Shaft Mechanic Name Role Phone Pcp, Unknown Primary Care [...] file Medical Devices Not on file Insurance [employer] * Guarantor: Mary Ann Serrano Account Type Relation to Patient Date of Phone Billing Address Personal/Family Self [address] [place] [address] [facility] * Guarantor: Mary Ann Serrano Account Type Relation to Patient Date of Phone Billing Address Personal/Family Self [address] [place] [address] [facility] Care Teams Shaft Mechanic Relationship Specialty Start Date End Date Pcp, Unknown PCP - General 11/23/22 Additional Source Comments The information contained in this document represents components of the legal health record. It is not the complete legal health record.[facility]
--- OUTSIDE RECORDS SUMMARY | 2025-05-17 17:06 | XMS_ITS | Clinical Summary ---
Author Organization [facility] Address [address] [place] [address] Care Team Providers Care Principal Secretary Name Role Phone Unknown Primary Care Provider [phone] Allergies No known active allergies Medications No [...] patient's age to complete this topic Insurance [facility] Care Teams Principal Secretary Relationship Specialty Start Date End Date Unknown Unknow Provider Address PCP - General 09/19/17
--- NOTE | 2025-06-15 08:52 | P.CONAN_ITS ---
Documented by User: Kaitlyn Echols NP 06/15/25 08:53 HPI - Anesthesia Eval Consult details Narrative: 49 yr old female for Upper Endoscopy and Colonoscopy High triglycerides: >300 PMFSH Active Problems Active Problems: All Active Problems Vitamin D deficiency (Acute) Pain in left acromioclavicular joint (Acute) Mixed dyslipidemia (Acute) Environmental and seasonal allergies (Acute) Left shoulder pain (Acute) IBS (irritable bowel syndrome) (Acute) Heavy menstrual bleeding (Acute) Endometrial polyp (Acute) Migraine without aura (Acute) Past Medical History Medical History Vitamin D deficiency Pain in left acromioclavicular joint Mixed dyslipidemia Environmental and seasonal allergies History of 2019 novel coronavirus disease (COVID-19) Hip pain, chronic Borderline high cholesterol IBS (irritable bowel syndrome) Endometrial polyp Migraine without aura Anemia Hx of breast lump Hx of anxiety disorder Hx of seasonal allergies Hx of migraine headaches Hx of gastroesophageal reflux (GERD) Family History Family History Father Hx of anxiety disorder Hx of human immunodeficiency virus I infection Mother Diabetes mellitus Hypertension Maternal Grandfather Diabetes mellitus Hypertension CVD (cardiovascular disease) Paternal Grandmother Hx of glaucoma Hx of acute arthritis Paternal Grandfather Myocardial infarction Family history of problems with anesthesia: No Surgical History Surgical History Hx of dilation and curettage (05/01/23) History of lumpectomy of right breast Hx of tubal ligation History of surgical removal of ganglion cyst History of Problems with Anesthesia: No Social History Social History Housing: Apartment Alcohol intake: current Alcohol intake frequency: a few times a week Patient Tobacco Use Status: Never used Tobacco e-Cigarette/Vaping Use: Never Used Second Hand Smoke Exposure: No Use of substances other than those prescribed or required for medical reasons: No Are you DNR?: No Advance Directives: No Advance Directives Information Provided: Yes Current occupational status: employed Sexual orientation: Straight/Heterosexual Gender identity: Female Cognitive needs: No Hearing needs: No Vision needs: Yes Meds Allergies Allergy/AdvReac Type Severity Reaction Status Date / Time diphenhydramine (From AdvReac Anxiety, Verified 06/19/25 08:41 Benadryl) legs getting numb Home Medications ?Medication ?Instructions ?Recorded ?Confirmed ?Last Taken ?Type eletriptan 40 mg tablet (Relpax) 40 mg PO BID PRN Migr gregory Headache 07/09/20 06/15/25 Unknown History topiramate 25 mg tablet (Topamax) 25 mg PO DAILY 07/0906/15/25 Unknown History fremanezumab-vfrm 225 mg/1.5 mL 225 mg subcut QMONTH 0 05/03/25 06/19/25 Unknown History subcutaneous auto-injector (Ajovy) azelastine 137 mcg-fluticasone 50 1 spray intranasal B ID 06/19/25 06/15/25 Unknown History mcg/spray nasal spray (Dymista) Assessment and Plan Final Anesthetic Review Family History of Problems with Anesthesia: No History of Problems with Anesthesia: No Documented by User: Vaishali Roach MD 06/19/25 09:06 [facility] Past Medical History Medical History Vitamin D deficiency Pain in left acromioclavicular joint Mixed dyslipidemia Environmental and seasonal allergies History of 2019 novel coronavirus disease (COVID-19) Hip pain, chronic Borderline high cholesterol IBS (irritable bowel syndrome) Endometrial polyp Migraine without aura Anemia Hx of breast lump Hx of anxiety disorder Hx of seasonal allergies Hx of migraine headaches Hx of gastroesophageal reflux (GERD) Family History Family History Father Hx of anxiety disorder Hx of human immunodeficiency virus I infection Mother Diabetes mellitus Hypertension Maternal Grandfather Diabetes mellitus Hypertension CVD (cardiovascular disease) Paternal Grandmother Hx of glaucoma Hx of acute arthritis Paternal Grandfather Myocardial infarction Surgical History Surgical History Hx of dilation and curettage (05/01/23) History of lumpectomy of right breast Hx of tubal ligation History of surgical removal of ganglion cyst Social History Social History Housing: Apartment Alcohol intake: current Alcohol intake frequency: a few times a week Patient Tobacco Use Status: Never used Tobacco e-Cigarette/Vaping Use: Never Used Second Hand Smoke Exposure: No Use of substances other than those prescribed or required for medical reasons: No Are you DNR?: No Advance Directives: No Advance Directives Information Provided: Yes Current occupational status: employed Sexual orientation: Straight/Heterosexual Gender identity: Female Cognitive needs: No Hearing needs: No Vision needs: Yes Meds Allergies Allergy/AdvReac Type Severity Reaction Status Date / Time diphenhydramine (From AdvReac Anxiety, Verified 06/19/25 08:41 Benadryl) legs getting numb Home Medications ?Medication ?Instructions ?Recorded ?Confirmed ?Last Taken ?Type eletriptan 40 mg tablet (Relpax) 40 mg PO BID PRN Migr gregory Headache 07/09/20 06/15/25 Unknown History topiramate 25 mg tablet (Topamax) 25 mg PO DAILY 07/0906/15/25 Unknown History fremanezumab-vfrm 225 mg/1.5 mL 225 mg subcut QMONTH 0 05/03/25 06/19/25 Unknown History subcutaneous auto-injector (Ajovy) azelastine 137 mcg-fluticasone 50 1 spray intranasal B ID 06/19/25 06/15/25 Unknown History mcg/spray nasal spray (Dymista) Exam Airway Mallampati Class: II TM Dist: >3cm Neck ROM: Full Heart: rrr Lungs: cta Assessment and Plan Assessment Anesthesia Assessment: Anesthesia Plan Discussed and Chart Reviewed Final Anesthetic Review NPO: Yes ASA Class: II Final Preanesthetic Review: No Changes in Pt Med Stat, Meds/Allgs Chart Reviewed and Consent Obtained/Reviewed Patient Risk: Intermediate Procedure Risk: Intermediate Anesthetic Plan Anesthetic Plan: MAC: Disposition: Standard PACU
[2025-06-15 11:39] VITALS: BMI 27.2
[2025-06-19 08:42] VITALS: BMI 27.6
[2025-06-19 08:56] VITALS: BP 112/72; PULSE 74; RESP 13; TEMP 36.3; O2SAT 99
[2025-06-19] MEDS: Lactated Ringers 1,000 ML 100 ML IVCONT (09:03)
--- NOTE | 2025-06-19 09:06 | MHC.SHP ---
Pre-Procedural Eval Section A - 24 Hr Update-Section A only Date of Service: 06/19/25 Section B - Complete if H&P > 30 days Chief Complaint: Colon cancer screening, GERD Relevant Family History (Specify if Yes): No Relevant Social History: None Present Medications: see Short Stay Collaborative assessment Medical History: Significant History (dyslipidemia, seasonal allergies, IBS, migraine) History of Previous Operations: Relevant previous surgery/procedure and date(s) (History of lumpectomy of right breast Hx of tubal ligation History of surgical removal of ganglion cyst) Allergies: Allergies Allergy/AdvReac Type Severity Reaction Status Date / Time diphenhydramine (From AdvReac Anxiety, Verified 06/19/25 08:41 Benadryl) legs getting numb Review of Systems Sugical H&P ROS: Negative: Constitution, Cardiovascular and Respiratory and Yes, Specify: Gastrointestinal (GERD) Exam Surgical H&P Exam: Normal: Heart, Normal: Lungs, Normal: Extremities and Normal: Abdomen Plan Diagnosis/Plan: Unchanged I have reviewed the history and physical and performed a pertinent physical examination on my patient. No changes have occurred unless specified. Time Spent With Patient Time: Total time managing care of this patient today ____ minutes.
--- NOTE | 2025-06-19 10:21 | HO.OPN-COLON ---
Colonoscopy Operative Note Operative Note Date of Service: 06/19/25 Narrative: FLEXIBLE TRANSORAL UPPER GASTROINTESTINAL ENDOSCOPY WITH BIOPSIES AND COLONOSCOPY TILL CECUM WITH BIOPSIES Pre-op diagnosis: Colon cancer screening, GERD, postprandial diarrhea, abdominal bloating Post-op diagnosis: GERD, Gastritis, Diverticulosis, hemorrhoids Endoscopist:? Dagmar García MD Anesthesia:?MAC UPPER ENDOSCOPY Consent: Indications for the procedure and potential complications of bleeding, perforation, reaction to medications and missed diagnosis were discussed with the patient and informed consent was obtained. Instrument: Olympus GIF H 190 mid size upper endoscope Monitoring: Vital signs and clinical assessment, continuous EKG monitoring, Pulse oximetry, Carbon Dioxide monitoring and blood pressure monitoring were done throughout the procedure. Procedure: The patient was placed in the left lateral decubitis position and pre-procedure medications were administered and a bite block was placed. The endoscope was inserted into the mouth and advanced under direct vision to the third part of duodenum. A careful inspection was made as the upper endoscope was withdrawn including a retroflexed examination of the proximal stomach; Findings and interventions are described below. Findings: Larynx: Normal Esophagus: GE junction at 36 cms. No esophagitis or Smith's. Stomach: Mild gastric antral erythema - biopsies were obtained from the antrum. Grade 2 flap valve on retroflexed examination of the cardia. Duodenum: Normal bulb and descending duodenum Biopsies were obtained from descending duodenum to check for celiac sprue Intervention: Biopsies as noted above COLONOSCOPY PROCEDURE NOTE Instrument: Olympus PCF H 190 L variable stiffness pediatric colonoscope Monitoring: Vital signs and clinical assessment, intermittent blood pressure monitoring, continuous EKG monitoring, Pulse oximetry and Carbon Dioxide monitoring were done throughout the procedure. Please see anesthesia flowsheet. Colon withdrawl time was 12 minutes. Procedure: The patient was placed in the left lateral decubitis position and pre-procedure medications were administered. After a digital rectal examination of the ano-rectum, the video colonoscope was inserted into the rectum and advanced through the colon to the cecum. The colonoscope was slowly withdrawn in a retrograde panoramic fashion and the colon mucosa was carefully examined including a retroflexed view of the rectum. Findings and interventions are described below. Procedure Difficulty: without difficulty Findings: Terminal Ileum: Distal 10 cms was examined and appeared normal - random biopsies were obtained Cecum: Normal Ascending Colon: Normal Transverse Colon: Normal Descending Colon: Normal Sigmoid Colon: Moderate diverticulosis Rectum: Normal Ano-rectum: Normal Colon preparation: Excellent. [place] Bowel Preparation Scale Right colon; 3 Transverse colon: 3 Left colon; 3 (0 = Unprepared colon segment with mucosa not seen due to solid stool that cannot be cleared. 1 = Portion of mucosa of the colon segment seen, but other areas of the colon segment not well seen due to staining, residual stool and/or opaque liquid. 2 = Minor amount of residual staining, small fragments of stool and/or opaque liquid, but mucosa of colon segment seen well. 3 = Entire mucosa of colon segment seen well with no residual staining, small fragments of stool or opaque liquid) Impression and Post Procedure Diagnosis: Endoscopy Findings: ESOPHAGUS: Normal STOMACH: Mild antral gastritis DUODENUM: Normal - biopsied to check for celiac sprue. Colonoscopy Findings: No polyps were detected Random biopsies were obtained from the right and left colon to check for microscopic colitis. Moderate diverticulosis seen in the sigmoid colon Plan: Pt has a FU appointment on 08/11/25 with Cheri Barrera NP Repeat Colonoscopy in 10 year if colon biopsies are normal. A summary of above findings and relevant handouts were given to the patient.
[2025-06-19 10:59] VITALS: BP 95/61; PULSE 80; RESP 16; TEMP 36.2; O2SAT 99
[2025-06-19 11:14] VITALS: BP 103/80; PULSE 82; RESP 16; TEMP 36.3; O2SAT 99
== END 2025-06-19 11:51 | disposition home or self-care (01) ==
PROVIDERS: PCP Internal Medicine; Visit Provider Internal Medicine Gastroenterology
PROC: (CPT 45380; principal; 2025-06-19 10:20)
DX: Z12.11 Encounter for screening for malignant neoplasm of colon (principal); K21.9 Gastro-esophageal reflux disease without esophagitis; K58.9 Irritable bowel syndrome, unspecified; K64.8 Other hemorrhoids; L53.8 Other specified erythematous conditions; K29.70 Gastritis, unspecified, without bleeding; K57.30 Diverticulosis of large intestine without perforation or abscess without bleeding
CPT/HCPCS: 45380; 44377; 88305; 88313; 88342; J2704

== ENCOUNTER → 2025-06-19 08:12 | Outpatient (BNV) | payer OTHER, SELFPAY | PROVIDERS: PCP Internal Medicine; Visit Provider Internal Medicine Gastroenterology | DX: Z12.11 Encounter for screening for malignant neoplasm of colon (principal); K57.30 Diverticulosis of large intestine without perforation or abscess without bleeding; K64.8 Other hemorrhoids; K21.9 Gastro-esophageal reflux disease without esophagitis; K29.70 Gastritis, unspecified, without bleeding | CPT/HCPCS: 43239; 45380 ==